=== PATIENT | male | born 1975 ===

== ENCOUNTER 2024-06-18 14:34 | Outpatient (AMB) | payer MEDICAID, SELFPAY ==
--- NOTE | 2024-06-18 14:36 | MHC.OFFVIS ---
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 Pt states this started years ago with no known injury. Pt denies any surgeries or injections on either hand. Pt states the pain comes and goes. Pt states his right hand and wrist hurt more than his left. Pt states his cyst on his left thumb has gotten smaller and isn't as painful but states he does have pain when he puts pressure on it. 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 The patient states that all of these issues began ?years ago?, and have remained constant since that time. The patient does report that his thumb mass does increase and decrease in size, and then it was fairly small at this time. Patient does report that it causes him significant discomfort when he bumps it thing on the mass of his thumb or he presses on it. Patient reports that his numbness and tingling is intermittent, but daily, and worse at night. Patient states that he feels like he gets significant hand cramps while sleeping, and that this wakes him from sleep. Patient also reports that his wrist pain is primarily in the volar aspect of the bilateral wrists, and radiates into the forearm bilaterally. Review of Systems Const All systems reviewed & are unremarkable except as noted in HPI and below Physical Exam Extrem Other: Neuro: Normal sensation of the tips of all digits of bilateral hands in the office today No thenar or intrinsic wasting. Good APB muscle firing and good finger cross. Vascular: Capillary refill brisk. Pain: Patient reports tenderness to palpation of at about the level of the mass of the dorsal aspect of his left thumb No tenderness to palpation about bilateral radial styloid, ulnar styloid, DRUJ is, or elsewhere on bilateral hands and wrists Patient does report slight discomfort with resisted flexion of bilateral wrists No pain with resisted extension of bilateral wrists ROM: Patient can make a fist and extend all their digits. Flexion and extension of bilateral wrists full and intact Skin: No lacerations or abrasions noted. There is noted to be an approximately 2.5 cm x 1 cm mass noted over the dorsal IP joint of the left thumb, that feels fluid filled to palpation General: No ecchymosis. No erythema or evidence of infection. Assessment & Plan Assessment & Plan (1) Tendonitis of both wrists: Code(s): M77.8 - Other enthesopathies, not elsewhere classified Category: Medical (2) Numbness and tingling in both hands: Code(s): R20.0 - Anesthesia of skin; R20.2 - Paresthesia of skin Category: Medical (3) Mass of skin of left thumb: Code(s): R22.32 - Localized swelling, mass and lump, left upper limb Category: Medical Plan 1. Numbness and tingling of bilateral hands Symptoms intermittent, but daily, worse at night At this time, patient does an EMG or nerve conduction study file Patient was referred for EMG and nerve conduction study to assess the health of the nerves of bilateral upper extremities Patient is amenable to this plan Patient will follow-up after EMG and nerve conduction study with Dr. Cortez for results review and discussion of further treatment options if indicated 2. Mass of left thumb Mass increases and decreases in size with time, feels fluid filled the palpation Patient will be evaluated by Dr. Cortez after EMG and nerve conduction study, and at that time he can also have a discussion with her about potential treatment options available for this mass, including but not limited to aspiration and/or excision Patient understands this and is amenable to this plan 3. Flexor tendinitis of bilateral wrists Patient was referred to occupational therapy for range of motion and strengthening of bilateral wrists in the setting of wrist tendinitis Patient is advised on the importance of activity modification in the setting of tendinitis Patient is also advised on conservative pain management measures, such as rest, ice, elevation, topical pain medication, and [id number] pain medication as needed Patient understands this and is amenable to this plan Patient will follow-up as needed with concerns Orders: Orders NE electromyogram (EMG) 06/18/24 R20.0 - Anesthesia of skin, R20.2 - Paresthesia of skin NE nerve conduction velocity 06/18/24 R20.0 - Anesthesia of skin, R20.2 - Paresthesia of skin OT Evaluation and Treatment 06/18/24 M77.8 - Other enthesopathies, not elsewhere classified Coding Level of Care Code New Pt Level 3 (51698) Diagnoses Tendonitis of both wrists M77.8 Numbness and tingling in both hands R20.0; R20.2 Mass of skin of left thumb R22.32
== END 2024-06-18 15:09 | disposition home or self-care (01) ==
PROVIDERS: PCP Physician Assistant Medical
DX: M77.8 Other enthesopathies, not elsewhere classified (principal); R20.0 Anesthesia of skin; R20.2 Paresthesia of skin; R22.32 Localized swelling, mass and lump, left upper limb
CPT/HCPCS: 99203

== ENCOUNTER → 2024-06-18 14:34 | Outpatient (BNVA) | payer MEDICAID, SELFPAY | PROVIDERS: PCP Physician Assistant Medical | DX: M79.642 Pain in left hand (principal); M79.641 Pain in right hand; L72.9 Follicular cyst of the skin and subcutaneous tissue, unspecified; R20.0 Anesthesia of skin; R20.2 Paresthesia of skin; M77.8 Other enthesopathies, not elsewhere classified | CPT/HCPCS: 99212 ==

== ENCOUNTER 2024-06-26 09:56 | Outpatient (AMB) | payer MEDICAID, SELFPAY ==
--- NOTE | 2024-06-26 10:03 | A.OFFVIS_ITS ---
Intake Visit Reasons: New prob - Bilat shoulder pain Intake Note: Manjinder a 49 year old right hand dominant male who presents today for an evaluation of bilateral shoulder pain. Patient reports his pain has been present for a while, about 1-2 years. His pain in his right shoulder is worse. He is attending PT which has helped with his left shoulder. Limited ROM. His pain is worse with sleeping as well as numbness and tingling in his hand. Project Financial Analyst Required: Yes Project Financial Analyst Services: Project Financial Analyst Present Project Financial Analyst Name: Mariela ID#[id number] Allergies Penicillins Allergy (Verified 06/26/24 10:17) Unknown Medication List - Last Reconciled 06/26/24 by Krupa Taveras PA-C atorvastatin 10 mg PO BEDTIME cetirizine 10 mg PO DAILY chlorthalidone 25 mg PO DAILY escitalopram oxalate 20 mg PO DAILY fluticasone propionate 50 mcg/actuation 2 sprays intranasal BEDTIME hydroxyzine HCl 50 mg PO TID PRN levothyroxine 150 mcg PO DAILY omeprazole 20 mg PO QAM HPI HPI New prob - Bilat shoulder pain: Details: 49-year-old right hand dominant male who presents to the office today with an integrated marketing manager for an evaluation of bilateral shoulder pain for over a year. He states he has weakness, limited ROM and pain in his bilateral shoulder that is worse on the right shoulder. 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 He also experiences numbness and tingling in his hand at night. He has been attending physical therapy and working on home exercises that does not provide him much relief. [facility] Surgical History (Updated 06/26/24 @ 10:12 by ESTRELLA Santos) History of surgery on lower extremity Hx of thyroidectomy Social History (Updated 06/26/24 @ 10:13 by ESTRELLA Santos) Patient Tobacco Use Status: Never used Tobacco Current occupational status: unemployed Current occupation: right hand dominant Review of Systems Const All systems reviewed & are unremarkable except as noted in HPI and below Physical Exam Extrem Other: Left shoulder: Normal to inspection. Tenderness over the bicipital groove and along the deltoid region of the shoulder. Forward flexion to 175, external rotation to 90, internal rotation to S1. 5/5 RTC strength. Negative Esteves and cross body abduction. NVI. Right shoulder: Normal to inspection. Tenderness over the bicipital groove and along the deltoid region of the shoulder. Forward flexion to 175, external rotation to 90, internal rotation to S1. 5/5 RTC strength. Positive Esteves. NVI. Office Procedures Joint Injection/Aspiration Joint Injection/Aspiration Primary Site: right shoulder Prep: site was prepped using aseptic technique, ethochloride spray was applied and injection warnings given Injected: 80 mg of, DepoMedrol, with 8 mL of, 1% plain lidocaine and in the subcromial space Approach Used: posterolateral Procedure: The patient tolerated the procedure well and there was some relief with the local anesthesia Coding 07755 - Glenohumeral/Tronchanteric Bursa/Intraarticular Procedure code (CPT) selection complete Results Reviewed Results Reviewed: Xrays were obtained in the office today and personally reviewed by me of lisseth shoulder show type two acromion Assessment & Plan Assessment & Plan (1) Tendonitis of both shoulders: Code(s): M77.8 - Other enthesopathies, not elsewhere classified Category: Medical Plan We discussed options today, which include steroid injection. The patient did consent to move forward with the right shoulder injection, which was tolerated well. I recommended rest, ice, and elevation and OTC anti-inflammatories as needed for discomfort. If symptoms persist over the next 6-8 weeks, they will contact the office, otherwise as needed. He was also referred to a course of physical therapy for his bilateral shoulders. Orders: Orders XR shoulder LT min 2V Today M25.512 - Pain in left shoulder PT Evaluation and Treatment Today M77.8 - Other enthesopathies, not elsewhere classified XR shoulder RT min 2V Today M25.511 - Pain in right shoulder Patient Instructions: Scribed for Krupa Taveras PA-C, by Mahamed Caal medical office asst, on 06/26/2024 at 10:00 AM EST.? I, Krupa Taveras PA-C, have personally reviewed and agree with the information entered by the scribe. Coding Level of Care Code Est Pt Level 3 (33163) Complex EM visit Add On G2211 Diagnoses Tendonitis of both shoulders M77.8 CPT Codes Coding - Joint 7: 13249 - Glenohumeral/Tronchanteric Bursa/Intraarticular ([id number])
== END 2024-06-26 10:47 | disposition home or self-care (01) ==
PROVIDERS: PCP Physician Assistant Medical; Visit Provider Physician Assistant
DX: M25.511 Pain in right shoulder (principal); M25.512 Pain in left shoulder; M77.8 Other enthesopathies, not elsewhere classified
CPT/HCPCS: 20610; 99213

== ENCOUNTER 2024-06-26 10:18 | Outpatient (REF) | payer MEDICAID, SELFPAY ==
--- NOTE | ~2024-06-26 | XR_ITS ---
EXAMINATION: XR SHOULDER RIGHT 3 VIEWS CLINICAL INFORMATION: Pain in right shoulder M25.511. COMPARISON: None available TECHNIQUE: AP neutral, supraspinatus, and axial seated views of the right shoulder. FINDINGS: The bones and soft tissues are normal. No fracture. Glenohumeral and acromioclavicular alignment is anatomic with normal joint space. No abnormal soft tissue calcifications. XR/XR shoulder RT min 2V IMPRESSION: Normal right shoulder. Electronically signed by: Brian Hanna MD 08/15/2024 11:00 AM [facility]
--- NOTE | ~2024-06-26 | XR_ITS ---
EXAMINATION: XR SHOULDER LEFT 3 VIEWS CLINICAL INFORMATION: Pain in left shoulder M25.512. COMPARISON: None available TECHNIQUE: Neutral AP, supraspinatus outlet and axial seated views of the left shoulder. FINDINGS: The bones and soft tissues are normal. No fracture. Glenohumeral and acromioclavicular alignment is anatomic with normal joint space. No abnormal soft tissue calcifications. XR/XR shoulder LT min 2V IMPRESSION: Normal left shoulder. Electronically signed by: Brian Hanna MD 08/15/2024 10:49 AM [facility]
== END 2024-06-26 10:19 | disposition home or self-care (01) ==
LOC: HO.HOSX 10:18
PROVIDERS: Visit Provider Physician Assistant
DX: M25.512 Pain in left shoulder (principal); M25.511 Pain in right shoulder; M77.8 Other enthesopathies, not elsewhere classified
CPT/HCPCS: 20610; 73030; 99212; J1010; J2003

== ENCOUNTER 2024-07-16 10:36 | Outpatient (REF) | payer MEDICAID, SELFPAY ==
--- NOTE | 2024-07-16 10:40 | EMG_ITS ---
Chief complaint: Bilateral hand numbness Reason for referral: Evaluate for Carpal Tunnel Syndrome Referred by: Guille MCKOY Procedure done: Bilateral upper extremities NCS/EMG Precautions and/or limitations: None The limb temperature was monitored continuously and remained between 32-36 degrees C during the performance of the NCS. Nerve Conduction Studies Anti Sensory Summary Table ?Stim Site NR Onset (ms) Norm Onset (ms) Peak (ms) Norm Peak (ms) O-P Amp (?V) Norm O-P Amp Site1 Site2 Delta-0 (ms) Dist (cm) Andreas (m/s) Norm Andreas (m/s) Left Median Anti Sensory (2nd Digit) Wrist ? 3.0 4.3 <3.6 8.4 >10 Wrist 2nd Digit 3.0 14.0 47 Right Median Anti Sensory (2nd Digit) Wrist ? 3.4 4.9 <3.6 1.9 >10 Wrist 2nd Digit 3.4 14.0 41 Right Radial Anti Sensory (Thumb) Forearm ? 1.4 2.1 <3.1 18.9 Forearm Thumb 1.4 0.0 Left Ulnar Anti Sensory (5th Digit) Wrist ? 0.3 2.8 <3.7 22.0 >15.0 Wrist 5th Digit 0.3 14.0 467 Right Ulnar Anti Sensory (5th Digit) Wrist ? 1.0 2.9 <3.7 18.9 >15.0 Wrist 5th Digit 1.0 14.0 140 Motor Summary Table ?Stim Site NR Onset (ms) Norm Onset (ms) O-P Amp (mV) Norm O-P Amp iAmp (mV) Amp (1st) (%) Site1 Site2 Delta-0 (ms) Dist (cm) Andreas (m/s) Norm Andreas (m/s) Left Median Motor (Abd Poll Brev) Wrist ? 4.9 <3.9 12.1 >4.5 14.1 100.0 Elbow Wrist 4.2 24.0 57 >45 Elbow ? 9.1 11.9 14.2 98.3 Right Median Motor (Abd Poll Brev) Wrist ? 4.8 <3.9 9.7 >4.5 11.5 100.0 Elbow Wrist 4.2 24.5 58 >45 Elbow ? 9.0 9.3 11.5 95.9 Left Ulnar Motor (Abd Dig Minimi) Wrist ? 2.6 <3.0 7.2 >5 8.9 100.0 B Elbow Wrist 3.7 24.0 65 >45 B Elbow ? 6.3 7.0 8.9 97.2 A Elbow B Elbow 1.5 10.0 67 >45 A Elbow ? 7.8 7.0 8.9 97.2 Right Ulnar Motor (Abd Dig Minimi) Wrist ? 2.7 <3.0 9.9 >5 12.3 100.0 B Elbow Wrist 3.8 23.0 61 >45 B Elbow ? 6.5 9.3 11.7 93.9 A Elbow B Elbow 1.1 10.0 91 >45 A Elbow ? 7.6 9.4 12.0 94.9 EMG ?Side Muscle Nerve Root Ins Act Fibs Psw Amp Dur Poly Recrt Int Pat Comment Right 1stDorInt Ulnar C8-T1 Nml Nml Nml Nml Nml 0 Nml Complete Right FlexCarRad Median C6-7 Nml Nml Nml Nml Nml 0 Nml Complete Right Biceps Musculocut C5-6 Nml Nml Nml Nml Nml 0 Nml Complete Right Triceps Radial C6-7-8 Nml Nml Nml Nml Nml 0 Nml Complete Right Deltoid Axillary C5-6 Nml Nml Nml Nml Nml 0 Nml Complete Left 1stDorInt Ulnar C8-T1 Nml Nml Nml Nml Nml 0 Nml Complete Left FlexCarRad Median C6-7 Nml Nml Nml Nml Nml 0 Nml Complete Left Biceps Musculocut C5-6 Nml Nml Nml Nml Nml 0 Nml Complete Left Triceps Radial C6-7-8 Nml Nml Nml Nml Nml 0 Nml Complete Left Deltoid Axillary C5-6 Nml Nml Nml Nml Nml 0 Nml Complete FINDINGS: Bilateral median motor nerves showed prolonged distal latency, normal amplitude and normal conduction velocity. Bilateral median sensory nerve showed prolonged peak latency and small amplitude. All other nerves tested were within normal. Concentric needle EMG was performed in selected muscles of the bilateral upper extremities. Study did not reveal signs of electric abnormalities as shown in the table above. IMPRESSION: 1. This is an abnormal study. 2. There is electrodiagnostic evidence for bilateral moderate-severe median neuropathy at the wrist, consistent with carpal tunnel syndrome. 3. There is no electrodiagnostic evidence for ulnar neuropathy, brachial plexopathy, or cervical radiculopathy. Thank you for your kind referral. Coco Corona MD, MARIELA Board Certified, [place] Board [employer] and Rehabilitation (ABPMR) Board Certified, [place] Board of Electrodiagnostic Medicine (ABEM) CODIN [phone] 2 MTDD
== END 2024-07-16 10:37 | disposition home or self-care (01) ==
LOC: HO.NEURO 10:36
PROVIDERS: PCP Physician Assistant Medical
DX: R20.0 Anesthesia of skin (principal); R20.2 Paresthesia of skin
CPT/HCPCS: 20610; 95886; 95911; 99212; J1010; J2003

== ENCOUNTER 2024-07-16 10:52 | Outpatient (REF) | payer MEDICAID, SELFPAY | END 2024-07-16 10:53 | disposition home or self-care (01) | LOC: HO.HOSX 10:52 | PROVIDERS: Visit Provider Physician Assistant | DX: M25.562 Pain in left knee (principal); M25.561 Pain in right knee | CPT/HCPCS: 73560; 73562 ==

== ENCOUNTER 2024-07-16 12:33 | Outpatient (AMB) | payer MEDICAID, SELFPAY ==
--- NOTE | 2024-07-16 12:56 | MHC.OFFVIS ---
Vital Signs 07/16/24 13:07 Height 6 ft 2 in Weight 220 lb BMI 28.2 Intake Visit Reasons: New prob- left knee pain Intake Note: Manjinder is a 49 year old male who presents to the office today for an evaluation of left knee pain. Patient reports his pain has been present for quite some time. He has had injections in the past as well as attended PT. He also mentions having a left knee meniscus repair on 03/23/23 with [facility] for a WC injury. He states due to his insurance he was referred to [facility] orthopedics. He has intermittent pain however more constant than not and is located around his knee. He is unable to lift heavy objects, run or kneel on his knee. He has difficulty with stair use. Finds very little relief with ibuprofen and no relief Tylenol. Allergies Penicillins Allergy (Verified 07/16/24 13:13) Unknown HPI HPI New prob- left knee pain: Details: The patient is a 49-year-old male who presents to the office today with a new problem of left knee pain. He was previously seen in the office for shoulder pain, which has resolved now. He states that he underwent arthroscopic knee surgery back in March 2023, for repair of the meniscus, and did well after that. He did not need any brace after the surgery. He reports later he met with an accident in September 2023, and injured his left knee. He went to see at [facility] after workers? comp approved for the surgery, but later his insurance got declined. He did an MRI of left knee at [facility] in October 2023, which showed some arthritis around the knee, ACL and PCL are intact. There is a loose bony part inside of the knee. He still continues to have pain behind the knee and also gets pain if he sits for a long time. He is interested in getting cortisone injection for the knee on today?s visit. [facility] Surgical History History of surgery on lower extremity Hx of thyroidectomy Social History Patient Tobacco Use Status: Never used Tobacco Current occupational status: unemployed Current occupation: right hand dominant Review of Systems Const All systems reviewed & are unremarkable except as noted in HPI and below Physical Exam Vital Signs: BMI result Body Mass Index 28.2 Extrem Other: Left knee: Skin intact, no erythema or joint effusion. Tenderness along the lateral retropatellar tenderness. Full ROM with crepitus. Negative Santana?s. No ligamentous laxity. NVI. Office Procedures AMB Joint Injection/Aspiration Joint Injection/Aspiration Primary Site: left knee Prep: site was prepped using aseptic technique, ethochloride spray was applied and injection warnings given Injected: 80 mg of, DepoMedrol, with 8 mL of, 1% plain lidocaine and in the joint Approach Used: anterolateral Procedure: The patient tolerated the procedure well and there was some relief with the local anesthesia Coding - Glenohumeral/Tronchanteric Bursa/Intraarticular Procedure code (CPT) selection complete Assessment & Plan Assessment & Plan (1) Patellofemoral arthritis of right knee: Code(s): M17.11 - Unilateral primary osteoarthritis, right knee Category: Medical Plan We discussed options today, which include steroid injection. The patient did consent to move forward with left knee steroid injection, which was tolerated well.? I recommended rest, ice and elevation and OTC antiinflammatories prn for discomfort. He was also referred to PT. If symptoms persist over the next 6-8 weeks, they will contact our office, otherwise, prn Scribed for Krupa Taveras PA-C, by Mauro Vega medical billing coordinator, on 07/16/2024 at 13:00 PM EL. I, Krupa Tavears PA-C, have personally reviewed and agree with the information entered by the scribe. Orders: Orders XR knee LT 3V Today M25.562 - Pain in left knee XR knee RT 1V Today M25.561 - Pain in right knee PT Evaluation and Treatment Today M17.11 - Unilateral primary osteoarthritis, right knee Coding Level of Care Code Est Pt Level 3 (65435) Complex EM visit Add On G2211 Diagnoses Patellofemoral arthritis of right knee M17.11 CPT Codes Coding - Joint 7: 86953 - Glenohumeral/Tronchanteric Bursa/Intraarticular ([id number])
[2024-07-16 13:07] VITALS: BMI 28.2
== END 2024-07-16 13:57 | disposition home or self-care (01) ==
PROVIDERS: PCP Physician Assistant Medical; Visit Provider Physician Assistant
DX: M17.11 Unilateral primary osteoarthritis, right knee (principal); G56.03 Carpal tunnel syndrome, bilateral upper limbs
CPT/HCPCS: 20610; 95886; 95911; 99213

== ENCOUNTER 2024-07-17 15:34 | Outpatient (REF) | payer MEDICAID, SELFPAY | END 2024-07-17 15:35 | disposition home or self-care (01) | LOC: HO.HOSX 15:34 | PROVIDERS: Visit Provider Physician Assistant | DX: Z13.89 Encounter for screening for other disorder (principal) ==

== ENCOUNTER 2024-07-18 09:30 | Outpatient (AMB) | payer MEDICAID, SELFPAY ==
--- NOTE | 2024-07-18 09:47 | MHC.OFFVIS ---
Vital Signs 07/18/24 09:53 Height 6 ft 2 in Weight 220 lb BMI 28.2 Intake Visit Reasons: New prob- Lt hip pain Intake Note: Manjinder a 49 year old male who presents today for an evaluation of left hip pain. Patient reports his hip pain has been present since 2019 after a fall to the ground on his left side. His pain is located at the lateral aspect of hip. He describes his pain as throbbing as well as a pinching sensation. He will hear cracking with ROM. He has tried and failed cortisone injection last year. He does at home exercises which helps. Repair Technician Name: [id number] Allergies Penicillins Allergy (Verified 07/16/24 13:13) Unknown Medication List - Last Reconciled 07/18/24 by Krupa Taveras PA-C atorvastatin 10 mg PO BEDTIME cetirizine 10 mg PO DAILY chlorthalidone 25 mg PO DAILY escitalopram oxalate 20 mg PO DAILY fluticasone propionate 50 mcg/actuation 2 sprays intranasal BEDTIME hydroxyzine HCl 50 mg PO TID PRN levothyroxine 150 mcg PO DAILY omeprazole 20 mg PO QAM HPI HPI New prob- Lt hip pain: Details: 49-year-old male who presents to the office today with an national accounts recruiter for an evaluation of left hip pain. He reports his pain started since 2019 after slipping and falling on his left hip. He currently states he has throbbing pain at the lateral aspect of his hip that is aggravated with moving a certain way, bending, stairs, sitting down and getting in and out of his car. He also experiences difficulty with ambulation and hears a cracking sensation in his hip with certain motions. He denies any numbness or tingling. He has tried cortisone injection last year without relief. He also had physical therapy in the past which worsened his pain. He works on home exercises that provides him relief. [facility] Surgical History History of surgery on lower extremity Hx of thyroidectomy Social History Patient Tobacco Use Status: Never used Tobacco Current occupational status: unemployed Current occupation: right hand dominant Review of Systems Const All systems reviewed & are unremarkable except as noted in HPI and below Physical Exam Vital Signs: BMI result Body Mass Index 28.2 Extrem Other: Left hip: Normal to inspection, ambulates with a slight limp. Has mild discomfort with internal and extension rotation of hip. No significant stiffness. Mild discomfort with hip flexion against resistance. NVI. Results Reviewed Results Reviewed: Xrays were obtained in the office today and personally reviewed by me of the right hip show mild oa with loose body formation Assessment & Plan Assessment & Plan (1) Osteoarthritis of left hip: Code(s): M16.12 - Unilateral primary osteoarthritis, left hip Category: Medical Plan An MRI of the left hip was ordered to further evaluate the hip and surrounding structures given the limited mobility and increased pain he has with activities. Once the scan is complete, I will contact him to discuss the next step in his treatment. Orders: Orders XR hip LT min 2V Today M25.552 - Pain in left hip MR hip LT wo con Today M16.12 - Unilateral primary osteoarthritis, left hip Patient Instructions: Scribed for Krupa Taveras PA-C, by Mahamed Caal medical review specialist, on 07/18/2024 at 9:45 AM EST.? I, Krupa Taveras PA-C, have personally reviewed and agree with the information entered by the scribe. Coding Level of Care Code Est Pt Level 3 (54975) Complex EM visit Add On G2211 Diagnoses Osteoarthritis of left hip M16.12
[2024-07-18 09:53] VITALS: BMI 28.2
== END 2024-07-18 10:20 | disposition home or self-care (01) ==
PROVIDERS: PCP Physician Assistant Medical; Visit Provider Physician Assistant
DX: M16.12 Unilateral primary osteoarthritis, left hip (principal)
CPT/HCPCS: 99213

== ENCOUNTER 2024-07-18 09:30 | Outpatient (REF) | payer MEDICAID, SELFPAY ==
--- NOTE | ~2024-07-18 | XR_ITS ---
EXAMINATION: XR HIP, LEFT CLINICAL INFORMATION: M25.552 - Pain in left hip COMPARISON: None available. TECHNIQUE: Two views of the left hip. FINDINGS: No fracture. Alignment is anatomic. Hip joint space is maintained. There is heterotopic ossification off of the greater trochanter of the left femoral neck consistent with healing from a prior trauma. There is old healed fracture partially visualized within the mid left femur XR/XR hip LT min 2V IMPRESSION: No acute process. Heterotopic ossification off of the greater trochanter of the left femoral neck consistent with healing from a prior trauma. Electronically signed by: Brian Hanna MD 08/15/2024 10:59 AM [facility]
== END 2024-07-18 09:31 | disposition home or self-care (01) ==
LOC: HO.HOSX 09:30
PROVIDERS: PCP Physician Assistant Medical; Visit Provider Physician Assistant
DX: M25.552 Pain in left hip (principal); M16.12 Unilateral primary osteoarthritis, left hip
CPT/HCPCS: 73502; 99212

== ENCOUNTER 2024-08-04 13:25 | Outpatient (AMB) | payer MEDICAID, SELFPAY ==
--- NOTE | 2024-08-04 14:02 | A.OFFVIS_ITS ---
Vital Signs 08/04/24 14:03 Height 6 ft 2 in Weight 220 lb BMI 28.2 Handedness Right Intake Visit Reasons: OV-EMG B/L hand Review Intake Note: Manjinder is a 49 year old right hand dominant male who presents today for an EMG review of his bilateral hands. EMG done on 07/16/2024. He would like to discuss treatment options. Collection Analyst Required: Yes Collection Analyst Language: Senior Occupational Therapist Name: [id number] Allergies Penicillins Allergy (Verified 08/04/24 14:03) Unknown HPI HPI OV-EMG B/L hand Review: Details: Patient is a 49-year-old male presents for EMG review of bilateral hands. Patient states that his symptoms have remained intermittent, but daily, and worse at night. The patient does express some apprehension about surgical intervention for his carpal tunnel syndrome. No other Acute concerns at this time. [facility] Surgical History History of surgery on lower extremity Hx of thyroidectomy Social History Patient Tobacco Use Status: Never used Tobacco Current occupational status: unemployed Current occupation: right hand dominant Physical Exam Vital Signs: BMI result Body Mass Index 28.2 Extrem Other: Neuro: Normal sensation of the tips of all digits of bilateral hands in the office today No thenar or intrinsic wasting. Good APB muscle firing and good finger cross. Vascular: Capillary refill brisk. Pain: Patient reports tenderness to palpation of at about the level of the mass of the dorsal aspect of his left thumb No tenderness to palpation about bilateral radial styloid, ulnar styloid, DRUJ is, or elsewhere on bilateral hands and wrists Patient does report slight discomfort with resisted flexion of bilateral wrists No pain with resisted extension of bilateral wrists ROM: Patient can make a fist and extend all their digits. Flexion and extension of bilateral wrists full and intact Skin: No lacerations or abrasions noted. There is noted to be an approximately 2.5 cm x 1 cm mass noted over the dorsal IP joint of the left thumb, that feels fluid filled to palpation General: No ecchymosis. No erythema or evidence of infection. Assessment & Plan Assessment & Plan (1) Carpal tunnel syndrome, bilateral: Code(s): G56.03 - Carpal tunnel syndrome, bilateral upper limbs Category: Medical Plan Carpal tunnel syndrome, right Symptoms intermittent, daily, worse at night I educated the patient about the condition. I discussed both operative and nonoperative treatment options. The patient would like to proceed with surgery. The risks and benefits of operative treatment were discussed with the patient and the patient wishes to proceed with surgery. These risks include, but are not limited to, risk of damage to blood vessels, nerves, tendons, infection, recurrence, incomplete relief of preoperative symptoms, persistent pain, possible need for further surgery, and the risks associated with regional blocks and/or anesthesia. Plan is to take the patient to the operating room at some point in the next few weeks for the following procedures: 1. Right carpal tunnel release under local anesthesia All of the preoperative paperwork including the consent was discussed today. All of the patient's questions were answered in the clinic today. The patient understands that they will be in contact with our surgical appliances salesperson to discuss scheduling their procedure. Patient denies diabetes, blood thinners, asthma, heart issues, lung issues, kidney issues, or current smoking. 2. Carpal tunnel syndrome, left Symptoms intermittent, daily, worse at night At this time, patient would like to proceed with operative intervention on the right side prior to any intervention of the left, as he finds this side more bothersome Patient is educated that at his postoperative visits from his right-sided surgery, we can get the left signed up if he is recovering Patient was amenable to this Patient will follow-up for surgery on given surgical date, sooner acute Coding Level of Care Code Est Pt Level 4 (32869) Diagnoses Carpal tunnel syndrome, bilateral G56.03
[2024-08-04 14:03] VITALS: BMI 28.2
== END 2024-08-04 14:47 | disposition home or self-care (01) ==
PROVIDERS: PCP Internal Medicine Hematology & Oncology
DX: G56.03 Carpal tunnel syndrome, bilateral upper limbs (principal)
CPT/HCPCS: 99214

== ENCOUNTER → 2024-08-04 13:25 | Outpatient (BNVA) | payer MEDICAID, SELFPAY | PROVIDERS: PCP Internal Medicine Hematology & Oncology | DX: G56.03 Carpal tunnel syndrome, bilateral upper limbs (principal) | CPT/HCPCS: 99212 ==

== ENCOUNTER 2024-08-05 08:49 | Outpatient (RCR) | payer MEDICAID, SELFPAY ==
--- NOTE | 2024-07-07 12:19 | MHC.OT.EP ---
[address] [phone] Occupational Therapy Plan of Care Patient Name: Manjinder Moreno Date of Evaluation: 07/07/24 Diagnosis: B wrist pain Pain Location: volar side of R hand Pain Score: 5 Pain Scale Used: Numeric (0 - 10) Aggravating Factors: use rotation of wrist / pressure into hand; pain increases from 4/10 when during Alleviating Factors: restin his hand is the only thing that helps ; tylenol Ibuprofen, and Aleeve only give MILD relied Assessment: Pt is a 49 yr. old R hand dominant reports when he is using volar side of hand the tendons are pulling. He reports only feeling pain/ tightness on his volar R hand. He reports it has been bothering him for a few mos. He is having PT performed to his R shoulder at [facility] and reports intermittent paresthesia in his R hand since beginning Physical Therapy. He denies any night time bracing, MRI, or cortisones for wrist/hands. He has an EMG scheduled here at [facility] for 07/16/24. He has been referred to skilled OT therapy for decrease of pain, and increase of strength and functional use of his R hand Phalens (+) R (-)L Reverse phalens (+)R Finklestein : mild (+) Tinels : (+) R L (+) MILD Frequency and Duration: The patient will be seen 2xs a week for 4 weeks Short Term Goals: Pt will be complaint w/ his HEP Pt will be complaint w/ night time splinting Pt will report 3/10 pain w/ activity Tear Down Matcher Goals: Pt will report using his R hand to drive w/out complaints of pain Pt will will gain 10lbs of R hand care center manager to 55 lbs Pt will report a 2/10 pain w/ activity Treatment Plan: Therapeutic Exercise Therapeutic Activity Home Exercise Program Splinting Neuro Re-ed Patient Education Desensitization/Sensory Re-ed Edema Control ADL Training Ultrasound NMES Iontophoresis Paraffin Fluidotherapy MHP Cold Packs Joint Mobilization Soft Tissue Mobilization Kinesiotaping Other (see comments) Trial Iontophoresis ; pt. can only attend 1 x a week for availability reasons Electronically Signed By: Lexus Thomas OTR/L Please Sign and return to therapist. Thank you once again for your referral.
== END 2024-08-05 09:52 | disposition home or self-care (01) ==
LOC: HO.OT 08:49
PROVIDERS: PCP Physician Assistant Medical
DX: M77.8 Other enthesopathies, not elsewhere classified (principal)
CPT/HCPCS: 97035; 97110; 97140; 97166

== ENCOUNTER 2024-08-20 18:51 | Outpatient (REF) | payer MEDICAID, SELFPAY ==
--- NOTE | ~2024-08-20 | MR_ITS ---
EXAMINATION: MR HIP WITHOUT CONTRAST, LEFT CLINICAL INFORMATION: Osteoarthritis left hip COMPARISON: X-rays of the pelvis and left hip 07/18/2024 TECHNIQUE: MRI of the left hip was obtained using routine sequences on a high-field magnet. FINDINGS: Osseous structures: Left hip joint: Minimal cartilage heterogeneity along the superior aspect of the femoral articular surface. Overall minimal arthrosis. No effusion. There is ossification/heterotopic ossification abutting the greater tuberosity. There is adjacent metallic artifact as well as changes within the proximal femur compatible with prior surgery which appears to be related to prior femoral marco antonio placement subsequently removed. Remaining bone and joints in the pelvis are normal. Ligamentum teres: Normal. Labrum\capsule: There is a lobulated cyst abutting the outer aspect of the superior labrum extending through the labral base at the labral chondral junction. This has the appearance of a para labral cyst likely related to small nondisplaced tear of the base of the superior labrum. The cyst measures 10 x 5 x 12 mm at. Remaining portions of the labrum are normal. Muscles/tendons: Minimal heterogeneity of the distal gluteus medius tendon compatible with tendinosis and/or partial tearing. No measurable defect or tendon retraction. There is some metallic artifact in the gluteal muscles adjacent to the greater trochanter compatible with prior surgery. Neurovascular structures: Normal. Subcutaneous soft tissues normal. Intrapelvic soft tissues: Somewhat prominent seminal vesicles typically without clinical significance. MR/MR hip LT wo con IMPRESSION: IMPRESSION: 1. Minimal arthrosis of the left hip joint. 2. Probable nondisplaced tear of the superior labrum with a para labral cyst. 3. Postsurgical changes in the left femur and surrounding soft tissues. 4. Minimal abnormality of the gluteus medius tendon compatible with tendinosis and/or minimal partial tearing without any measurable defect or tendon retraction. Electronically signed by: Vinicio Bar MD 08/21/2024 12:02 PM [facility]
== END 2024-08-20 18:52 | disposition home or self-care (01) ==
LOC: HO.MRI 18:51
PROVIDERS: Visit Provider Physician Assistant
DX: M16.12 Unilateral primary osteoarthritis, left hip (principal)
CPT/HCPCS: 73721

== ENCOUNTER 2024-09-09 12:17 | Outpatient (AMB) | payer MEDICAID, SELFPAY ==
--- NOTE | 2024-09-09 12:37 | MHC.OFFVIS ---
Vital Signs 09/09/24 12:38 Height 6 ft 2 in Weight 220 lb BMI 28.2 Intake Visit Reasons: O/V- Ganglion of L Thumb Intake Note: Manjinder is a 49 year old right hand dominant male presents today for his follow up visit for his left thumb mass. Last seen with Ruchi Han who wants patient to be re-evaluated to discuss aspiration vs surgical intervention. Patient is scheduled to have right hand CTR 10/06/24. Allergies Penicillins Allergy (Verified 09/09/24 12:54) Unknown HPI HPI O/V- Ganglion of L Thumb: Details: Manjinder is a 49 year old right hand dominant Mohawk speaking man who presents for a left thumb mass. He has a mass on the dorsal aspect of his left thumb. He says this has been present for over a year now, and has been changing in size. He has bilateral carpal tunnel syndrome, symptoms intermittent, but daily, worse at night. He is scheduled for a right carpal tunnel release on 10/06/24. [facility] Surgical History History of surgery on lower extremity Hx of thyroidectomy Social History Patient Tobacco Use Status: Never used Tobacco Current occupational status: unemployed Current occupation: right hand dominant Review of Systems Const All systems reviewed & are unremarkable except as noted in HPI and below Physical Exam Vital Signs: BMI result Body Mass Index 28.2 Const General: cooperative, healthy appearing and no acute distress Orientation/consciousness: patient oriented x3 HEENT Head: Yes normocephalic and Yes atraumatic Eyes EOM: EOMs intact bilaterally Resp Effort & Inspection: normal respiratory effort and able to speak in complete sentences Cardio Jugular venous distension: no JVD Skin General skin exam: turgor normal Rashes: no rashes Neuro General: patient oriented x3 Extrem Other: Evaluation of Left Upper Extremity: The patient is alert, oriented, and in no acute distress Neuro: Median, Ulnar, Radial nerves motor and sensory intact and sensation is normal to the tips of all digits Vascular: Cap refill brisk ROM: He can make a fist and extend all his digits Skin: No lacerations or abrasions. General: No Ecchymosis. No Erythema or evidence of infection. There is a mass on the dorsal aspect of the left thumb just proximal to the IP joint. This measures ~2.5cm*1cm in size. It is fluid filled, and consistent with a ganglion Nerve COnduction Study: IMPRESSION: 1. This is an abnormal study. 2. There is electrodiagnostic evidence for bilateral moderate-severe median neuropathy at the wrist, consistent with carpal tunnel syndrome. 3. There is no electrodiagnostic evidence for ulnar neuropathy, brachial plexopathy, or cervical radiculopathy. Coco Corona MD, MARIELA 07/16/24 Psych Appearance: grossly normal Affect: normal affect Attitude: cooperative Office Procedures AMB Fracture Care Details: No fracture, aspiration of ganglion Fracture Billing Code: Fracture Billing Code Assessment & Plan Assessment & Plan (1) Carpal tunnel syndrome, bilateral: Code(s): G56.03 - Carpal tunnel syndrome, bilateral upper limbs Category: Medical (2) Ganglion cyst of finger of left hand: Code(s): M67.442 - Ganglion, left hand Category: Medical Plan Assessment & Plan: 1. Left thumb ganglion cyst Dorsal aspect just proximal to the IP joint Measuring ~2.5cm*1cm in size I educated him about this condition I discussed operative and non-operative treatment options The patient would like to proceed with aspiration Aspiration #1: The risks and benefits of aspiration, including but not limited to risk of damage to blood vessels, nerves, tendons, infection, failure to improve symptoms, increased pain, and possible need for further aspirations or surgical intervention. After obtaining written consent, I sterilely prepped the area over the ganglion proximal to the Left thumb dorsal IP joint. I then injected subcutaneously with a small amount 1% lidocaine. I then passed an 18 gauge needle into the ganglion and aspirated some clear viscous fluid consistent with a ganglion. Some remaining viscous fluid was then pushed out of the ganglion. The patient tolerated this well and with no complications. 2. Right carpal tunnel syndrome, moderate-severe Symptoms intermittent, but daily, worse at night He is scheduled for a carpal tunnel release on 10/06/24 Please see previous note from 08/04/2024 for preoperative information. 3. Left carpal tunnel syndrome, moderate-severe Symptoms intermittent, but daily, worse at night We can discuss treatment options when he has recovered from surgery Scribed for Carolyn Cortez MD by Juan Ware medical numerical control operator, on 09/09/24 at 12:55 PM, EST. Coding Level of Care Code Est Pt Level 3 (75582) Diagnoses Carpal tunnel syndrome, bilateral G56.03 Ganglion cyst of finger of left hand M67.442 CPT Codes Fracture Care - Fracture Billing Code: Fracture Billing Code ([id number])
[2024-09-09 12:38] VITALS: BMI 28.2
== END 2024-09-09 13:36 | disposition home or self-care (01) ==
PROVIDERS: PCP Internal Medicine Hematology & Oncology; Visit Provider Orthopaedic Surgery
DX: G56.03 Carpal tunnel syndrome, bilateral upper limbs (principal); M67.442 Ganglion, left hand
CPT/HCPCS: 20612; 99213

== ENCOUNTER → 2024-09-09 12:17 | Outpatient (BNVA) | payer MEDICAID, SELFPAY | PROVIDERS: PCP Internal Medicine Hematology & Oncology; Visit Provider Orthopaedic Surgery | DX: G56.03 Carpal tunnel syndrome, bilateral upper limbs (principal); M67.442 Ganglion, left hand | CPT/HCPCS: 20612; 99212; J2003 ==

== ENCOUNTER → 2024-10-06 09:48 | Outpatient (BNV) | payer MEDICAID, SELFPAY | PROVIDERS: Visit Provider Orthopaedic Surgery | DX: G56.01 Carpal tunnel syndrome, right upper limb (principal) | CPT/HCPCS: 64721 ==

== ENCOUNTER 2024-10-15 13:42 | Outpatient (AMB) | payer MEDICAID, SELFPAY ==
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
--- OUTSIDE RECORDS SUMMARY | 2024-10-15 15:07 | XMS_ITS | Encounter Summary ---
Author Organization [facility] Address [address] [place] [address] Care Team Providers Care Gis Developer Name Role Phone Rose Mary Barnes PA-C Primary Care Provider [phone] Reason for Visit * Reason Comments Follow Up DM ,HTN follow up . No concern Encounter Details Date Type Department Care Team ([facility] Contact Info) Description 09/16/2024 11:20 AM EST Office Visit [address] [phone] Rose Mary Barnes PA-C [address] [place] [id number] Prediabetes (Primary Dx); Mixed hyperlipidemia; Immunization due Social History Tobacco Use Types Packs/Day Years Used Date Smoking Tobacco: Never Smokeless Tobacco: Never Tobacco Cessation:Counseling Given: No Alcohol Use Standard Drinks/Week Comments No 0 (1 standard drink = 0.6 oz pur e alcohol) Social Connections Answer Date Recorded Connectedness 1 09/16/2024 Financial Resource Strain Answer Date R ecorded Financial Resource Strain 1 2024 Stress Answer Date Recorded Stress 1 09/16/2024 Physical Activity Answer Date Recorded Physical Activity 0 04/28/2019 Food Insecurity Answer Date Recorded Food 1 09/16/2024 Transportation Needs Answer Date Record ed Transportation 1 09/16/2024 Housing Stability Answer Date Recorded Housing 1 09/16/2024 Safety and Environment Answer Date Robert rded Safety 1 01/09/2024 Utilities Answer Date Recorded Utilities 1 09/16/2024 Employment Answer Date Recorded Stress 0 11/21/2021 Sex and Gender Information Value Date Recorded Sex Assigned at Male 12/07/2017 10:09 AM PDT Legal Sex Male 6:41 AM PDT Gender Identity Male 12/07/2017 10:09 AM PDT Sexual Orientation Straight 12/07/2017 10 :09 AM PDT COVID-19 Exposure Response Date Recorded In the last 10 days, have evens u been in contact with someone who was confirmed or suspected to have Coronavirus/COVID-19? No / Unsure 09/16/2024 11:14 AM EST documented as of this encounter Last Filed Vital Signs Vital Sign Reading Time Taken Comments Blood Pressure 120/82 09/16/2024 11:49 AM EST Pulse 79 09/16/2024 11:49 AM EST Temperature 36.4 ??C (97.5 ??F) 09/16/2024 1 1:49 AM EST Respiratory Rate 18 09/16/2024 11:4 9 AM EST Oxygen Saturation 97% 09/16/2024 11: 49 AM EST Inhaled Oxygen Concentration - - Weight 103.7 kg (228 lb 9.6 oz) 025 11:49 AM EST Height 182.9 cm (6') 09/16/2024 11:49 AM EST Body Mass Index 31 09/16/2024 11:49 AM EST documented in this encounter Progress Notes * Altheabella Wilson - 09/16/2024 11:45 AM EST Subjective: CC: Follow Up (DM ,HTN follow up . No concern ) Finance Assistant: Natiivdad HPI: Manjinder Moreno is a 49 year old male patient who presents today for evaluation of pre-dm, HLD, HTN. Pt informed we will check labs today. Due for shingles vaccine will get. Pt trying to schedule with ENT that [facility] mentioned but they believe they need a referral still. Will look at the shelby calles note. Pt needs referral to ENT. Last 3 BP Readings: Date: BP: 09/16/2024 120/82 06/05/2024 122/90 05/30/2024 113/72 Lab Results Component Value Date TRIGLYC 92 05/02/2024 CHOL 158 05/02/2024 HDL 39 (L) 05/02/2024 LDL 100 (H) 05/02/2024 CHOLHDL 4.1 05/02/2024 NONHDL 119 05/02/2024 Lab Results Component Value Date HGBA1C 5.8 (H) 05/02/2024 HGBA1C 5.7 (H) 01/10/2024 HGBA1C 5.6 12/29/2022 HM: Covid: Allergies Allergen Reactions Penicillins Patient Active Problem List Diagnosis Hypothyroidism Gastroesophageal reflux disease without esophagitis Environmental allergies History of total thyroidectomy Prediabetes Hyperlipidemia Panic attacks Anxiety Hx of sprain of ankle Essential hypertension Anxiety and depression Plantar fasciitis, bilateral Trochanteric bursitis of left hip Arthritis of left hip Current Outpatient Medications: ALLERGY RELIEF, CETIRIZINE, 10 mg tablet, Take 1 tablet by mouth once daily, Disp: 90 Tablet, Rfl: 0 chlorthalidone (HYGROTEN) 25 mg tablet, Take 1 Tablet by mouth once daily, Disp: 90 Tablet, Rfl: 1 omeprazole (PRILOSEC) [address] capsule, TAKE 1 CAPSULE BY MOUTH ONCE DAILY IN THE MORNING BEFORE BREAKFAST, Disp: 90 Capsule, Rfl: 1 tadalafiL (CIALIS) 20 mg tablet, Take 1 Tablet by mouth once daily as needed for erectile dysfunction, Disp: 10 Tablet, Rfl: 2 levothyroxine 150 mcg tablet, Take 1 Tablet by mouth every morning before breakfast, Disp: 90 Tablet, Rfl: 1 atorvastatin (LIPITOR) 10 mg tablet, Take 1 Tablet by mouth nightly at bedtime, Disp: 90 Tablet, Rfl: 1 escitalopram (LEXAPRO) 20 mg tablet, Take 1 Tablet by mouth once daily, Disp: 90 Tablet, Rfl: 1 mineral oil-hydrophil petrolat (AQUAPHOR) ointment, Apply topically 2 (two) times daily, Disp: 452 g, Rfl: 2 hydrOXYzine HCL (ATARAX) 50 mg tablet, Take 1 Tablet by mouth 3 (three) times daily as needed for anxiety, Disp: 90 Tablet, Rfl: 1 Review of Systems Remainder ROS: See HPI, systems reviewed and are otherwise negative or noncontributory. Objective: Vitals: 09/16/24 1149 BP: 120/82 Pulse: 79 Resp: 18 Temp: 97.5 ??F (36.4 ??C) TempSrc: Oral SpO2: 97% Weight: 228 lb 9.6 oz (103.7 kg) Height: 6' (1.829 m) Body mass index is 31 kg/m??. Physical Exam Constitutional: Appearance: Normal appearance. Cardiovascular: Rate and Rhythm: Normal rate and regular rhythm. Pulmonary: Effort: Pulmonary effort is normal. Breath sounds: Normal breath sounds. Neurological: Mental Status: He is alert and oriented to person, place, and time. Mental status is at baseline. 09/16/2024 11:49 AM Little interest or pleasure in doing things Not at all Feeling down, depressed or hopeless [include irritable if under 18] Not at all Trouble falling or staying asleep, or sleeping too much Not at all Feeling tired or having little energy Not at all Poor appetite or overeating Not at all Feeling bad about yourself - or that you are a failure or have let yourself or your family down Notat all Trouble concentrating on things like school work, reading or watching TV? Not at all Moving or speaking so slowly that other people could have noticed? Or the opposite - being so fidgety or restless that you have been moving around a lot more than usual Not at all Thoughts you would be better off or of hurting yourself in some way Not at all If you checked off any problems, how difficult have these problems made it for you to do your work,take care of things at home, or get along with other people? Not difficult at all PHQ-9 Total Score (Auto Calculated) 0 Depression Severity: None-minimal Assessment and Plan: Manjinder Moreno is a 49 year old male patient who was seen today for evaluation of pre-DM, HLD, and HTN. Labs ordered to follow up. Pt will schedule follow up. Last [facility] note does not mention ENT at all. Pt was advised to contact them and get clarification. Shingles vaccine administered.Advised to call with any questions or concerns. R73.03 Prediabetes (primary encounter diagnosis) Plan : BLOOD COUNT COMPLETE AUTO&AUTO DIFRNTL WBC COMPREHENSIVE METABOLIC PANEL HEMOGLOBIN GLYCOSYLATED A1C LIPID PANEL E78.2 Mixed hyperlipidemia Plan : BLOOD COUNT COMPLETE AUTO&AUTO DIFRNTL WBC COMPREHENSIVE METABOLIC PANEL LIPID PANEL Z23 Immunization due Plan : HZV ZOSTER VACC RECOMBINANT ADJUVANTED IM USE Return in about 4 months (around 01/14/2025) for f/u pre-DM, hld . * Rose Mary Barnes PA-C - 09/16/2024 11:44 AM EST Reviewed note and plan with student TIFFANY Ames, agree. documented in this encounter Miscellaneous Notes * Patient Instructions - Althea Wilson - 09/16/2024 11:56 AM EST If you are not able to keep your appointment please call 24-48 hours before your appointment to cancel or reschedule. documented in this encounter Plan of Treatment Upcoming Encounters Date Type Department Care Team (Late st Contact Info) Description 10/24/2024 9:00 AM EST Office Visit [facility] [address] [place] [phone] Luiza Garza [address] [place] [address] Scheduled Orders Name Type Priority Associated Diagnoses Orde r Schedule BLOOD COUNT COMPLETE AUTO&AUTO DIFRNTL WBC Lab Routine Prediabetes Mixed hyperlipidemia Ordered: 09/16/2024 COMPREHENSIVE METABOLIC PANEL Lab Routine Prediabetes Mixed hyperlipidemia Ordered: 09/16/2024 HEMOGLOBIN GLYCOSYLATED A1C Lab Routine Prediabetes Ordered: 09/16/2024 LIPID PANEL Lab Routine Prediabetes Mixed hyperlipidemia Ordered: 09/16/2024 documented as of this encounter Visit Diagnoses Diagnosis Prediabetes- Primary Other abnormal glucose Mixed hyperlipidemia Immunization due Need for prophylactic vaccination and inoculation against unspecified single disease documented in this encounter Additional Health Concerns Assessment Noted Time PHQ-9 Depression Total Score: 0 09/16/19 25 11:49 AM PST documented as of this encounter Care Teams Gis Developer Relationship Specialty Start Date End Date Rose Mary Barnes PA-C [facility] [place] [address] PCP - General FAMILY MEDICINE, EAN 08/10/21 documented as of this encounter
--- OUTSIDE RECORDS SUMMARY | 2024-10-15 15:07 | XMS_ITS | Clinical Summary ---
Author Organization [address] [place] [address] Address [address] [place] [address] Phone Care Team Providers Care Solar Photovoltaic Designer Name Role Phone Rose Mary Barnes Primary Care Provider [phone] Encounters Date Type Department Care Team Description 07/29/2024 2:44 PM EST - 07/29/2024 11:59 PM EST Hospital Encounter [facility] [address] [place] [phone] Anesthesia of skin; Paresthesia of skin Discharge Disposition: Home or Self Care from Last 3 Months Immunizations Name Administration Dates Next Due Moderna SARS-CoV-2 COVID-19, mRNA, LNP-S, preservative free 09/17/2021,01/20/2021,12/25/2020 Surgical History Surgery Date Site/Laterality Comments OTHER SURGICAL HISTORY 02/22/2021 N/A PROCEDURE: MS RPR UMBILICAL HRNA 5 YRS/> REDUCIBLE; COMMENT: open umbilical hernia repair with mesh - Dr. Star Bean [facility] Social History Tobacco Use Types Packs/Day Years Used Date Smoking Tobacco: Never Smokeless Tobacco: Never Alcohol Use Standard Drinks/Week Comments Never 0 (1 standard drink = 0.6 oz pur e alcohol) Sex and Gender Information Value Date Recorded Sex Assigned at Not on file Legal Sex Male 10:26 AM EST Gender Identity Not on file Sexual Orientation Not on file Obstetrics History Plan of Treatment Health Maintenance Due Date Last Done Comments Colorectal Cancer Screening: Colonoscopy 08/01/2022 HIV Screening 08/01/2022 Social Influencers of Health Screening 08/01/2022 COVID-19 Vaccine () 05/04/2024 01/09/2024, 11/10/2022, 09/17/2021, Additional history exists Zoster Vaccines (2 of 2) 06/05/2024 04/10/2024 Hypertension/CHF/CAD Annual BMP Blood Test 05/02/2025 05/02/2024 Depression Screening 06/05/2025 06/05/2024 DTaP,Tdap,and Td Vaccines (2 - Td or Tdap) 10/17/2028 10/17/2018 Cholesterol Screening (Lipid Panel) 05/02/2029 05/02/2024, 05/02/2024, 01/10/2024, Additional history exists Hepatitis C Screening Completed 12/15/2020 Hepatitis A Vaccines Aged Out 06/15/2023, 12/08/2022, 11/10/2022 No longer eligible based on patient's age to complete this topic Hepatitis B Vaccines Completed 06/15/2023, 12/08/2022, 11/10/2022 Influenza Vaccine Completed 06/05/2024, , 09/17/2021, Additional history exists HIB Vaccines Aged Out No longer eligi ble based on patient's age to complete this topic HPV Vaccines Aged Out No longer eligi ble based on patient's age to complete this topic IPV Vaccines Aged Out No longer eligi ble based on patient's age to complete this topic MMR Vaccines Aged Out No longer eligi ble based on patient's age to complete this topic Meningococcal ACWY Vaccine Aged Out N o longer eligible based on patient's age to complete this topic Pneumococcal Vaccine: Pediatrics (0 to 5 Years) and At-Risk Patients (6 to 64 Years) Aged Out No longer eligible based on patient's age to complete this topic RSV Immunization Patients Under 20 months Aged Out No longer eligible based on patient's age to complete this topic Varicella Vaccines Aged Out No longer eligible based on patient's age to complete this topic Procedures Procedure Name Priority Date/Time Associated Diagnosis Comments EMG 2 LIMBS Routine 07/29/2024 3:02 PM EST Anesthesia of skin Paresthesia of skin from Last 3 Months Results * EMG two limbs (07/29/2024 3:02 PM EST) Narrative Ghulam Berg MD - 07/29/2024 3:27 PM EST Please see the attached report . Rose Mary MCKOY NEUROLOGY ORDERABLES Final Res ult from Last 3 Months Insurance MEDICAID - [place] Care Teams Solar Photovoltaic Designer Relationship Specialty Start Date End Date Rose Mary Barnes PA [facility] [place] [address] PCP - General 07/29/24
--- OUTSIDE RECORDS SUMMARY | 2024-10-15 15:07 | XMS_ITS | Encounter Summary ---
Author Organization [facility] Address [address] [place] [address] Care Team Providers Care Retort Or Condenser Press Operator Name Role Phone Rose Mary Barnes PA-C Primary Care Provider [phone] Encounter Details Date Type Department Care Team (Latest Contact Info) Description 09/16/2024 Travel Social History Tobacco Use Types Packs/Day Years Used Date Smoking Tobacco: Never Smokeless Tobacco: Never Alcohol Use Standard Drinks/Week Comments No 0 [...] Recorded In the last 10 days, have yo u been in contact with someone who was confirmed or suspected to have Coronavirus/COVID-19? No / Unsure 09/16/2024 11:14 AM EST documented as of this encounter Plan of Treatment Upcoming Encounters Date Type Department Care Team ([facility] Contact Info) Description 10/24/2024 9:00 AM EST Office Visit [facility] [address] [place] [address] Luiza Garza [address] [place] [address] documented as of this encounter Visit Diagnoses Not on filedocumented in this encounter Additional Health Concerns Assessment Noted Time PHQ-9 Depression Total Score: 0 09/16/19 25 11:49 AM PST documented as of this encounter Care Teams Retort Or Condenser Press Operator Relationship Specialty Start Date End Date Rose Mary Barnes PA-C [address] [place] [address] PCP - General FAMILY MEDICINEEAN 08/10/21 documented as of this encounter
--- OUTSIDE RECORDS SUMMARY | 2024-10-15 15:07 | XMS_ITS | Clinical Summary ---
Author Organization [facility] Address [address] [place] [address] Care Team Providers Care Vp Strategic Planning Name Role Phone Rose Mary Barnes PA-C Primary Care Provider Source Comments PLEASE NOTE, if this patient is a minor, it may be UNLAWFUL to discuss sensitive information that is contained in these records (such as FAMILY PLANNING, MENTAL HEALTH or SUBSTANCE ABUSE) with the minor patient's parent or other person without the patient's specific authorization.[facility] Allergies Active Allergy Reactions Criticality Noted Date Comments Penicillins 12/07/2017 Medications hydrOXYzine HCL (ATARAX) 50 mg tabletIndication s:Anxiety Take 1 Tablet by mouth 3 (three) times daily as needed for anxiety 90 Tablet 1 4 Active mineral oil-hydrophil petrolat (AQUAPHOR) ointmentIndicati ons:Dry skin dermatitis Apply topically 2 (two) times daily 452 g 2 4 Active escitalopram (LEXAPRO) 20 mg tabletIndication s:Anxiety with depression Take 1 Tablet by mouth once daily 90 Tablet 1 4 Active atorvastatin (LIPITOR) 10 mg tabletIndication s:Prediabetes,Mi xed hyperlipidemia,E ssential hypertension Take 1 Tablet by mouth nightly at bedtime 90 Tablet 1 4 Active levothyroxine 150 mcg tabletIndication s:Hypothyroidism , unspecified type Take 1 Tablet by mouth every morning before breakfast 90 Tablet 1 4 Active tadalafiL (CIALIS) 20 mg tabletIndication s:Other male erectile dysfunction Take 1 Tablet by mouth once daily as needed for erectile dysfunction 10 Tablet 2 4 Active omeprazole (PRILOSEC) [address] capsuleIndicatio ns:Gastroesophag eal reflux disease without esophagitis TAKE 1 CAPSULE BY MOUTH ONCE DAILY IN THE MORNING BEFORE BREAKFAST 90 Capsule 1 4 Active chlorthalidone (HYGROTEN) 25 mg tabletIndication s:Essential hypertension Take 1 Tablet by mouth once daily 90 Tablet 1 4 Active ALLERGY RELIEF, CETIRIZINE, 10 mg tabletIndication s:Environmental allergies Take 1 tablet by mouth once daily 90 Tablet 4 Active Active Problems Problem Noted Date Diagnosed Date Trochanteric bursitis of left hip 06/13/2023 Arthritis of left hip 06/13/2023 Plantar fasciitis, bilateral 04/06/2022 Anxiety and depression 11/23/2021 Essential hypertension 12/23/2020 Hx of sprain of ankle 10/17/2019 Panic attacks 10/17/2018 Anxiety 10/17/2018 Prediabetes 01/07/2018 Hyperlipidemia 01/07/2018 Hypothyroidism 12/07/2017 Gastroesophageal reflux disease without esophagi tis 12/07/2017 Environmental allergies 12/07/2017 History of total thyroidectomy 12/07/2017 Overview (12/27/2017): 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 Whole body radioiodine scan (post high dose ablative therapy) Impression: Scintigraphic evidence of two areas of intense focal uptake in the anterior cervical region compatible with functional thyroid tissue remnants int he anterior neck region(an expected finding after high dose therapy). Due to its intensity, if clinically indicated correlate this finding with a neck ultrasound. No evidence of metastatic disease. Resolved Problems Problem Noted Date Diagnosed Date Resolved Date Homelessness 10/24/2018 01/18/2021 Papillary microcarcinoma of thyroid (HCC-CMS) 12/08/19 18 01/18/2021 Encounters Date Type Department Care Team Description 09/16/2024 11:20 AM EST Office Visit [facility] [place] [address] [place] [phone] Rose Mary Barnes PA-C Prediabetes (Primary Dx); Mixed hyperlipidemia; Immunization due 09/16/2024 Travel from Last 3 Months Immunizations Name Administration Dates Next Due Flu, Preservative Free 09/17/2021,06/04/2020, HEP A-HEP B 06/15/2023,12/08/2022,11/10/2022 INFLUENZA, SEASONAL, INJECTABLE 08/29/2023,09/17 Influenza (FLUBLOK),recombinant,injectable,preservati ve Free 06/05/2024 MODERNA COVID-19 VACCINE BIV ALENT, BLUE CAP, 6M+ 11/10/2022 Moderna COVID-19 (Spikevax), Mrna, Lnp-s, Pf, 50 Mcg/0.5 Ml, 12yr+ 01/09/2024 Moderna COVID-19 Vaccine, re d cap blue label, 12+ Primary Series 09/17/2021,01/20/2021,12/25/2020 TDAP 10/17/2018 ZOSTER VACCINE, RECOMBINANT (SHINGRIX) ,04/10/2024 Social History Tobacco Use Types Packs/Day Years [...] No / Unsure 09/16/2024 11:14 AM EST Last Filed Vital Signs Vital Sign Reading [...] Mass Index 31 09/16/2024 11:49 AM EST Plan of Treatment Upcoming Encounters Date Type Department Care Team (Late st Contact Info) Description 10/24/2024 9:00 AM EST Office Visit [facility] [address] [place] [phone] Luiza Garza [address] [place] [address] Health Maintenance Due Date Last Done Comments CT Colonography 2019 FIT/gFOBT 2019 Fecal DNA 2019 Flexible Sigmoidoscopy 2019 Depression Monitoring 12/15/2024 09/16/2024 , 06/05/2024, 04/10/2024, Additional history exists [id number] ( season) 2024 01/09/2024, 11/10/2022, 09/17/2021, Additional history exists Postponed from 05/04/2024 (Patient postponement) HIV Screening 01/09/2025 01/10/2024, 12/03, 11/01/2022, Additional history exists Syphilis Screening 01/09/2025 01/10/2024, 0 12/29/2022, 11/01/2022 Annual Preventive Care Visit 04/10/2025 04/10/2024, 10/25/2022, 01/18/2021, Additional history exists Tobacco Screening 04/10/2025 04/10/2024 Dental BW 04/12/2025 04/10/2024, 02/0 04/2024, 01/09/2023, Additional history exists Dental Examination 04/12/2025 04/10/2024, 0 10/11/2023, 01/09/2023, Additional history exists Dental Perio Charting 04/12/2025 04/10/2024 , 01/09/2023, 02/14/2022 Dental Prophy 04/12/2025 04/10/2024, 02/0 04/2024, 01/09/2023, Additional history exists Diabetes Screening 05/02/2025 05/02/2024, 0 05/02/2024, 01/10/2024, Additional history exists Lipid Screening 05/02/2025 05/02/2024, 050 05/2024, 12/29/2022, Additional history exists Imm-DTaP/Tdap/Td (2 - Td or Tdap) 10/17/2028 10/17/2018 Dental FMX/Pano 07/13/2029 07/11/2024, 01/09/2023 Colonoscopy 04/19/2032 04/19/2022 Colorectal Cancer Screening 04/19/2032 Hepatitis C Screening Completed 12/15/2020 Imm-Hepatitis A Completed 06/15/2023, 04/0 03/2023, 11/10/2022 Imm-Hepatitis B Completed 06/15/2023, 04/0 03/2023, 11/10/2022 Imm-Influenza Completed 06/05/2024, 08/04, 09/17/2021, Additional history exists Alcohol and Drug Screen Completed 09/16/19, 06/05/2024, 04/10/2024, Additional history exists Imm-Zoster, Recombinant Completed 09/16/2024, 04/10 Procedures Procedure Name Priority Date/Time Associated Diagnosis Comments THYROID PANEL WITH TSH Routine 08/11/2024 9:14 AM EST HEALTH HISTORY SCANNED DOCUMENT 07/29/2024 3:00 AM EST PROCEDURE SCANNED DOCUMENT 07/29/2024 3:00 AM EST REFERRAL SCANNED DOCUMENT 07/18/2024 3:00 AM EST IMAGING SCANNED DOCUMENT 07/18/2024 3:00 AM EST REFERRAL SCANNED DOCUMENT 07/16/2024 3:00 AM EST PANORAMIC RADIOGRAPHIC IMAGE Routine 07/11/2024 2:00 PM EST Impacted third molar tooth COMPREHENSIVE METABOLIC PANEL Routine 05/02/2024 8:39 AM EDT Essential hypertension Prediabetes LIPID PANEL Routine 05/02/2024 8:39 AM EDT Mixed hyperlipidemia COMP PERIODONTAL EVALUATION - NEW/EST PATIENT Routine 04/10/2024 3:40 PM EDT Encounter for dental examination BITEWINGS - FOUR RADIOGRAPHIC IMAGES Routine 04/10/2024 3:40 PM EDT Encounter for dental examination PROPHYLAXIS - ADULT Routine 04/10/2024 3 :40 PM EDT Encounter for dental examination PERIODIC ORAL EVALUATION ESTABLISHED PATIENT Routine 04/10/2024 3:40 PM EDT Encounter for dental examination HIV 1/2 AG & AB W/RFLX (4TH GEN) Routine 01/10/2024 9:15 AM EDT Routine screening for STI (sexually transmitted infection) RPR (DIAGNOSIS) WITH REFLEX TO TITER AND CONFIRMATORY TESTING Routine 01/10/2024 9:15 AM EDT Routine screening for STI (sexually transmitted infection) REFERRAL FOR COLONOSCOPY Routine 04/19/2022 3:00 AM EDT Colon cancer screening HEPATITIS C AB W/RFLX HCV RNA, QT, RT PCR Routine 12/15/2020 9:14 AM EDT Screening for viral disease from Last 3 Months or Most Recently Relevant to Health Maintenance Results * THYROID PANEL WITH TSH (08/11/2024 9:14 AM EST) TSH 3.60 0.40 - 4.50 mIU/L [employer] [facility] T-3 UPTAKE 26 22 - 35 % [facility] [employer] [facility] T-4 (THYROXINE), TOTAL 9.3 4.9 - 10.5 mcg/dL [employer] [facility] FREE T4 INDEX (T7) 2.4 1.4 - 3.8 [facility] [employer] [facility] 08/11/2024 9:14 AM EST 08/11/2024 9:14 AM EST Rosimar Barnes PA-C LAB - BLOOD DRAW Final Resul t [facility] [employer] [address] [address], [employer] [address] [phone] * HEALTH HISTORY SCANNED DOCUMENT (07/29/2024 3:00 AM EST) 07/29/2024 3:00 AM EST [facility] Provider Default SCAN OTHER ORDERS Final Re sult * PROCEDURE SCANNED DOCUMENT (07/29/2024 3:00 AM EST) 07/29/2024 3:00 AM EST Rosimar Barnes PA-C SCAN PROCEDURES Final Result * REFERRAL SCANNED DOCUMENT (07/18/2024 3:00 AM EST) Only the most recent of2 resultswithin the time period is included. 07/18/2024 3:00 AM EST Rosimar Barnes PA-C SCAN REFERRAL Final Result * IMAGING SCANNED DOCUMENT (07/18/2024 3:00 AM EST) 07/18/2024 3:00 AM EST us Rosimar Barnes PA-C SCAN IMAGING Final Result * (ABNORMAL) LIPID PANEL (05/02/2024 8:39 AM EDT) CHOLESTEROL, TOTAL 158 <200 mg/dL [employer] [facility] HDL CHOLESTEROL 39(L) > OR = 40 mg/dL [facility] TRIGLYCERIDES 92 <150 mg/dL [facility] LDL-CHOLESTEROL 100(H) 99 mg/dL (calc) [facility] Comment: Reference range: <100 Desirable range <100 mg/dL for primary prevention; ?? <70 mg/dL for patients with CHD or diabetic patients with > or = 2 CHD risk factors. LDL-C is now calculated using the Edwina calculation, which is a validated novel method providing better accuracy than the Friedewald equation in the estimation of LDL-C. Hector SS et al. RAAD. 2013;310(19): 6653-9255 (http://education.Unata/faq/GID544) CHOL/HDLC RATIO 4.1 <5.0 (calc) [facility] NON-HDL CHOLESTEROL 119 <130 mg/dL (calc) [facility] Comment: For patients with diabetes plus 1 major ASCVD risk factor, treating to a non-HDL-C goal of <100 mg/dL (LDL-C of <70 mg/dL) is considered a therapeutic option. Blood Blood / Unknown 05/02/2024 8 :39 AM EDT 05/02/2024 8:40 AM EDT Narrative [employer] - 05/03/2024 7:21 AM EDT FASTING:YES us Rose Mary Barnes PA-C LAB - BLOOD DRAW Final Resul t [employer] [address] [place] [address], [facility] [address] [place] [phone] * (ABNORMAL) COMPREHENSIVE METABOLIC PANEL (05/02/2024 8:39 AM EDT) GLUCOSE 85 65 - 99 mg/dL [facility] Comment: ?Fasting reference interval UREA NITROGEN (BUN) 23 7 - 25 mg/dL [facility] CREATININE (blood) 0.74 0.70 - 1.30 mg/dL [facility] EGFR 110 > OR = 60 mL/min/1. 73m2 [facility] BUN/CREATININE RATIO SEE NOTE: [facility] Comment: ?? Not Reported: BUN and Creatinine are within ?? reference range. ? SODIUM 137 135 - 146 mmol/L [employer] [facility] POTASSIUM 3.7 3.5 - 5.3 mmol/L [employer] [place] [employer] CHLORIDE 98 98 - 110 mmol/L [employer] [facility] CARBON DIOXIDE 32 20 - 32 mmol/L [employer] [facility] CALCIUM 9.4 8.6 - 10.3 mg/dL [employer] [facility] PROTEIN, TOTAL 7.5 6.1 - 8.1 g/dL [employer] [facility] ALBUMIN 4.1 3.6 - 5.1 g/dL [employer] [place] [employer] GLOBULIN 3.4 1.9 - 3.7 g/dL (calc) [employer] [facility] ALBUMIN/GLOBULI N RATIO 1.2 1.0 - 2.5 (calc) [employer] [facility] BILIRUBIN, TOTAL 1.2 0.2 - 1.2 mg/dL [employer] [facility] ALKALINE PHOSPHATASE 62 35 - 144 U/L [employer] [facility] AST 33 10 - 35 U/L [employer] [facility] ALT 47(H) 9 - 46 U/L [employer] [facility] Blood Blood / Unknown 05/02/2024 8 :39 AM EDT 05/02/2024 8:40 AM EDT Narrative [facility] - 05/03/2024 7:21 AM EDT FASTING:YES Rose Mary Barnes PA-C LAB - BLOOD DRAW Edited Resu lt - Final [employer] [address] [address], [employer] [address] [phone] * RPR (DIAGNOSIS) WITH REFLEX TO TITER AND CONFIRMATORY TESTING (01/10/2024 9:15 AM EDT) RPR (DX) W/REFL TITER AND CONFIRMATORY TESTING NON-REACT LYNDON NON-REACT LYNDON [employer] [facility] Comment: No laboratory evidence of syphilis. If recent exposure is suspected, submit a new sample in 2-4 weeks. Serum Blood / Unknown 01/10/2024 9 :15 AM EDT 01/10/2024 9:16 AM EDT Narrative [facility] - 01/11/2024 9:55 AM EDT SPLIT 01/09/2024 FROM [id number] FASTING:YES us Rose Mary Barnes PA-C LAB - BLOOD DRAW Final Resul t Performing Organization Address [facility]/ZIP Co de Phone Number [employer] [address] [address], [employer] [address] [phone] * HIV 1/2 AG & AB W/RFLX (4TH GEN) (01/10/2024 9:15 AM EDT) HIV AG/AB, 4TH GEN NON-REAC TIVE NON-REAC TIVE [employer] [facility] Comment: HIV-1 antigen and HIV-1/HIV-2 antibodies were not detected. There is no laboratory evidence of HIV infection. PLEASE NOTE: This information has been disclosed to you from records whose confidentiality may be protected by state law. ??If your state requires such protection, then the state law prohibits you from making any further disclosure of the information without the specific written consent of the person to whom it pertains, or as otherwise permitted by law. A general authorization for the release of medical or other information is NOT sufficient for this purpose. ?? For additional information please refer to http://education.[employer]i-Logic/faq/SCM563 (This link is being provided for informational/ educational purposes only.) The performance of this assay has not been clinically validated in patients less than 2 years old. Blood Blood / Unknown 01/10/2024 9 :15 AM EDT 01/10/2024 9:16 AM EDT Narrative [facility] - 01/11/2024 9:55 AM EDT SPLIT 01/09/2024 FROM [id number] FASTING:YES us Rose Mary Barnes PA-C LAB - BLOOD DRAW Final Resul t Performing Organization Address [facility] Co de Phone Number [employer] [address] [address], [employer] [address] [phone] * REFERRAL FOR COLONOSCOPY (04/19/2022 3:00 AM EDT) 04/19/2022 3:00 AM EDT Rose Mary Barnes PA-C REFERRAL Edited Resul t - Final * HEPATITIS C AB W/RFLX HCV RNA, QT, RT PCR (12/15/2020 9:14 AM EDT) HEPATITIS C ANTIBODY NON-REACT LYNDON NON-REACT LYNDON [facility] SIGNAL TO CUT-OFF 0.28 <1.00 [facility] Comment: HCV antibody was non-reactive. There is no laboratory evidence of HCV infection. In most cases, no further action is required. However, if recent HCV exposure is suspected, a test for HCV RNA (test code 97233) is suggested. For additional information please refer to http://education.[employer]i-Logic/faq/YAB67b1 (This link is being provided for informational/ educational purposes only.) Blood Blood / Unknown 12/15/2020 9 :14 AM EDT 12/15/2020 9:15 AM EDT Rosy [facility]ي [facility] LAB - BLOOD DRAW Final Result [employer] [address] [address], [employer] [address] [address] from Last 3 Months or Most Recently Relevant to Health Maintenance Insurance [employer] [place] Care Teams Vp Strategic Planning Relationship Specialty Start Date End Date Rose Mary Barnes PA-C [address] [place] [address] PCP - General [facility]ILY MEDICINEEAN 08/10/21
== END 2024-10-15 14:35 | disposition home or self-care (01) ==
PROVIDERS: PCP Internal Medicine Hematology & Oncology; Visit Provider Physician Assistant
DX: M70.62 Trochanteric bursitis, left hip (principal); M23.92 Unspecified internal derangement of left knee
CPT/HCPCS: 20610; 99213

== ENCOUNTER → 2024-10-15 13:42 | Outpatient (BNVA) | payer MEDICAID, SELFPAY | PROVIDERS: PCP Internal Medicine Hematology & Oncology; Visit Provider Physician Assistant | DX: M70.62 Trochanteric bursitis, left hip (principal); M23.92 Unspecified internal derangement of left knee | CPT/HCPCS: 20610; 99212; J1010; J2003 ==

== ENCOUNTER 2024-10-21 13:17 | Outpatient (AMB) | payer MEDICAID, SELFPAY ==
--- NOTE | 2024-10-21 13:42 | MHC.OFFVIS ---
Intake Visit Reasons: PO RT CTR 10/06/24 AR Intake Note: Manjinder is a 49 year old right hand dominant male presents today for a post operative visit s/p right carpal tunnel release w/ Dr Cortez DOS: 10/06/2024. Patient reports he is doing well, states having 2 episodes of numbness and tingling. Allergies Penicillins Allergy (Verified 10/21/24 13:43) Unknown HPI HPI PO RT CTR 10/06/24 AR: Details: Manjinder is a 49 year old right hand dominant male presents today for a post operative visit s/p right carpal tunnel release w/ Dr Cortez DOS: 10/06/2024. Patient reports he is doing well, states having 2 episodes of numbness and tingling. [facility] Medical History (Updated 10/15/24 @ 14:34 by Krupa Taveras PA-C) Anxiety Depression GERD (gastroesophageal reflux disease) Hypercholesteremia Hypothyroid Surgical History History of surgery on lower extremity Hx of thyroidectomy Social History Are you a primary career technical education instructor to a significant other at home: No Do you presently have visiting nurse or other home services: No Patient Tobacco Use Status: Never used Tobacco Current occupational status: unemployed Current occupation: right hand dominant Review of Systems Const All systems reviewed & are unremarkable except as noted in HPI and below Physical Exam Extrem Other: Patient is alert, oriented, and in no acute distress. Neuro: Normal sensation of the tips of all digits of the right hand at this time Vascular: Cap refill brisk Pain: No pain with palpation around the incision site No pain with range of motion ROM: Patient is able to flex and extend all digits of the right hand fully and without difficulty Skin: Well approximated and well healing incision site noted on the volar right wrist General: No ecchymosis, erythema, or evidence of infection. Psych: Appears grossly normal Affect normal Attitude cooperative Assessment & Plan Assessment & Plan (1) Carpal tunnel syndrome, bilateral: Code(s): G56.03 - Carpal tunnel syndrome, bilateral upper limbs Category: Medical Plan 1. Carpal tunnel syndrome, right Status post carpal tunnel release DOS 10/06/2024 Patient appears to be recovering well postoperatively Patient is educated about the typical recovery course At this time, patient was informed that does not require any acute follow-up for his right carpal tunnel release, as he appears to be recovering very well Patient was amenable to this plan 2. Carpal tunnel syndrome, left Intermittent, not daily, worse at night Patient states he would like to hold off on any operative intervention at this time Patient is educated on the risks of prolonging treatment for carpal tunnel, particularly if he waits past the dense numbness threshold Patient understands these risks Patient will follow-up as needed with any acute concerns Coding Level of Care Code Global (67979) Diagnoses Carpal tunnel syndrome, bilateral G56.03
--- OUTSIDE RECORDS SUMMARY | 2024-10-21 14:13 | XMS_ITS | Clinical Summary ---
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 Whole body radioiodine scan (post [...] Description 09/16/2024 11:20 AM EST [facility] [place] [address] [place] [address] Rose Mary Barnes PA-C Prediabetes (Primary Dx); [...] Orientation Straight 12/07/2017 10 :09 AM PDT Last Filed Vital Signs Vital Sign Reading [...] Description 10/24/2024 9:00 AM EST Office Visit [facility] [address] [place] [phone] [address] [place] [address] Health Maintenance Due Date Last Done Comments CT Colonography 2019 FIT/gFOBT 2019 Fecal DNA 2019 Flexible Sigmoidoscopy 2019 Depression Monitoring 12/15/2024 09/16/2024 , 06/05/2024, 04/10/2024, Additional history exists Cek-[id number] ( season) 2024 01/09/2024, 11/10/2022, 09/17/2021, Additional history exists Postponed from 05/04/2024 (Patient postponement) HIV Screening 01/09/2025 01/10/2024, 12/03, 11/01/2022, Additional history exists Syphilis Screening 01/09/2025 01/10/2024, 0 12/29/2022, 11/01/2022 Annual Preventive Care Visit 04/10/2025 04/10/2024, 10/25/2022, 01/18/2021, Additional history exists Tobacco Screening 04/10/2025 04/10/2024 Dental BW 04/12/2025 04/10/2024, 02/04/2024, 01/09/2023, Additional history exists Dental Examination 04/12/2025 04/10/2024, 0 10/11/2023, 01/09/2023, Additional history exists Dental Perio Charting 04/12/2025 04/10/2024 , 01/09/2023, 02/14/2022 Dental Prophy 04/12/2025 04/10/2024, 0204/2024, 01/09/2023, Additional history exists Diabetes Screening 10/15/2025 10/15/2024, 0 10/15/2024, 05/02/2024, Additional history exists Lipid Screening 10/15/2025 10/15/2024, 04/05, 01/10/2024, Additional history exists Imm-DTaP/Tdap/Td (2 - Td [...] Procedure Name Priority Date/Time Associated Diagnosis Comments LIPID PANEL Routine 10/15/2024 8:38 AM EST Prediabetes Mixed hyperlipidemia HEMOGLOBIN GLYCOSYLATED A1C Routine 10/15/2024 8:38 AM EST Prediabetes COMPREHENSIVE METABOLIC PANEL Routine 10/15/2024 8:38 AM EST Prediabetes Mixed hyperlipidemia BLOOD COUNT COMPLETE AUTO&AUTO DIFRNTL WBC Routine 10/15/2024 8:38 AM EST Prediabetes Mixed hyperlipidemia THYROID PANEL WITH TSH Routine 08/11/2024 9:14 AM EST HEALTH HISTORY SCANNED DOCUMENT 07/29/2024 3:00 AM EST PROCEDURE SCANNED DOCUMENT 07/29/2024 3:00 AM EST PANORAMIC RADIOGRAPHIC IMAGE Routine 07/11/2024 2:00 PM EST Impacted third molar tooth COMP PERIODONTAL EVALUATION - NEW/EST PATIENT Routine [...] Recently Relevant to Health Maintenance Results * BLOOD COUNT COMPLETE AUTO&AUTO DIFRNTL WBC (10/15/2024 8:38 AM EST) WHITE BLOOD CELL COUNT 8.9 3.8 - 10.8 Thousand/ uL [facility] RED BLOOD CELL COUNT 5.06 4.20 - 5.80 Million/u L [facility] HEMOGLOBIN 15.3 13.2 - 17.1 g/dL [facility] HEMATOCRIT 45.8 38.5 - 50.0 % [facility] MCV 90.5 80.0 - 100.0 fL [facility] MCH 30.2 27.0 - 33.0 pg [facility] MCHC 33.4 32.0 - 36.0 g/dL [facility] Comment: For adults, a slight decrease in the calculated MCHC value (in the range of 30 to 32 g/dL) is most likely not clinically significant; however, it should be interpreted with caution in correlation with other red cell parameters and the patient's clinical condition. RDW 13.8 11.0 - 15.0 % [facility] PLATELET COUNT 287 140 - 400 Thousand/ uL [facility] MPV 10.2 7.5 - 12.5 fL [facility] ABSOLUTE NEUTROPHILS 6,470 1,500 - 7,800 cells/uL [facility] ABSOLUTE LYMPHOCYTES 1,566 850 - 3,900 cells/uL [facility] ABSOLUTE MONOCYTES 757 200 - 950 cells/uL [facility] ABSOLUTE EOSINOPHILS 80 15 - 500 cells/uL [facility] ABSOLUTE BASOPHILS 27 0 - 200 cells/uL [facility] NEUTROPHILS PCT 72.7 % [facility] [employer] LYMPHOCYTES 17.6 % [facility] [employer] MONOCYTES 8.5 % [facility] EOSINOPHILS 0.9 % [facility] [employer] BASOPHILS 0.3 % [facility] Blood Blood / Unknown 10/15/2024 8 :38 AM EST 10/15/2024 8:39 AM EST Rose Mary Barnes PA-C LAB - BLOOD DRAW Edited Resu lt - Final [facility] [address] [address], [facility] [address] [place] [address] * (ABNORMAL) HEMOGLOBIN GLYCOSYLATED A1C (10/15/2024 8:38 AM EST) HEMOGLOBIN A1C 6.0(H) <5.7 % of total Hgb [facility] Comment: For someone without known diabetes, a hemoglobin A1c value between 5.7% and 6.4% is consistent with prediabetes and should be confirmed with a follow-up test. For someone with known diabetes, a value <7% indicates that their diabetes is well controlled. A1c targets should be individualized based on duration of diabetes, age, comorbid conditions, and other considerations. This assay result is consistent with an increased risk of diabetes. Currently, no consensus exists regarding use of hemoglobin A1c for diagnosis of diabetes for children. Blood Blood / Unknown 10/15/2024 8 :38 AM EST 10/15/2024 8:39 AM EST Rose Mary Barnes PA-C LAB - BLOOD DRAW Final Resul t [facility] [address] [address], [facility] [address] [address] * (ABNORMAL) LIPID PANEL (10/15/2024 8:38 AM EST) [facility] CHOLESTEROL, TOTAL 159 <200 mg/dL [facility] HDL CHOLESTEROL 37(L) > OR = 40 mg/dL boarding pass [facility] TRIGLYCERIDES 119 <150 mg/dL [facility] LDL-CHOLESTEROL 100(H) 99 mg/dL (calc) [facility] Comment: Reference range: <100 Desirable range <100 mg/dL for primary prevention; ?? <70 mg/dL for patients with CHD or diabetic patients with > or = 2 CHD risk factors. LDL-C is now calculated using the Hector-Lena calculation, which is a validated novel method providing better accuracy than the Friedewald equation in the estimation of LDL-C. Hector SS et al. RAAD. 2013;310(19): 4802-7647 (http://education.[employer]Pro/faq/NSV612) CHOL/HDLC RATIO 4.3 <5.0 (calc) [facility] NON-HDL CHOLESTEROL 122 <130 mg/dL (calc) [facility] Comment: For patients with diabetes plus 1 major ASCVD risk factor, treating to a non-HDL-C goal of <100 mg/dL (LDL-C of <70 mg/dL) is considered a therapeutic option. Blood Blood / Unknown 10/15/2024 8 :38 AM EST 10/15/2024 8:39 AM EST Rose Mary Barnes PA-C LAB - BLOOD DRAW Final Resul t [facility] [address] [address], [facility] [address] [place] [address] * (ABNORMAL) COMPREHENSIVE METABOLIC PANEL (10/15/2024 8:38 AM EST) GLUCOSE 104(H) 65 - 99 mg/dL boarding pass [facility] Comment: ?Fasting reference interval For someone without known diabetes, a glucose value between 100 and 125 mg/dL is consistent with prediabetes and should be confirmed with a follow-up test. UREA NITROGEN (BUN) 15 7 - 25 mg/dL [facility] CREATININE (blood) 0.82 0.70 - 1.30 mg/dL [facility] EGFR 107 > OR = 60 mL/min/1. 73m2 [facility] BUN/CREATININE RATIO SEE NOTE: boarding pass [facility] Comment: ?? Not Reported: BUN and Creatinine are within ?? reference range. ? SODIUM 137 135 - 146 mmol/L [facility] POTASSIUM 3.6 3.5 - 5.3 mmol/L [facility] CHLORIDE 97(L) 98 - 110 mmol/L [facility] CARBON DIOXIDE 34(H) 20 - 32 mmol/L [facility] CALCIUM 9.5 8.6 - 10.3 mg/dL [facility] PROTEIN, TOTAL 7.5 6.1 - 8.1 g/dL [facility] ALBUMIN 4.2 3.6 - 5.1 g/dL [facility] GLOBULIN 3.3 1.9 - 3.7 g/dL (calc) [facility] ALBUMIN/GLOBULI N RATIO 1.3 1.0 - 2.5 (calc) [facility] BILIRUBIN, TOTAL 1.1 0.2 - 1.2 mg/dL [facility] ALKALINE PHOSPHATASE 78 35 - 144 U/L [facility] AST 19 10 - 35 U/L [facility] ALT 26 9 - 46 U/L [facility] Blood Blood / Unknown 10/15/2024 8 :38 AM EST 10/15/2024 8:39 AM EST Rose Mary Barnes PA-C LAB - BLOOD DRAW Edited Resu lt - Final Performing Organization Address [facility]/ZIP Co de Phone Number [facility] [address] [address], [facility] [address] [address] * THYROID PANEL WITH TSH (08/11/2024 9:14 AM EST) TSH 3.60 0.40 - 4.50 mIU/L [facility] [place] [email or web address] T-3 UPTAKE 26 22 - 35 % [employer] [facility] T-4 (THYROXINE), TOTAL 9.3 4.9 - 10.5 mcg/dL [facility] FREE T4 INDEX (T7) 2.4 1.4 - 3.8 [employer] [facility] 08/11/2024 9:14 AM EST 08/11/2024 9:14 AM EST Rose Mary Barnes PA-C LAB - BLOOD DRAW Final Resul t Performing Organization Address [facility] Co de Phone Number [facility] [address] [address], [facility] [address] [address] * HEALTH HISTORY SCANNED DOCUMENT (07/29/2024 3:00 AM EST) 07/29/2024 3:00 AM EST [facility] Provider Default SCAN OTHER ORDERS Final Re sult * PROCEDURE SCANNED DOCUMENT (07/29/2024 3:00 AM EST) 07/29/2024 3:00 AM EST us Rose Mary Barnes PA-C SCAN PROCEDURES Final Result * RPR (DIAGNOSIS) WITH REFLEX TO TITER AND CONFIRMATORY TESTING (01/10/2024 9:15 AM EDT) RPR (DX) W/REFL TITER AND CONFIRMATORY TESTING NON-REACT LYNDON NON-REACT LYNDON [facility] Comment: No laboratory evidence of syphilis. If recent exposure is suspected, submit a new sample in 2-4 weeks. Serum Blood / Unknown 01/10/2024 9 :15 AM EDT 01/10/2024 9:16 AM EDT Narrative [facility] - 01/11/2024 9:55 AM EDT SPLIT 01/09/2024 FROM [id number] FASTING:YES us Rose Mary Barnes PA-C LAB - BLOOD DRAW Final Resul t [facility] [address] [place] [address], boarding pass [address] [address] * HIV 1/2 AG & AB W/RFLX (4TH GEN) (01/10/2024 9:15 AM EDT) HIV AG/AB, 4TH GEN NON-REAC TIVE NON-REAC TIVE [facility] Comment: HIV-1 antigen and HIV-1/HIV-2 antibodies were [...] ?? For additional information please refer to http://education.[employer].hiogi/faq/RUY598 (This link is being provided for informational/ educational purposes only.) The performance of this assay has not been clinically validated in patients less than 2 years old. Blood Blood / Unknown 01/10/2024 9 :15 AM EDT 01/10/2024 9:16 AM EDT Narrative [facility] - 01/11/2024 9:55 AM EDT SPLIT 01/09/2024 FROM [id number] FASTING:YES us Rose Mary Barnes PA-C LAB - BLOOD DRAW Final Resul t Performing Organization Address [facility] Co de Phone Number [facility] [address] [address], [facility] [address] [place] [address] * REFERRAL FOR COLONOSCOPY (04/19/2022 3:00 AM EDT) 04/19/2022 3:00 AM EDT us Rose Mary Barnes PA-C REFERRAL Edited Resul t - Final * HEPATITIS C AB W/RFLX HCV RNA, QT, RT PCR (12/15/2020 9:14 AM EDT) HEPATITIS C ANTIBODY NON-REACT LYNDON NON-REACT LYNDON [facility] SIGNAL TO CUT-OFF 0.28 <1.00 [facility] Comment: HCV antibody was non-reactive. There is no laboratory evidence of HCV infection. In most cases, no further action is required. However, if recent HCV exposure is suspected, a test for HCV RNA (test code 73016) is suggested. For additional information please refer to http://education.[employer]/faq/KGF73q3 (This link is being provided for informational/ educational purposes only.) Blood Blood / Unknown 12/15/2020 9 :14 AM EDT 12/15/2020 9:15 AM EDT Rosy LINARES LAB - BLOOD DRAW Final Result Performing Organization Address City/[facility]/ZIP Co de Phone Number [facility] [address] [address], [employer] [facility] [address] [address] from Last 3 Months or Most Recently Relevant to Health Maintenance Insurance [id number] [place] MEDICA[place] Care Teams Dough Scaler And Mixer Relationship Specialty Start Date End Date Rose Mary Barnes PA-C [address] [place] [address] PCP - General FAMILY MEDICINEEAN 08/10/21
--- OUTSIDE RECORDS SUMMARY | 2024-10-21 14:13 | XMS_ITS | Clinical Summary ---
Author Organization [address] [place] [address] [address] [place] [address] Phone Care Team Providers Care Floor Nurse Name Role Phone Rose Mary Barnes Primary Care Provider [phone] Encounters Date Type Department Care Team Description 07/29/2024 2:44 PM EST - 07/29/2024 11:59 PM EST Hospital Encounter [facility] [address] [place] [phone] Anesthesia of skin; Paresthesia of skin Discharge Disposition: Home or Self Care from Last 3 Months Immunizations Name Administration Dates Next Due Moderna SARS-CoV-2 COVID-19, mRNA, LNP-S, preservative free 09/17/2021,01/20/2021,12/25/2020 Surgical History Surgery Date Site/Laterality Comments OTHER SURGICAL HISTORY 02/22/2021 N/A PROCEDURE: [facility] UMBILICAL HRNA 5 YRS/> REDUCIBLE; COMMENT: open umbilical hernia repair with mesh - Dr. Star Bean [facility] Social History Tobacco Use Types Packs/Day Years [...] 08/01/2022 Social Influencers of Health Screening 08/01/2022 Pneumococcal Vaccine: 50+ Years (1 of 1 - PCV) 01/27/2024 COVID-19 Vaccine (2023- season) 2024 01/09/2024, 11/10/2022, 09/17/2021, Additional history exists Zoster [...] patient's age to complete this topic Meningococcal B Vacine Aged Out No lo nger eligible based on patient's age to complete [...] Months Insurance MEDICAID - [place] Care Teams Floor Nurse Relationship Specialty Start Date End Date Rose Mary Barnes PA [address] [place] [address] PCP - General 07/29/24
== END 2024-10-21 13:47 | disposition home or self-care (01) ==
PROVIDERS: PCP Internal Medicine Hematology & Oncology
DX: G56.03 Carpal tunnel syndrome, bilateral upper limbs (principal)
CPT/HCPCS: 99024

== ENCOUNTER → 2024-10-21 13:17 | Outpatient (BNVA) | payer MEDICAID, SELFPAY | PROVIDERS: PCP Internal Medicine Hematology & Oncology | DX: G56.02 Carpal tunnel syndrome, left upper limb (principal); Z09 Encounter for follow-up examination after completed treatment for conditions other than malignant neoplasm; Z86.69 Personal history of other diseases of the nervous system and sense organs; Z98.890 Other specified postprocedural states | CPT/HCPCS: 99212 ==

== ENCOUNTER 2024-10-24 13:42 | Outpatient (RCR) | payer MEDICAID, SELFPAY ==
--- NOTE | 2024-11-13 11:14 | MHC.PT.DC ---
[facility] [place] [facility] [place] [facility] [place] [facility] [address] Manuel Jacobs [address] [phone] F: [phone] F: [phone] F: [phone] F: [phone] Physical Therapy Discharge Report Diagnosis: LEFT KNEE PAIN (KP) Date of Surgery: Date of Evaluation: 09/08/24 Date of Discharge: 10/24/24 Treatments to Date: 8 Cancellations to Date: 0 No Shows to Date: 0 Discharge Status: Achieved Goals Independent with HEP Discharge Summary: 10/24 pt liss above ex today w/o increased px. Minimal change in symptoms with 4 weeks of PT. D/C today to HEP and educ to cont with current program. Encouraged to contact MD to check on his MRI order status and follow up with con't concerns, Electronically signed by: Irma Mujica PT DPT Please sign and return to therapist. Thank you for your referral.
== END 2024-11-13 11:14 | disposition home or self-care (01) ==
LOC: HO.PT 13:42
PROVIDERS: PCP Physician Assistant Medical; Visit Provider Physician Assistant
DX: M17.11 Unilateral primary osteoarthritis, right knee (principal)
CPT/HCPCS: 97110; 97162; 97530

== ENCOUNTER 2024-10-29 19:27 | Outpatient (REF) | payer MEDICAID, SELFPAY ==
--- NOTE | ~2024-10-29 | MR_ITS ---
CLINICAL HISTORY: M17.12 - Unilateral primary osteoarthritis, left knee MR left knee without gadolinium Comparison: None Findings: No fractures. No pathologic bone lesions. There is thinning of the articular cartilage in the medial compartment. Associated with minor osteoarthritic changes. There is thinning of the articular cartilage along the medial facet of the patella. There is a chronic appearing defect along the central trochlea. There is a small joint effusion. All ligaments are intact. Patellar retinacula and iliotibial band are intact. The patellar tendon is intact as is the quadriceps tendon. There is a complex degenerative tear of the posterior horn of the medial meniscus. The anterior horn is intact. The lateral meniscus is normal. There is prominence of the tibial tuberosity with fragmentation suggestive of [place] Schlatter's disease. Unusual signal abnormality within the distal femoral diaphysis continuing into the adjacent lateral soft tissues of uncertain nature but likely related to some sort of intervention. please correlate clinically. IMPRESSION: 1. Complex degenerative tear of the posterior horn of the medial meniscus. 2. Thinning of the articular cartilage in the medial compartment with minor osteoarthritic changes. 3. 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 4. Small joint effusion. 5. Chronic changes related patellofemoral articular cartilage as above. This document has been electronically signed by: Chris Phillip MD on 10/30/2024 13:15:43
--- OUTSIDE RECORDS SUMMARY | 2024-10-29 20:08 | XMS_ITS | Clinical Summary ---
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 Whole body radioiodine scan (post [...] Encounters Date Type Department Care Team Description 10/24/2024 9:00 AM EST Office Visit [facility] [address] [place] [address] Luiza Garza Encounter for dental examination (Primary Dx) 09/16/2024 11:20 AM EST Office [facility] [address] [place] [address] Rose Mary Barnes PA-C Prediabetes (Primary Dx); [...] Sign Reading Time Taken Comments Blood Pressure 117/76 10/24/2024 9:04 AM EST Pulse 68 10/24/2024 9:04 AM EST Temperature 36.4 ??C (97.5 ??F) [...] Care Team (Late st Contact Info) Description 04/24/2025 1:00 PM EDT Office Visit [address] [address] Luiza Garza [address] [place] [address] Health Maintenance Due Date Last Done Comments CT Colonography 2019 FIT/gFOBT 2019 Fecal DNA 2019 Flexible Sigmoidoscopy 2019 Depression Monitoring 12/15/2024 09/16/2024 , 06/05/2024, 04/10/2024, Additional history exists [id number] ( season) 2024 01/09/2024, 11/10/2022, 09/17/2021, Additional history exists Postponed from 05/04/2024 (Patient postponement) HIV Screening 01/09/2025 01/10/2024, 12/03, 11/01/2022, Additional history exists Syphilis Screening 01/09/2025 01/10/2024, 0 12/29/2022, 11/01/2022 Annual Preventive Care Visit 04/10/2025 04/10/2024, 10/25/2022, 01/18/2021, Additional history exists Tobacco Screening 04/10/2025 04/10/2024 Dental Perio Charting 04/12/2025 04/10/2024 , 01/09/2023, 02/14/2022 Diabetes Screening 10/15/2025 10/15/2024, 0 10/15/2024, 05/02/2024, Additional history exists Lipid Screening 10/15/2025 10/15/2024, 08/3 , 01/10/2024, Additional history exists Dental BW 10/26/2025 10/24/2024, 08/0 04/2024, 10/11/2023, Additional history exists Dental Examination 10/26/2025 10/24/2024, 0 04/10/2024, 10/11/2023, Additional history exists Dental Prophy 10/26/2025 10/24/2024, 08/0 04/2024, 10/11/2023, Additional history exists Imm-DTaP/Tdap/Td (2 - Td [...] Procedure Name Priority Date/Time Associated Diagnosis Comments DENTAL CASE MANAGEMENT - MOTIVATIONAL INTV Routine 10/24/2024 9:00 AM EST Encounter for dental examination PROPHYLAXIS - ADULT Routine 10/24/2024 9 :00 AM EST Encounter for dental examination BITEWINGS - FOUR RADIOGRAPHIC IMAGES Routine 10/24/2024 9:00 AM EST Encounter for dental examination PERIODIC ORAL EVALUATION ESTABLISHED PATIENT Routine 10/24/2024 9:00 AM EST Encounter for dental examination CARIES RISK ASSESSMENT & DOC FINDING MOD RISK Routine 10/24/2024 9:00 AM EST Encounter for dental examination NUTRITIONAL COUNSELING CONTROL OF DENTAL DISEASE Routine 10/24/2024 9:00 AM EST Encounter for dental examination ORAL HYGIENE INSTRUCTIONS Routine 10/24/2024 9:00 AM EST Encounter for dental examination ORAL CANCER SCREENING Routine 10/24/2024 9:00 AM EST Encounter for dental examination CASE PRESENTATION SUBS DTL & EXTENSIVE TX PLN Routine 10/24/2024 9:00 AM EST Encounter for dental examination LIPID PANEL Routine 10/15/2024 8:38 AM EST [...] COUNT 8.9 3.8 - 10.8 Thousand/ uL [facility] RED BLOOD CELL COUNT 5.06 4.20 - 5.80 Million/u L [facility] HEMOGLOBIN 15.3 13.2 - 17.1 g/dL [facility] HEMATOCRIT 45.8 38.5 - 50.0 % [facility] MCV 90.5 80.0 - 100.0 fL [facility] MCH 30.2 27.0 - 33.0 pg [facility] MCHC 33.4 32.0 - 36.0 g/dL [facility] Comment: For adults, a slight decrease in the calculated MCHC value (in the range of 30 to 32 g/dL) is most likely not clinically significant; however, it should be interpreted with caution in correlation with other red cell parameters and the patient's clinical condition. RDW 13.8 11.0 - 15.0 % [facility] PLATELET COUNT 287 140 - 400 Thousand/ uL [facility] MPV 10.2 7.5 - 12.5 fL [facility] ABSOLUTE NEUTROPHILS 6,470 1,500 - 7,800 cells/uL [facility] ABSOLUTE LYMPHOCYTES 1,566 850 - 3,900 cells/uL [facility] ABSOLUTE MONOCYTES 757 200 - 950 cells/uL [facility] ABSOLUTE EOSINOPHILS 80 15 - 500 cells/uL [facility] ABSOLUTE BASOPHILS 27 0 - 200 cells/uL [facility] NEUTROPHILS PCT 72.7 % [facility] [employer] LYMPHOCYTES 17.6 % [facility] MONOCYTES 8.5 % [facility] EOSINOPHILS 0.9 % [facility] [employer] BASOPHILS 0.3 % [employer] Blood Blood / Unknown 10/15/2024 8 :38 AM EST 10/15/2024 8:39 AM EST us Rose Mary Barnes PA-C LAB - BLOOD DRAW Edited Resu lt - Final Performing Organization Address [facility]/ZIP Co [place] [address], [facility] [address] [address] * (ABNORMAL) HEMOGLOBIN GLYCOSYLATED A1C (10/15/2024 8:38 AM EST) HEMOGLOBIN A1C 6.0(H) <5.7 % of total Hgb [facility] Comment: For someone without known diabetes, a [...] :38 AM EST 10/15/2024 8:39 AM EST us Rose Mary Barnes PA-C LAB - BLOOD DRAW Final Resul t Performing Organization Address [facility] Co de Phone Number [facility] [address] [address], [facility] [address] [address] * (ABNORMAL) LIPID PANEL (10/15/2024 8:38 AM EST) CHOLESTEROL, TOTAL 159 <200 mg/dL [facility] HDL CHOLESTEROL 37(L) > OR = 40 mg/dL [facility] TRIGLYCERIDES 119 <150 mg/dL [facility] LDL-CHOLESTEROL 100(H) 99 mg/dL (calc) [facility] Comment: Reference range: <100 Desirable range <100 mg/dL for primary prevention; ?? <70 mg/dL for patients with CHD or diabetic patients with > or = 2 CHD risk factors. LDL-C is now calculated using the Hector-Paredes calculation, which is a validated novel method providing better accuracy than the Friedewald equation in the estimation of LDL-C. Hector LOMBARDO et al. RAAD. 2013;310(19): 1046-8330 (http://education.Kili/faq/TGW567) CHOL/HDLC RATIO 4.3 <5.0 (calc) [facility] NON-HDL CHOLESTEROL 122 <130 mg/dL (calc) [facility] Comment: For patients with diabetes plus 1 major ASCVD risk factor, treating to a non-HDL-C goal of <100 mg/dL (LDL-C of <70 mg/dL) is considered a therapeutic option. Blood Blood / Unknown 10/15/2024 8 :38 AM EST 10/15/2024 8:39 AM EST Rose Mary Barnes PA-C LAB - BLOOD DRAW Final Resul t [facility] [facility] [address] [place] [address], [facility] [address] [place] [phone] * (ABNORMAL) COMPREHENSIVE METABOLIC PANEL (10/15/2024 8:38 AM EST) [facility] GLUCOSE 104(H) 65 - 99 mg/dL [facility] Comment: ?Fasting reference interval For someone without known diabetes, a glucose value between 100 and 125 mg/dL is consistent with prediabetes and should be confirmed with a follow-up test. UREA NITROGEN (BUN) 15 7 - 25 mg/dL [facility] CREATININE (blood) 0.82 0.70 - 1.30 mg/dL [facility] EGFR 107 > OR = 60 mL/min/1. 73m2 [facility] BUN/CREATININE RATIO SEE NOTE: [facility] Comment: ?? Not Reported: BUN and Creatinine are within ?? reference range. ? SODIUM 137 135 - 146 mmol/L [facility] POTASSIUM 3.6 3.5 - 5.3 mmol/L [facility] CHLORIDE 97(L) 98 - 110 mmol/L [facility] CARBON DIOXIDE 34(H) 20 - 32 mmol/L [facility] CALCIUM 9.5 8.6 - 10.3 mg/dL [facility] PROTEIN, TOTAL 7.5 6.1 - 8.1 g/dL [facility] ALBUMIN 4.2 3.6 - 5.1 g/dL [facility] GLOBULIN 3.3 1.9 - 3.7 g/dL (calc) [facility] ALBUMIN/GLOBULI N RATIO 1.3 1.0 - 2.5 (calc) [facility] BILIRUBIN, TOTAL 1.1 0.2 - 1.2 mg/dL [facility] ALKALINE PHOSPHATASE 78 35 - 144 U/L [facility] AST 19 10 - 35 U/L [facility] ALT 26 9 - 46 U/L [facility] Blood Blood / Unknown 10/15/2024 8 :38 AM EST 10/15/2024 8:39 AM EST us Rose Mary Barnes PA-C LAB - BLOOD DRAW Edited Resu lt - Final Performing Organization Address City/[facility] Co de Phone Number [facility] [address] [address], [facility] [address] [address] * THYROID PANEL WITH TSH (08/11/2024 9:14 AM EST) TSH 3.60 0.40 - 4.50 mIU/L [facility] T-3 UPTAKE 26 22 - 35 % [facility] T-4 (THYROXINE), TOTAL 9.3 4.9 - 10.5 mcg/dL [facility] FREE T4 INDEX (T7) 2.4 1.4 - 3.8 [facility] 08/11/2024 9:14 AM EST 08/11/2024 9:14 AM EST us Rose Mary Barnes PA-C LAB - BLOOD DRAW Final Resul t Performing Organization Address [facility]/ZIP Co de Phone Number [facility] [address] [address], [facility] [address] [phone] * HEALTH HISTORY SCANNED DOCUMENT (07/29/2024 3:00 AM EST) 07/29/2024 3:00 AM EST [facility] Provider Default SCAN OTHER ORDERS Final Re sult * PROCEDURE SCANNED DOCUMENT (07/29/2024 3:00 AM EST) 07/29/2024 3:00 AM EST [facility] Rose Mary Barnes PA-C SCAN PROCEDURES Final Result * RPR (DIAGNOSIS) WITH REFLEX TO TITER AND CONFIRMATORY TESTING (01/10/2024 9:15 AM EDT) RPR (DX) W/REFL TITER AND CONFIRMATORY TESTING NON-REACT LYNDON NON-REACT LYNDON [facility] Comment: No laboratory evidence of syphilis. If recent exposure is suspected, submit a new sample in 2-4 weeks. Serum Blood / Unknown 01/10/2024 9 :15 AM EDT 01/10/2024 9:16 AM EDT Narrative [facility] [facility] [facility] - 01/11/2024 9:55 AM EDT SPLIT 01/09/2024 FROM [id number] FASTING:YES Rose Mary Barnes PA-C LAB - BLOOD DRAW Final Resul t [facility] [address] [address], [facility] [address] [place] [address] * HIV 1/2 AG & AB W/RFLX (4TH GEN) (01/10/2024 9:15 AM EDT) HIV AG/AB, 4TH GEN NON-REAC TIVE NON-REAC TIVE [facility] Comment: HIV-1 antigen and HIV-1/HIV-2 antibodies were [...] ?? For additional information please refer to http://AetherPal.Agillic/faq/FPT148 (This link is being provided for informational/ educational purposes only.) The performance of this assay has not been clinically validated in patients less than 2 years old. Blood Blood / Unknown 01/10/2024 9 :15 AM EDT 01/10/2024 9:16 AM EDT Narrative [facility] - 01/11/2024 9:55 AM EDT SPLIT 01/09/2024 FROM [id number] FASTING:YES [facility] Rose Mary Barnes PA-C LAB - BLOOD DRAW Final Resul t [facility] [address] [place] [address], [facility] [address] [place] [phone] * REFERRAL FOR COLONOSCOPY (04/19/2022 3:00 AM EDT) 04/19/2022 3:00 AM EDT [facility] StephaniWibiyaanjelica Barnes PA-C REFERRAL Edited Resul t - Final * HEPATITIS C AB W/RFLX HCV RNA, QT, RT PCR (12/15/2020 9:14 AM EDT) HEPATITIS C ANTIBODY NON-REACT LYNDON NON-REACT LYNDON [facility] SIGNAL TO CUT-OFF 0.28 <1.00 [facility] Comment: HCV antibody was non-reactive. There is no laboratory evidence of HCV infection. In most cases, no further action is required. However, if recent HCV exposure is suspected, a test for HCV RNA (test code 65592) is suggested. For additional information please refer to http://education.Agillic/faq/ORY56t7 (This link is being provided for informational/ educational purposes only.) Blood Blood / Unknown 12/15/2020 9 :14 AM EDT 12/15/2020 9:15 AM EDT Rosy العلي ELECTROPLATING TECHNICIAN LAB - BLOOD DRAW Final Result [facility] [address] [address], [facility] [address] [address] from Last 3 Months or Most Recently Relevant to Health Maintenance Insurance [facility] MEDICAID DENTAL Care Teams Refinery Operator Vapor Recovery Unit Relationship Specialty Start Date End Date Rose Mary Barnes PA-C [address] [place] [address] PCP - General FAMILY MEDICINE, EAN 08/10/21
--- OUTSIDE RECORDS SUMMARY | 2024-10-29 20:09 | XMS_ITS | Encounter Summary ---
Author Organization [facility] Address [address] [place] [address] Care Team Providers Care Sprue Knocker Name Role Phone Rose Mary Barnes PA-C Primary Care Provider + [phone] Reason for Visit * Reason Comments Dental Hygiene/ Preventive Encounter Details Date Type Department Care Team ([facility] st Contact Info) Description 10/24/2024 9:00 AM EST Office Visit [facility] [address] [place] [phone] Luiza Garza [address] [place] [address] Encounter for dental examination (Primary Dx) Social History Tobacco Use Types Packs/Day Years [...] Orientation Straight 12/07/2017 10 :09 AM PDT documented as of this encounter Last Filed Vital Signs Vital Sign Reading Time Taken Comments Blood Pressure 117/76 10/24/2024 9:04 AM EST Pulse 68 10/24/2024 9:04 AM EST Temperature - - Respiratory Rate - - Oxygen Saturation - - Inhaled Oxygen Concentration - - Weight - - Height - - Body Mass Index - - documented in this encounter Progress Notes * Luiza Garza - 10/24/2024 9:32 AM EST RAKESH+BW+Prophy Subjective Manjinder Moreno, 49 year old male, presents alone for prophy. Derrick Boat Captain: No Chief Complaint Patient presents with Dental Hygiene/ Preventive Objective RMHx: Yes, no change per pt Vitals: Vitals: 10/24/24 0904 BP: 117/76 Pulse: 68 BP Site: Right Wrist BP Position: Sitting BP Cuff Size: Regular Adult Assessment EOE/IOE/Oral Cancer Screen: WNL Oral Hygiene: Good Home Care: Toothbrush 2 x per day, Floss 1 x per day Fluoride exposure: toothpaste Plaque: Generalized Slight Calculus: Localized Slight UR molar Gingival Description: Smooth/Stippled Inflammation: None Recession: Generalized Slight Bone Loss: Generalized Slight Staining: None Full Perio Charting completed: No Dx: Z01.20 Encounter for dental examination (primary encounter diagnosis) DH Dx Details: 4bw taken Dr Patino exam : clinical and x-ray : wnl, no new finding Plan 1) recall Informed Consent/PARQ (Procedure, Alternatives, Risks, Questions): Patient confirms informed consent using PARQ. Dental procedures in this visit D9450 - CASE PRESENTATION SUBS DTL & EXTENSIVE TX PLN (Completed) Service provider: Luiza Garza Billing provider: Angy Patino DDS [id number] - ORAL CANCER SCREENING (Completed) Service provider: Luiza Garza Billing provider: Angy Patino DDS D1330 - ORAL HYGIENE INSTRUCTIONS (Completed) Service provider: Luiza Garza Billing provider: Angy Patino DDS D1310 - NUTRITIONAL COUNSELING CONTROL OF DENTAL DISEASE (Completed) Service provider: Luiza Garza Billing provider: Angy Patino DDS D0602 - CARIES RISK ASSESSMENT & DOC FINDING MOD RISK (Completed) Service provider: Luiza Garza Billing provider: Angy Patino DDS D0120 - PERIODIC ORAL EVALUATION ESTABLISHED PATIENT (Completed) Service provider: Luiza Garza Billing provider: Angy Patino DDS D0274 - BITEWINGS - FOUR RADIOGRAPHIC IMAGES (Completed) Service provider: Luiza Garza Billing provider: Angy Patino DDS D1110 - PROPHYLAXIS - ADULT (Completed) Service provider: Luiza Garza Billing provider: Angy Patino DDS D9993 - DENTAL CASE MANAGEMENT - MOTIVATIONAL INTV (Completed) Service provider: Luiza Garza Billing provider: GERARDO [place] completed with ultrasonic derrick operator, hand scaling, coronal polishing, and floss OHI & Nutrition counseling provided, discussed: Proper brushing technique, Proper flossing technique, reviewed brushing technique. OHI given . Pt handled tx very well. Left satisfied. Post-Op Information Given: verbal Behavior: Excellent NV: Recall Luiza Garza [facility]/ Dr Patino documented in this encounter Miscellaneous Notes * Patient Instructions - Luiza Garza - 10/24/2024 9:23 AM EST If you are not able to keep your appointment please call 24-48 hours before your appointment to cancel or reschedule. documented in this encounter Plan of Treatment Upcoming Encounters Date Type Department Care Team (Late st Contact Info) Description 04/24/2025 1:00 PM EDT Office Visit [address] [address] Luiza Garza [address] [place] [phone] documented as of this encounter Procedures Procedure Name Priority Date/Time Associated Diagnosis Comments ORAL CANCER SCREENING Routine 10/24/2024 9:00 AM EST Encounter for dental examination DENTAL CASE MANAGEMENT - MOTIVATIONAL INTV Routine [...] 9:00 AM EST Encounter for dental examination documented in this encounter Visit Diagnoses Diagnosis Encounter for dental examination- Primary Dental examination documented in this encounter Additional Health Concerns Assessment Noted Time PHQ-9 Depression Total Score: 0 09/16/19 25 11:49 AM PST documented as of this encounter Care Teams Sprue Knocker Relationship Specialty Start Date End Date Rose Mary Barnes PA-C [address] [place] [address] PCP - General FAMILY MEDICINEEAN 08/10/21 documented as of this encounter
--- OUTSIDE RECORDS SUMMARY | 2024-10-29 20:09 | XMS_ITS | Clinical Summary ---
Author Organization [address] [place] [address] Address [address] [place] [address] Phone Care Team Providers Care Group President Name Role Phone Rose Mary Barnes Primary Care Provider [phone] Encounters Date Type Department Care Team Description 07/29/2024 2:44 PM EST - 07/29/2024 11:59 PM EST Hospital Encounter [facility] [address] [place] [phone] Anesthesia of skin; Paresthesia of skin Discharge Disposition: Home or Self Care from Last 3 Months Immunizations Name Administration Dates Next Due Moderna SARS-CoV-2 COVID-19, mRNA, LNP-S, preservative free 09/17/2021,01/20/2021,12/25/2020 Surgical History Surgery Date Site/Laterality Comments OTHER SURGICAL HISTORY 02/22/2021 N/A PROCEDURE: IA RPR UMBILICAL HRNA 5 YRS/> REDUCIBLE; COMMENT: open umbilical hernia repair with mesh - [facility]. [facility] Social History Tobacco Use Types Packs/Day Years [...] Months Insurance MEDICAID - [place] Care Teams Group President Relationship Specialty Start Date End Date Rose Mary Barnes PA [address] [place] [address] PCP - General 07/29/24
== END 2024-10-29 19:28 | disposition home or self-care (01) ==
LOC: HO.MRI 19:27
PROVIDERS: PCP Internal Medicine Hematology & Oncology; Visit Provider Physician Assistant
DX: M17.12 Unilateral primary osteoarthritis, left knee (principal)
CPT/HCPCS: 73721

== ENCOUNTER → 2024-10-29 19:39 | Outpatient (BNV) | payer MEDICAID, SELFPAY | PROVIDERS: PCP Internal Medicine Hematology & Oncology; Visit Provider Radiology Diagnostic Radiology | DX: M17.12 Unilateral primary osteoarthritis, left knee (principal) | CPT/HCPCS: 73721 ==

== ENCOUNTER 2024-11-14 08:14 | Outpatient (AMB) | payer MEDICAID, SELFPAY ==
[2024-11-14 08:20] VITALS: BMI 27.7
--- NOTE | 2024-11-14 08:20 | MHC.OFFVIS ---
Vital Signs 11/14/24 08:20 Height 6 ft 2 in Weight 216 lb BMI 27.7 Intake Visit Reasons: OV cyst lt thumb Intake Note: Manjinder is a 49 year old right hand dominant male who presents today for a follow up visit of his left thumb cyst. Laboratory Administrative Director Required: Yes Laboratory Administrative Director Language: Telegraphic Typewriter Operator Chief Services: Laboratory Administrative Director Present Laboratory Administrative Director Name: Braxton([id number]) Allergies Penicillins Allergy (Verified 11/14/24 08:20) Unknown HPI HPI OV cyst lt thumb: Details: Manjinder is a 49 year old right hand dominant male who presents today for a follow up visit of his left thumb cyst. The patient reports that he has had this cyst drained in the past, and it recurred. Patient expresses that he is interested in excision of the cyst at this time. No other acute complaints or concerns at this time. [facility] Medical History Anxiety Depression GERD (gastroesophageal reflux disease) Hypercholesteremia Hypothyroid Surgical History History of surgery on lower extremity Hx of thyroidectomy Social History Are you a primary day care teacher to a significant other at home: No Do you presently have visiting nurse or other home services: No Patient Tobacco Use Status: Never used Tobacco Current occupational status: unemployed Current occupation: right hand dominant Review of Systems Const All systems reviewed & are unremarkable except as noted in HPI and below Physical Exam Vital Signs: BMI result Body Mass Index 27.7 Extrem Other: Patient is alert, oriented, and in no acute distress. Neuro: Normal sensation of the tips of all digits of the left hand at this time Vascular: Cap refill brisk Pain: No pain with palpation around the incision site No pain with range of motion ROM: Patient is able to flex and extend all digits of the left hand fully and without difficulty Skin: There is noted to be an approximately 1 cm in diameter, mobile, fluid filled mass noted on the dorsal aspect of the IP joint of the left thumb General: No ecchymosis, erythema, or evidence of infection. Psych: Appears grossly normal Affect normal Attitude cooperative Assessment & Plan Assessment & Plan (1) Ganglion cyst of finger of left hand: Code(s): M67.442 - Ganglion, left hand Category: Medical Plan 1. Ganglion cyst of IP joint of left thumb I educated the patient about the condition. I discussed both operative and nonoperative treatment options. The patient would like to proceed with surgery. The risks and benefits of operative treatment were discussed with the patient and the patient wishes to proceed with surgery. These risks include, but are not limited to, risk of damage to blood vessels, nerves, tendons, infection, recurrence, incomplete relief of preoperative symptoms, persistent pain, possible need for further surgery, and the risks associated with regional blocks and/or anesthesia. Plan is to take the patient to the operating room at some point in the next few weeks for the following procedures: Left thumb ganglion cyst excision under local All of the preoperative paperwork including the consent was discussed today. All of the patient's questions were answered in the clinic today. The patient understands that they will be in contact with our surgical instrument mechanic to discuss scheduling their procedure. Patient denies diabetes, blood thinners, asthma, heart issues, lung issues, kidney issues, or current smoking. Coding Level of Care Code Est Pt Level 4 (65032) Diagnoses Ganglion cyst of finger of left hand M67.442
--- OUTSIDE RECORDS SUMMARY | 2024-11-14 08:25 | XMS_ITS | Clinical Summary ---
Author Organization [facility] Address [address] [place] [address] Care Team Providers Care Night Nurse Name Role Phone Rose Mary Barnes PA-C Primary Care Provider [phone] Source Comments PLEASE NOTE, if this patient is a minor, it may be UNLAWFUL to discuss sensitive information that is contained in these records (such as FAMILY PLANNING, MENTAL HEALTH or SUBSTANCE ABUSE) with the minor patient's parent or other person without the patient's specific authorization.[facility] Allergies Active Allergy Reactions Criticality Noted Date Comments Penicillins 12/07/2017 Medications hydrOXYzine HCL (ATARAX) 50 mg tabletIndicatio ns:Anxiety Take 1 Tablet by mouth 3 (three) times daily as needed for anxiety 90 Tablet 1 01/09/20 24 Active mineral oil-hydrophil petrolat (AQUAPHOR) ointmentIndicat ions:Dry skin dermatitis Apply topically 2 (two) times daily 452 g 2 04/10/20 24 Active escitalopram (LEXAPRO) 20 mg tabletIndicatio ns:Anxiety with depression Take 1 Tablet by mouth once daily 90 Tablet 1 04/29/20 24 Active levothyroxine 150 mcg tabletIndicatio ns:Hypothyroidi sm, unspecified type Take 1 Tablet by mouth every morning before breakfast 90 Tablet 1 06/01/20 24 Active tadalafiL (CIALIS) 20 mg tabletIndicatio ns:Other male erectile dysfunction Take 1 Tablet by mouth once daily as needed for erectile dysfunction 10 Tablet 2 06/05/20 24 Active omeprazole (PRILOSEC) [address] capsuleIndicati ons:Gastroesoph ageal reflux disease without esophagitis TAKE 1 CAPSULE BY MOUTH ONCE DAILY IN THE MORNING BEFORE BREAKFAST 90 Capsule 1 06/17/20 24 Active chlorthalidone (HYGROTEN) 25 mg tabletIndicatio ns:Essential hypertension Take 1 Tablet by mouth once daily 90 Tablet 1 08/06/20 24 Active ALLERGY RELIEF, CETIRIZINE, 10 mg tabletIndicatio ns:Environmenta l allergies Take 1 tablet by mouth once daily 90 Tablet 08/12/20 24 Active atorvastatin (LIPITOR) 10 mg tabletIndicatio ns:Prediabetes, Mixed hyperlipidemia, Essential hypertension TOME 1 TABLETA POR VIA ORAL TODOS [place]YN[place] AL ACOSTARSE 90 Tablet 1 11/12/19 25 Active atorvastatin (LIPITOR) 10 mg tabletIndicatio ns:Prediabetes, Mixed hyperlipidemia, Essential hypertension Take 1 Tablet by mouth nightly at bedtime 90 Tablet 1 05/19/20 24 025 Discontinued Active Problems Problem Noted Date Diagnosed Date [...] 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 Whole body radioiodine scan (post [...] Description 10/24/2024 9:00 AM EST Office Visit [facility] [address] [place] [address] Luiza Garza Encounter for dental examination (Primary Dx) 09/16/2024 11:20 AM EST Office Visit [facility] [address] Rose Mary Barnes PA-C Prediabetes [...] Care Team (Late st Contact Info) Description 11/17/2024 11:20 AM EDT Telemedicine Visit [facility] [address] [place] [address] Rose Mary Barnes PA-C [address] [facility] [place] [address] 04/24/2025 1:00 PM EDT Office Visit [facility] [address] [place] [phone] Luiza Garza [address] [place] [address] Health Maintenance Due Date Last Done Comments CT Colonography 2019 FIT/gFOBT 2019 Fecal DNA 2019 Flexible Sigmoidoscopy 2019 Depression Monitoring 12/15/2024 09/16/2024 , 06/05/2024, 04/10/2024, Additional history exists [id number] ( season) 2024 01/09/2024, 11/10/2022, 09/17/2021, Additional history exists Postponed from 05/04/2024 (Patient postponement) HIV Screening 01/09/2025 01/10/2024, 04/2 04/2023, 11/01/2022, Additional history exists Syphilis Screening 01/09/2025 [...] Procedure Name Priority Date/Time Associated Diagnosis Comments REFERRAL SCANNED DOCUMENT 11/04/2024 3:00 AM EST REFERRAL SCANNED DOCUMENT 11/04/2024 3:00 AM EST DENTAL CASE MANAGEMENT - MOTIVATIONAL INTV Routine [...] 10/15/2024 8:38 AM EST Prediabetes Mixed hyperlipidemia PANORAMIC RADIOGRAPHIC IMAGE Routine 07/11/2024 2:00 PM [...] Recently Relevant to Health Maintenance Results * REFERRAL SCANNED DOCUMENT (11/04/2024 3:00 AM EST) Only the most recent of2 resultswithin the time period is included. 11/04/2024 3:00 AM EST Rose Mary Barnes PA-C SCAN REFERRAL Final Result * BLOOD COUNT COMPLETE AUTO&AUTO DIFRNTL WBC (10/15/2024 8:38 AM EST) WHITE BLOOD CELL COUNT 8.9 3.8 - 10.8 Thousand/ uL [facility] RED BLOOD CELL COUNT 5.06 4.20 - 5.80 Million/u L [facility] HEMOGLOBIN 15.3 13.2 - 17.1 g/dL [facility] HEMATOCRIT 45.8 38.5 - 50.0 % [facility] MCV 90.5 80.0 - 100.0 fL [facility] MCH 30.2 27.0 - 33.0 pg [facility] MCHC 33.4 32.0 - 36.0 g/dL [facility] Comment: For adults, a slight decrease in the calculated MCHC value (in the range of 30 to 32 g/dL) is most likely not clinically significant; however, it should be interpreted with caution in correlation with other red cell parameters and the patient's clinical condition. RDW 13.8 11.0 - 15.0 % [facility] PLATELET COUNT 287 140 - 400 Thousand/ uL [facility] MPV 10.2 7.5 - 12.5 fL [facility] ABSOLUTE NEUTROPHILS 6,470 1,500 - 7,800 cells/uL [facility] ABSOLUTE LYMPHOCYTES 1,566 850 - 3,900 cells/uL [facility] ABSOLUTE MONOCYTES 757 200 - 950 cells/uL [facility] ABSOLUTE EOSINOPHILS 80 15 - 500 cells/uL [facility] [employer] [place] [facility] ABSOLUTE BASOPHILS 27 0 - 200 cells/uL [facility] NEUTROPHILS PCT 72.7 % [facility] LYMPHOCYTES 17.6 % [facility] DI AGNUrban MappingS [employer] MONOCYTES 8.5 % [facility] DIAG [employer] [facility] EOSINOPHILS 0.9 % [facility] DI AGNUrban [employer]S [employer] [facility] BASOPHILS 0.3 % [facility] DI[facility] [employer] [facility] Blood Blood / Unknown 10/15/2024 8 :38 AM EST 10/15/2024 8:39 AM EST us Rose Mary Barnes PA-C LAB - BLOOD DRAW Edited Resu lt - Final [facility] [address] [address], [facility] [address] [address] * (ABNORMAL) HEMOGLOBIN GLYCOSYLATED A1C (10/15/2024 8:38 AM EST) HEMOGLOBIN A1C 6.0(H) <5.7 % of total Hgb [facility] Comment: For someone without known diabetes, a [...] DRAW Final Resul t Performing Organization Address City/[facility]/ZIP Co de Phone Number [facility] [address] [address], [facility] [address] [address] * (ABNORMAL) LIPID PANEL (10/15/2024 8:38 AM EST) CHOLESTEROL, TOTAL 159 <200 mg/dL [facility] HDL CHOLESTEROL 37(L) > OR = 40 mg/dL [facility] TRIGLYCERIDES 119 <150 mg/dL [facility] LDL-CHOLESTEROL 100(H) 99 mg/dL (calc) [facility] Comment: Reference range: <100 Desirable range <100 mg/dL for primary prevention; ?? <70 mg/dL for patients with CHD or diabetic patients with > or = 2 CHD risk factors. LDL-C is now calculated using the Edwina calculation, which is a validated novel method providing better accuracy than the Friedewald equation in the estimation of LDL-C. Hector LOMBARDO et al. RAAD. 2013;310(19): 6309-9424 (http://education.Flit/faq/JGY635) CHOL/HDLC RATIO 4.3 <5.0 (calc) [facility] NON-HDL CHOLESTEROL 122 <130 mg/dL (calc) [facility] Comment: For patients with diabetes plus 1 major ASCVD risk factor, treating to a non-HDL-C goal of <100 mg/dL (LDL-C of <70 mg/dL) is considered a therapeutic option. Blood Blood / Unknown 10/15/2024 8 :38 AM EST 10/15/2024 8:39 AM EST us Rose Mary Barnes PA-C LAB - BLOOD DRAW Final Resul t Performing Organization Address City/[facility]/ZIP Co de Phone Number [facility] [address] [address], [facility] [address] [address] * (ABNORMAL) COMPREHENSIVE METABOLIC PANEL (10/15/2024 8:38 AM EST) GLUCOSE 104(H) 65 - 99 mg/dL [facility] Comment: ?Fasting reference interval For someone without known diabetes, a glucose value between 100 and 125 mg/dL is consistent with prediabetes and should be confirmed with a follow-up test. UREA NITROGEN (BUN) 15 7 - 25 mg/dL [facility] CREATININE (blood) 0.82 0.70 - 1.30 mg/dL [facility] EGFR 107 > OR = 60 mL/min/1. 73m2 [facility] BUN/CREATININE RATIO SEE NOTE: [facility] Comment: ?? Not Reported: BUN and Creatinine are within ?? reference range. ? SODIUM 137 135 - 146 mmol/L [facility] POTASSIUM 3.6 3.5 - 5.3 mmol/L [facility] CHLORIDE 97(L) 98 - 110 mmol/L [facility] CARBON DIOXIDE 34(H) 20 - 32 mmol/L [facility] [place] [facility] CALCIUM 9.5 8.6 - 10.3 mg/dL [facility] PROTEIN, TOTAL 7.5 6.1 - 8.1 g/dL [facility] ALBUMIN 4.2 3.6 - 5.1 g/dL [facility] [place] [facility] GLOBULIN 3.3 1.9 - 3.7 g/dL (calc) [facility] ALBUMIN/GLOBULI N RATIO 1.3 1.0 - 2.5 (calc) [facility] [place] [facility] BILIRUBIN, TOTAL 1.1 0.2 - 1.2 mg/dL [facility] ALKALINE PHOSPHATASE 78 35 - 144 U/L [facility] AST 19 10 - 35 U/L [facility] ALT 26 9 - 46 U/L [facility] Blood Blood / Unknown 10/15/2024 8 :38 AM EST 10/15/2024 8:39 AM EST us Rose Mary Barnes PA-C LAB - BLOOD DRAW Edited Resu lt - Final [employer] [address] [address], [facility] [address] [address] * RPR (DIAGNOSIS) WITH REFLEX TO TITER AND CONFIRMATORY TESTING (01/10/2024 9:15 AM EDT) RPR (DX) W/REFL TITER AND CONFIRMATORY TESTING NON-REACT LYNDON NON-REACT LYNDON [facility] Comment: No laboratory evidence of syphilis. If recent exposure is suspected, submit a new sample in 2-4 weeks. Serum Blood / Unknown 01/10/2024 9 :15 AM EDT 01/10/2024 9:16 AM EDT Narrative [facility] [employer] - 01/11/2024 9:55 AM EDT SPLIT 01/09/2024 FROM [id number] FASTING:YES us Rose Mary Barnes PA-C LAB - BLOOD DRAW Final Resul t [facility]3 [address] [place] [id number], [facility] [address] [place] [phone] * HIV 1/2 AG & AB W/RFLX (4TH GEN) (01/10/2024 9:15 AM EDT) HIV AG/AB, 4TH GEN NON-REAC TIVE NON-REAC TIVE [facility] Comment: HIV-1 antigen and HIV-1/HIV-2 antibodies were [...] ?? For additional information please refer to http://education.Flywheel/faq/SSW736 (This link is being provided for informational/ educational purposes only.) The performance of this assay has not been clinically validated in patients less than 2 years old. Blood Blood / Unknown 01/10/2024 9 :15 AM EDT 01/10/2024 9:16 AM EDT Narrative [facility] - 01/11/2024 9:55 AM EDT SPLIT 01/09/2024 FROM [id number] FASTING:YES us Rose Mary Barnes PA-C LAB - BLOOD DRAW Final Resul t Performing Organization Address City/[facility]/ZIP Co de Phone Number [facility]SO[facility] [address] [address], [facility] [address] [place] [address] * REFERRAL FOR COLONOSCOPY (04/19/2022 3:00 AM EDT) 04/19/2022 3:00 AM EDT us Rose Mary Barnes PA-C REFERRAL Edited Resul t - Final * HEPATITIS C AB W/RFLX HCV RNA, QT, RT PCR (12/15/2020 9:14 AM EDT) HEPATITIS C ANTIBODY NON-REACT LYNDON NON-REACT LYNDON [facility] SIGNAL TO CUT-OFF 0.28 <1.00 [facility] Comment: HCV antibody was non-reactive. There is no laboratory evidence of HCV infection. In most cases, no further action is required. However, if recent HCV exposure is suspected, a test for HCV RNA (test code 31991) is suggested. For additional information please refer to http://education.Flywheel/faq/VAI90i7 (This link is being provided for informational/ educational purposes only.) Blood Blood / Unknown 12/15/2020 9 :14 AM EDT 12/15/2020 9:15 AM EDT us Rosy LINARES LAB - BLOOD DRAW Final Result Performing Organization Address City/[facility]/ZIP Co de Phone Number [facility]SO[facility] [address] [address], [facility] [address] [address] from Last 3 Months or Most Recently Relevant to Health Maintenance Insurance [employer] [place] MED[place] DENTAL Care Teams Night Nurse Relationship Specialty Start Date End Date Rose Mary Barnes PA-C [address] [place] [address] PCP - General FAMILY MEDICINEEAN 08/10/21
--- OUTSIDE RECORDS SUMMARY | 2024-11-14 08:25 | XMS_ITS | Encounter Summary ---
Author Organization [facility] Address [address] [place] [address] Care Team Providers Care Pilot Control Operator Helper Name Role Phone Rose Mary Barnes PA-C Primary Care Provider + [phone] Reason for Visit * Reason Comments Dental Hygiene/ Preventive Encounter Details Date Type Department Care Team ([facility] st Contact Info) Description 10/24/2024 9:00 AM EST Office Visit [facility] [address] [place] [phone] Luiza Garza [address] [place] [address] Encounter for dental examination (Primary Dx) Social [...] year old male, presents alone for prophy. Agile Business Analyst: No Chief Complaint Patient presents with Dental [...] Billing provider: GERARDO Washington completed with ultrasonic lease out worker, hand scaling, coronal polishing, and floss OHI & Nutrition counseling provided, discussed: Proper brushing technique, Proper flossing technique, reviewed brushing technique. OHI given . Pt handled tx very well. Left satisfied. Post-Op Information Given: verbal Behavior: Excellent [place]: Recall uLiza Garza [facility]/ Dr Patino documented in this encounter Miscellaneous [...] Description 11/17/2024 11:20 AM EDT Telemedicine Visit [facility] [address] [place] [phone] Rose Mary Barnes PA-C [address] [facility]. [place], [place] [address] 04/24/2025 1:00 PM EDT Office Visit [facility] [address] [place] [address] Luiza Garza [address] [place] [address] documented as of this encounter Procedures Procedure [...] documented as of this encounter Care Teams Pilot Control Operator Helper Relationship Specialty Start Date End Date Rose Mary Barnes PA-C [address] [place] [address] PCP - General FAMILY MEDICINE, [place] 08/10/21 documented as of this encounter
--- OUTSIDE RECORDS SUMMARY | 2024-11-14 08:25 | XMS_ITS | Clinical Summary ---
Author Organization [address] [place] [address] [place] [phone] Phone Care Team Providers Care Metal Turner Name Role Phone Rose Mary Barnes Primary Care Provider [phone] Immunizations Name Administration Dates Next Due Moderna SARS-CoV-2 COVID-19, mRNA, LNP-S, preservative free 09/17/2021,01/20/2021,12/25/2020 Surgical History Surgery Date Site/Laterality Comments OTHER SURGICAL HISTORY 02/22/2021 N/A PROCEDURE: [place] RPR UMBILICAL HRNA 5 YRS/> REDUCIBLE; COMMENT: open umbilical hernia repair with mesh - Teagan Jamil Social History Tobacco Use Types Packs/Day Years [...] on patient's age to complete this topic Insurance MEDICAID - [place] Care Teams Metal Turner Relationship Specialty Start Date End Date Rose Mary Barnes PA [address] [place] [address] PCP - General 07/29/24
== END 2024-11-14 08:47 | disposition home or self-care (01) ==
LOC: HO.HOS 08:15
PROVIDERS: PCP Internal Medicine Hematology & Oncology
DX: M67.442 Ganglion, left hand (principal)
CPT/HCPCS: 99214

== ENCOUNTER → 2024-11-14 08:14 | Outpatient (BNVA) | payer MEDICAID, SELFPAY | PROVIDERS: PCP Internal Medicine Hematology & Oncology | DX: M67.442 Ganglion, left hand (principal) | CPT/HCPCS: 99212 ==

== ENCOUNTER 2024-12-08 14:51 | Outpatient (AMB) | payer MEDICAID, SELFPAY ==
--- NOTE | 2024-12-08 14:55 | MHC.OFFVIS ---
Intake Visit Reasons: OV-MRI review LT Knee Intake Note: Manjinder is a 49 year old male who presents today for an MRI review of his left knee. At patient last visit an MRI of left knee was ordered due to ongoing pain with twisting pivoting motions. Allergies Penicillins Allergy (Verified 11/14/24 08:20) Unknown HPI HPI OV-MRI review LT Knee: Details: Manjinder is a 49 year old male who presents today for an MRI review of his left knee. At patient last visit an MRI of left knee was ordered due to ongoing pain with twisting and pivoting motions. He states he has pain when he initiates movement and he has pain with stairs. Most of the sharp pain is medial but there is anterior pain present with stair climbing. He had an MRI and is here today for review. He states he may have had a meniscus surgery on his left knee but it is very unclear. That would have been in the remote past. Today he just describes pain in the medial aspect of his left knee. [facility] Medical History Anxiety Depression GERD (gastroesophageal reflux disease) Hypercholesteremia Hypothyroid Surgical History History of surgery on lower extremity Hx of thyroidectomy Social History Are you a primary primary care pediatrician to a significant other at home: No Do you presently have visiting nurse or other home services: No Patient Tobacco Use Status: Never used Tobacco Current occupational status: unemployed Current occupation: right hand dominant Physical Exam Extrem Other: Left knee with prominent tibial tubercle 2/2 [place] S. There a ttp over the medial joint line and there is a + medial Steinmen's. There is no effusion and there is full ROM with discomfort with terminal flexion. Results Reviewed Results Reviewed: I personally reviewed the MR images. IMPRESSION: 1. Complex degenerative tear of the posterior horn of the medial meniscus. 2. Thinning of the articular cartilage in the medial compartment with minor osteoarthritic changes. 3. 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 4. Small joint effusion. 5. Chronic changes related patellofemoral articular cartilage as above. Assessment & Plan Assessment & Plan (1) Tear of medial meniscus of left knee: Code(s): S83.242A - Other tear of medial meniscus, current injury, left knee, initial encounter Category: Medical Plan: This is an active 49 yo M with a large medial meniscus tear in the setting of mild PF OA. He has sharp medial pain but also some anterior pain with stairs. He is not improving and has failed conservative measures. He talks about a prior meniscus surgery on this knee but his MRI suggests otherwise. There is a large medial meniscus tear. I discussed the surgery with him. I discussed the risk of infection, stiffness, incomplete symptom resolution, pain, need for further surgery. He expressed understanding and we will proceed forward accordingly. Coding Level of Care Code Est Pt Level 4 (68348) Diagnoses Tear of medial meniscus of left knee S83.242A
--- OUTSIDE RECORDS SUMMARY | 2024-12-08 17:45 | XMS_ITS | Clinical Summary ---
Author Organization [address] [place] [address] Address [address] [place] [address] Phone Care Team Providers Care Ross Carrier Driver Name Role Phone Rose Mary Barnes Primary Care Provider [phone] Immunizations Name Administration Dates Next Due Moderna SARS-CoV-2 COVID-19, mRNA, LNP-S, preservative free 09/17/2021,01/20/2021,12/25/2020 Surgical History Surgery Date Site/Laterality Comments OTHER SURGICAL HISTORY 02/22/2021 N/A PROCEDURE: CO RPR UMBILICAL HRNA 5 YRS/> REDUCIBLE; COMMENT: [...] age to complete this topic Meningococcal B Vaccine Aged Out No l onger eligible based on patient's age to complete [...] to complete this topic Insurance MEDICAID - [place] Care Teams Ross Carrier Driver Relationship Specialty Start Date End Date Rose Mary Barnes PA [address] [place] [address] PCP - General 07/29/24
--- OUTSIDE RECORDS SUMMARY | 2024-12-08 17:45 | XMS_ITS | Clinical Summary ---
Author Organization [facility] Address [address] [place] [address] Care Team Providers Care Electromechanic Name Role Phone Rose Mary Barnes PA-C Primary Care Provider [phone] Source Comments PLEASE NOTE, if this patient [...] daily 90 Tablet 1 04/29/20 24 Active tadalafiL (CIALIS) 20 mg tabletIndicatio [...] ACOSTARSE 90 Tablet 1 11/12/19 25 Active levothyroxine 150 mcg tabletIndicatio ns:Hypothyroidi sm, unspecified type TOME 1 TABLETA POR VIA ORAL TODOS LOS LYNNE ANTES DEL DESAYUNO 90 Tablet 1 12/03/19 25 Active atorvastatin (LIPITOR) 10 mg tabletIndicatio ns:Prediabetes, Mixed hyperlipidemia, Essential hypertension Take 1 Tablet by mouth nightly at bedtime 90 Tablet 1 05/19/20 24 025 Discontinued levothyroxine 150 mcg tabletIndicatio ns:Hypothyroidi sm, unspecified type Take 1 Tablet by mouth every morning before breakfast 90 Tablet 1 06/01/20 24 025 Discontinued Active Problems Problem Noted [...] 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 Whole body radioiodine scan (post [...] Encounters Date Type Department Care Team Description 11/24/2024 8:00 AM EDT Telemedicine Visit [facility] [address] [place] [phone] Rose Mary Barnes PA-C Nasal polyp (Primary Dx) 10/24/2024 9:00 AM EST Office Visit [facility] [address] [place] [phone] Luiza Garza Encounter for dental examination (Primary Dx) 09/16/2024 11:20 AM EST Office Visit [facility] [address] [place] [phone] Rose Mary Barnes PA-C Prediabetes (Primary Dx); Mixed hyperlipidemia; Immunization due 09/16/2024 Travel from Last 3 Months Immunizations Immunization Administration Dates Next Due Flu, Preservative Free 09/17/2021,06/04/2020, HEP A-HEP B 06/15/2023,12/08/2022,11/10/2022 INFLUENZA, SEASONAL, INJECTABLE 08/29/2023,09/17 Influenza (FLUBLOK),recombinant,injectable,preservati ve Free 06/05/2024 MODERNA COVID-19 VACCINE BIV ALENT, BLUE CAP, 6M+ 11/10/2022 Moderna COVID-19 (Spikevax), Mrna, Lnp-s, Pf, 50 Mcg/0.5 Ml, 12yr+ 01/09/2024 Moderna COVID-19 Vaccine, re d cap blue label, 12+ Primary Series 09/17/2021,01/20/2021,12/25/2020 TDAP 10/17/2018 ZOSTER VACCINE, RECOMBINANT (SHINGRIX) 5,04/10/2024 Social History Tobacco Use Types Packs/Day Years Used Date Smoking Tobacco: Never Smokeless Tobacco: Never Tobacco Cessation:Counseling Given: Not Answered Alcohol Use Standard Drinks/Week Comments No 0 [...] EST Temperature 36.4 ??C (97.5 ??F) 09/16/2024 11:[address] Respiratory Rate 18 09/16/2024 11:49 AM EST Oxygen Saturation 97% 09/16/2024 11:49 AM EST Inhaled Oxygen Concentration - - Weight 103.4 kg (228 lb) 11/24/2024 8:16 AM EDT Height 182.9 cm (6') 11/24/2024 8:16 AM EDT Body Mass Index 30.92 11/24/2024 8:16 AM EDT Plan of Treatment Upcoming Encounters Date Type Department Care Team (Late st Contact Info) Description 04/24/2025 1:00 PM EDT Office Visit [address] [phone] Luiza Garza [address] [place] [address] Health Maintenance Due Date Last Done Comments Anxiety Screening 1974 CT Colonography 2019 FIT/gFOBT 2019 Fecal DNA 2019 Flexible Sigmoidoscopy 2019 Depression Monitoring 12/15/2024 09/16/2024 , 06/05/2024, 04/10/2024, Additional history exists [id number] ( season) 2024 01/09/2024, 11/10/2022, 09/17/2021, Additional [...] Procedure Name Priority Date/Time Associated Diagnosis Comments HEALTH HISTORY SCANNED DOCUMENT 11/12/2024 3:00 AM EDT REFERRAL SCANNED DOCUMENT 11/04/2024 3:00 AM EST [...] Recently Relevant to Health Maintenance Results * HEALTH HISTORY SCANNED DOCUMENT (11/12/2024 3:00 AM EDT) 11/12/2024 3:00 AM EDT [facility] Provider Default SCAN OTHER ORDERS Final Re sult * REFERRAL SCANNED DOCUMENT (11/04/2024 3:00 AM EST) Only the most recent of2 resultswithin the time period is included. 11/04/2024 3:00 AM EST Rose Mary Barnes PA-C SCAN REFERRAL Final Result * BLOOD COUNT COMPLETE AUTO&AUTO DIFRNTL WBC (10/15/2024 8:38 AM EST) WHITE BLOOD CELL COUNT 8.9 3.8 - 10.8 Thousand/ uL [facility] RED BLOOD CELL COUNT 5.06 4.20 - 5.80 Million/u L [id number] [facility] HEMOGLOBIN 15.3 13.2 - 17.1 g/dL [id number] [facility] HEMATOCRIT 45.8 38.5 - 50.0 % [facility] MCV 90.5 80.0 - 100.0 fL [employer] MCH 30.2 27.0 - 33.0 pg [employer] MCHC 33.4 32.0 - 36.0 g/dL [employer] Comment: For adults, a slight decrease in the calculated MCHC value (in the range of 30 to 32 g/dL) is most likely not clinically significant; however, it should be interpreted with caution in correlation with other red cell parameters and the patient's clinical condition. RDW 13.8 11.0 - 15.0 % [employer] PLATELET COUNT 287 140 - 400 Thousand/ uL [employer] MPV 10.2 7.5 - 12.5 fL [employer] ABSOLUTE NEUTROPHILS 6,470 1,500 - 7,800 cells/uL [employer] ABSOLUTE LYMPHOCYTES 1,566 850 - 3,900 cells/uL [employer] ABSOLUTE MONOCYTES 757 200 - 950 cells/uL [employer] ABSOLUTE EOSINOPHILS 80 15 - 500 cells/uL [employer]. ABSOLUTE BASOPHILS 27 0 - 200 cells/uL [employer] NEUTROPHILS PCT 72.7 % [employer] LYMPHOCYTES 17.6 % [facility] MONOCYTES 8.5 % [facility] EOSINOPHILS 0.9 % [facility] BASOPHILS 0.3 % [facility] Blood Blood / Unknown 10/15/2024 8 :38 AM EST 10/15/2024 8:39 AM EST Rose Mary Barnes PA-C LAB - BLOOD DRAW Edited Resu lt - Final [place] [address] [address], [employer] [address] [place] [address] * (ABNORMAL) HEMOGLOBIN GLYCOSYLATED A1C (10/15/2024 8:38 AM EST) HEMOGLOBIN A1C 6.0(H) <5.7 % of total Hgb [employer] Comment: For someone without known diabetes, a [...] LAB - BLOOD DRAW Final Resul t [id number] [address], [id number] [address] * (ABNORMAL) LIPID PANEL (10/15/2024 8:38 AM EST) [facility] Signature CHOLESTEROL, TOTAL 159 <200 mg/dL [facility] HDL CHOLESTEROL 37(L) > OR = 40 mg/dL [employer] TRIGLYCERIDES 119 <150 mg/dL [employer] LDL-CHOLESTEROL 100(H) 99 mg/dL (calc) [employer] Comment: Reference range: <100 Desirable range <100 mg/dL for primary prevention; ?? <70 mg/dL for patients with CHD or diabetic patients with > or = 2 CHD risk factors. LDL-C is now calculated using the Hector-Lena calculation, which is a validated novel method providing better accuracy than the Friedewald equation in the estimation of LDL-C. Hector LOMBARDO et al. RAAD. 2013;310(19): 5629-5624 (http://education.Socius.Affinnova/faq/QPY711) CHOL/HDLC RATIO 4.3 <5.0 (calc) [employer] NON-HDL CHOLESTEROL 122 <130 mg/dL (calc) [employer] Comment: For patients with diabetes plus 1 major ASCVD risk factor, treating to a non-HDL-C goal of <100 mg/dL (LDL-C of <70 mg/dL) is considered a therapeutic option. Blood Blood / Unknown 10/15/2024 8 :38 AM EST 10/15/2024 8:39 AM EST us Rose Mary Barnes PA-C LAB - BLOOD DRAW Final Resul t [place] [address] [address], [employer] [address] [place] [address] * (ABNORMAL) COMPREHENSIVE METABOLIC PANEL (10/15/2024 8:38 AM EST) GLUCOSE 104(H) 65 - 99 mg/dL [employer] Comment: ?Fasting reference interval For someone without known diabetes, a glucose value between 100 and 125 mg/dL is consistent with prediabetes and should be confirmed with a follow-up test. UREA NITROGEN (BUN) 15 7 - 25 mg/dL [employer] CREATININE (blood) 0.82 0.70 - 1.30 mg/dL [employer] EGFR 107 > OR = 60 mL/min/1. 73m2 [employer] BUN/CREATININE RATIO SEE NOTE: [employer] Comment: ?? Not Reported: BUN and Creatinine are within ?? reference range. ? SODIUM 137 135 - 146 mmol/L [employer] POTASSIUM 3.6 3.5 - 5.3 mmol/L [employer] CHLORIDE 97(L) 98 - 110 mmol/L [employer] CARBON DIOXIDE 34(H) 20 - 32 mmol/L [employer] CALCIUM 9.5 8.6 - 10.3 mg/dL [employer] PROTEIN, TOTAL 7.5 6.1 - 8.1 g/dL [employer] ALBUMIN 4.2 3.6 - 5.1 g/dL [employer] GLOBULIN 3.3 1.9 - 3.7 g/dL (calc) [employer] ALBUMIN/GLOBULI N RATIO 1.3 1.0 - 2.5 (calc) [employer] BILIRUBIN, TOTAL 1.1 0.2 - 1.2 mg/dL [employer] ALKALINE PHOSPHATASE 78 35 - 144 U/L [employer] AST 19 10 - 35 U/L [employer] ALT 26 9 - 46 U/L [employer] Blood Blood / Unknown 10/15/2024 8 :38 AM EST 10/15/2024 8:39 AM EST us Rose Mary Barnes PA-C LAB - BLOOD DRAW Edited Resu lt - Final Performing Organization Address [facility] Co de Phone Number [id number] [address], [id number] [address] * RPR (DIAGNOSIS) WITH REFLEX TO TITER AND CONFIRMATORY TESTING (01/10/2024 9:15 AM EDT) RPR (DX) W/REFL TITER AND CONFIRMATORY TESTING NON-REACT LYNDON NON-REACT LYNDON [facility] Comment: No laboratory evidence of syphilis. If recent exposure is suspected, submit a new sample in 2-4 weeks. Serum Blood / Unknown 01/10/2024 9 :15 AM EDT 01/10/2024 9:16 AM EDT Narrative [place] - 01/11/2024 9:55 AM EDT SPLIT 01/09/2024 FROM [id number] FASTING:YES us Rose Mary Barnes PA-C LAB - BLOOD DRAW Final Resul t Performing Organization Address [facility] Co de Phone Number [id number] [address], [id number] [address] * HIV 1/2 AG & AB W/RFLX (4TH GEN) (01/10/2024 9:15 AM EDT) HIV AG/AB, 4TH GEN NON-REAC TIVE NON-REAC TIVE [facility] Comment: HIV-1 antigen and HIV-1/HIV-2 antibodies [...] ?? For additional information please refer to http://Baojia.com.Microlaunchers/faq/DPF282 (This link is being provided for informational/ educational purposes only.) The performance of this assay has not been clinically validated in patients less than 2 years old. Blood Blood / Unknown 01/10/2024 9 :15 AM EDT 01/10/2024 9:16 AM EDT Narrative [place] - 01/11/2024 9:55 AM EDT SPLIT 01/09/2024 FROM [id number] FASTING:YES us Rose Mary Barnes PA-C LAB - BLOOD DRAW Final Resul t [place] [address] [place] [address], [employer] [address] [place] [phone] * REFERRAL FOR COLONOSCOPY (04/19/2022 3:00 AM EDT) 04/19/2022 3:00 AM EDT us Rose Mary Barnes PA-C REFERRAL Edited Resul t - Final * HEPATITIS C AB W/RFLX HCV RNA, QT, RT PCR (12/15/2020 9:14 AM EDT) HEPATITIS C ANTIBODY NON-REACT LYNDON NON-REACT LYNDON [employer] SIGNAL TO CUT-OFF 0.28 <1.00 [employer] Comment: HCV antibody was non-reactive. There is no laboratory evidence of HCV infection. In most cases, no further action is required. However, if recent HCV exposure is suspected, a test for HCV RNA (test code 95123) is suggested. For additional information please refer to http://Baojia.com.Microlaunchers/faq/PAU22k6 (This link is being provided for informational/ educational purposes only.) Blood Blood / Unknown 12/15/2020 9 :14 AM EDT 12/15/2020 9:15 AM EDT Rosy العلي SAW TAILER LAB - BLOOD DRAW Final Result [facility] [address] [facility] [address] [place] [address], [facility] [address] [address] from Last 3 Months or Most Recently Relevant to Health Maintenance Insurance [facility] [employer] [employer] [place] Care Teams Electromechanic Relationship Specialty Start Date End Date Rose Mary Barnes PA-C [address] [place] [address] PCP - General [facility] 08/10/21
== END 2024-12-08 15:10 | disposition home or self-care (01) ==
LOC: HO.HOS 14:51
PROVIDERS: PCP Internal Medicine Hematology & Oncology; Visit Provider Physician Assistant
DX: S83.242A Other tear of medial meniscus, current injury, left knee, initial encounter (principal)
CPT/HCPCS: 99214

== ENCOUNTER → 2024-12-08 14:51 | Outpatient (BNVA) | payer MEDICAID, SELFPAY | PROVIDERS: PCP Internal Medicine Hematology & Oncology; Visit Provider Physician Assistant | DX: S83.242A Other tear of medial meniscus, current injury, left knee, initial encounter (principal); X58.XXXA Exposure to other specified factors, initial encounter; Y93.9 Activity, unspecified; Y92.9 Unspecified place or not applicable; Y99.9 Unspecified external cause status | CPT/HCPCS: 99212 ==

== ENCOUNTER 2024-12-23 08:28 | Day surgery (SDC) | payer MEDICAID, SELFPAY ==
--- OUTSIDE RECORDS SUMMARY | 2024-11-14 09:41 | XMS_ITS | Encounter Summary ---
Author Organization [facility] Address [address] [place] [address] Care Team Providers Care Insulation Estimator Name Role Phone Rose Mary Barnes PA-C Primary Care Provider + [phone] Reason for Visit * Reason Comments Dental Hygiene/ Preventive Encounter Details Date Type Department Care Team ([facility] st Contact Info) Description 10/24/2024 9:00 AM EST Office Visit [facility] [address] [place] [phone] Luiza Garza [address] [place] [address] Encounter for dental examination (Primary Dx) Social [...] year old male, presents alone for prophy. Ultrasound Technician: No Chief Complaint Patient presents with Dental [...] Service provider: Luiza Garza Billing provider: Angy Paitno DDS [id number] - NUTRITIONAL COUNSELING CONTROL OF [...] Billing provider: GERARDO Washington completed with ultrasonic spine nurse, hand scaling, coronal polishing, and floss OHI & Nutrition counseling provided, discussed: Proper brushing technique, Proper flossing technique, reviewed brushing technique. OHI given . Pt handled tx very well. Left satisfied. Post-Op Information Given: verbal Behavior: Excellent [place]: Recall Luzia Garza [facility]/ Dr Patino documented in this encounter Miscellaneous [...] Description 11/17/2024 11:20 AM EDT Telemedicine Visit [facility] [address] [place] [phone] Rose Mary Barnes PA-C 532 [facility]. [place], [place] [phone] 04/24/2025 1:00 PM EDT Office Visit [facility] [address] [place] [phone] Luiza Garza [address] [place] [address] documented as of this encounter Procedures Procedure [...] documented as of this encounter Care Teams Insulation Estimator Relationship Specialty Start Date End Date Rose Mary Barnes PA-C [address] [place] [address] PCP - General FAMILY MEDICINE, [place] 08/10/21 documented as of this encounter
--- OUTSIDE RECORDS SUMMARY | 2024-11-14 09:41 | XMS_ITS | Clinical Summary ---
Author Organization [address] [place] [address] [place] [phone] Phone Care Team Providers Care Press Box Custodian Name Role Phone Rose Mary Barnes Primary Care Provider [phone] Immunizations Name Administration Dates Next Due Moderna SARS-CoV-2 COVID-19, mRNA, LNP-S, preservative free 09/17/2021,01/20/2021,12/25/2020 Surgical History Surgery Date Site/Laterality Comments OTHER SURGICAL HISTORY 02/22/2021 N/A PROCEDURE: [place] RPR UMBILICAL HRNA 5 YRS/> REDUCIBLE; COMMENT: [...] to complete this topic Insurance [place] - [place] Care Teams Press Box Custodian Relationship Specialty Start Date End Date Rose Mary Barnes PA [address] [place] [address] PCP - General 07/29/24
--- OUTSIDE RECORDS SUMMARY | 2024-11-14 09:41 | XMS_ITS | Clinical Summary ---
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 Whole body radioiodine scan (post [...] Description 10/24/2024 9:00 AM EST Office Visit [facility] [address] [place] [address] Luiza Garza Encounter for dental examination (Primary Dx) 09/16/2024 11:20 AM EST Office Visit [facility] [place] [address] Rose Mary Barnes PA-C Prediabetes [...] Description 11/17/2024 11:20 AM EDT Telemedicine Visit [facility] [address] [place] [address] Rose Mary Barnes PA-C [address] [facility] [place] [address] 04/24/2025 1:00 PM EDT Office Visit [facility] [address] [place] [id number] Luiza Garza [address] [place] [address] Health Maintenance Due Date Last Done Comments CT Colonography 2019 FIT/gFOBT 2019 Fecal DNA 2019 Flexible Sigmoidoscopy 2019 Depression Monitoring 12/15/2024 09/16/2024 , 06/05/2024, 04/10/2024, Additional history exists [id number] ( season) 2024 01/09/2024, 11/10/2022, 09/17/2021, Additional [...] COUNT 8.9 3.8 - 10.8 Thousand/ uL [facility] RED BLOOD CELL COUNT 5.06 4.20 - 5.80 Million/u L [facility] HEMOGLOBIN 15.3 13.2 - 17.1 g/dL [facility] HEMATOCRIT 45.8 38.5 - 50.0 % [facility] MCV 90.5 80.0 - 100.0 fL [facility] MCH 30.2 27.0 - 33.0 pg [facility] MCHC 33.4 32.0 - 36.0 g/dL [facility] Comment: For adults, a slight decrease in the calculated MCHC value (in the range of 30 to 32 g/dL) is most likely not clinically significant; however, it should be interpreted with caution in correlation with other red cell parameters and the patient's clinical condition. RDW 13.8 11.0 - 15.0 % [facility] PLATELET COUNT 287 140 - 400 Thousand/ uL [facility] MPV 10.2 7.5 - 12.5 fL [facility] ABSOLUTE NEUTROPHILS 6,470 1,500 - 7,800 cells/uL [facility] ABSOLUTE LYMPHOCYTES 1,566 850 - 3,900 cells/uL [facility] ABSOLUTE MONOCYTES 757 200 - 950 cells/uL [facility] ABSOLUTE EOSINOPHILS 80 15 - 500 cells/uL [facility] [place] [facility] ABSOLUTE BASOPHILS 27 0 - 200 cells/uL [facility] NEUTROPHILS PCT 72.7 % [facility] LYMPHOCYTES 17.6 % [facility] DI AGNFIGMDS [facility] MONOCYTES 8.5 % [facility] EOSINOPHILS 0.9 % [facility] AGNFIGMDS [facility] BASOPHILS 0.3 % [facility] Blood Blood / Unknown 10/15/2024 8 :38 AM EST 10/15/2024 8:39 AM EST us Rose Mary Barnes PA-C LAB - BLOOD DRAW Edited Resu lt - Final [facility] [address] [address], [facility] [address] [address] * (ABNORMAL) HEMOGLOBIN GLYCOSYLATED A1C (10/15/2024 8:38 AM EST) HEMOGLOBIN A1C 6.0(H) <5.7 % of total Hgb [facility] Comment: For someone without known diabetes, a [...] DRAW Final Resul t Performing Organization Address City/[facility]/ZIP Co de Phone Number [facility] [address] [address], [facility] [address] [address] * (ABNORMAL) LIPID PANEL (10/15/2024 8:38 AM EST) CHOLESTEROL, TOTAL 159 <200 mg/dL [facility] HDL CHOLESTEROL 37(L) > OR = 40 mg/dL [facility] TRIGLYCERIDES 119 <150 mg/dL [facility] LDL-CHOLESTEROL 100(H) 99 mg/dL (calc) [facility] Comment: Reference range: <100 Desirable range <100 mg/dL for primary prevention; ?? <70 mg/dL for patients with CHD or diabetic patients with > or = 2 CHD risk factors. LDL-C is now calculated using the Edwina calculation, which is a validated novel method providing better accuracy than the Friedewald equation in the estimation of LDL-C. Hector LOMBARDO et al. RAAD. 2013;310(19): 8547-8449 (http://education.Innovational [employer]/faq/IEC667) CHOL/HDLC RATIO 4.3 <5.0 (calc) [facility] NON-HDL CHOLESTEROL 122 <130 mg/dL (calc) [facility] Comment: For patients with diabetes plus 1 major ASCVD risk factor, treating to a non-HDL-C goal of <100 mg/dL (LDL-C of <70 mg/dL) is considered a therapeutic option. Blood Blood / Unknown 10/15/2024 8 :38 AM EST 10/15/2024 8:39 AM EST us Rose Mary Barnes PA-C LAB - BLOOD DRAW Final Resul t Performing Organization Address City/[facility]/ZIP Co de Phone Number [facility] [address] [address], [facility] [address] [address] * (ABNORMAL) COMPREHENSIVE METABOLIC PANEL (10/15/2024 8:38 AM EST) GLUCOSE 104(H) 65 - 99 mg/dL [facility] Comment: ?Fasting reference interval For someone without known diabetes, a glucose value between 100 and 125 mg/dL is consistent with prediabetes and should be confirmed with a follow-up test. UREA NITROGEN (BUN) 15 7 - 25 mg/dL [facility] CREATININE (blood) 0.82 0.70 - 1.30 mg/dL [facility] EGFR 107 > OR = 60 mL/min/1. 73m2 [facility] BUN/CREATININE RATIO SEE NOTE: [facility] Comment: ?? Not Reported: BUN and Creatinine are within ?? reference range. ? SODIUM 137 135 - 146 mmol/L [facility] POTASSIUM 3.6 3.5 - 5.3 mmol/L [facility] CHLORIDE 97(L) 98 - 110 mmol/L [facility] CARBON DIOXIDE 34(H) 20 - 32 mmol/L [facility] [place] [facility] CALCIUM 9.5 8.6 - 10.3 mg/dL [facility] PROTEIN, TOTAL 7.5 6.1 - 8.1 g/dL [facility] ALBUMIN 4.2 3.6 - 5.1 g/dL [facility] [place] [facility] GLOBULIN 3.3 1.9 - 3.7 g/dL (calc) [facility] ALBUMIN/GLOBULI N RATIO 1.3 1.0 - 2.5 (calc) [facility] [place] [facility] BILIRUBIN, TOTAL 1.1 0.2 - 1.2 mg/dL [facility] ALKALINE PHOSPHATASE 78 35 - 144 U/L [facility] AST 19 10 - 35 U/L [facility] ALT 26 9 - 46 U/L [facility] Blood Blood / Unknown 10/15/2024 8 :38 AM EST 10/15/2024 8:39 AM EST us Rose Mary Barnes PA-C LAB - BLOOD DRAW Edited Resu lt - Final [facility] [address] [address], [facility] [address] [address] * RPR (DIAGNOSIS) WITH REFLEX TO TITER AND CONFIRMATORY TESTING (01/10/2024 9:15 AM EDT) RPR (DX) W/REFL TITER AND CONFIRMATORY TESTING NON-REACT LYNDON NON-REACT LYNDON [facility] Comment: No laboratory evidence of syphilis. If recent exposure is suspected, submit a new sample in 2-4 weeks. Serum Blood / Unknown 01/10/2024 9 :15 AM EDT 01/10/2024 9:16 AM EDT Narrative [facility] - 01/11/2024 9:55 AM EDT SPLIT 01/09/2024 FROM [id number] FASTING:YES us Rose Mary Barnes PA-C LAB - BLOOD DRAW Final Resul t [facility] [address] [place] [address], [facility] [address] [place] [phone] * HIV 1/2 AG & AB W/RFLX (4TH GEN) (01/10/2024 9:15 AM EDT) HIV AG/AB, 4TH GEN NON-REAC TIVE NON-REAC TIVE [facility] Comment: HIV-1 antigen and HIV-1/HIV-2 antibodies were [...] ?? For additional information please refer to http://education.911 View/faq/YWO039 (This link is being provided for informational/ educational purposes only.) The performance of this assay has not been clinically validated in patients less than 2 years old. Blood Blood / Unknown 01/10/2024 9 :15 AM EDT 01/10/2024 9:16 AM EDT Narrative [facility] - 01/11/2024 9:55 AM EDT SPLIT 01/09/2024 FROM [id number] FASTING:YES us Rose Mary Barnes PA-C LAB - BLOOD DRAW Final Resul t Performing Organization Address City/[facility]/ZIP Co de Phone Number [facility] [address] [address], [facility] [address] [place] [address] * REFERRAL FOR COLONOSCOPY (04/19/2022 3:00 AM EDT) 04/19/2022 3:00 AM EDT us Rose Mary Barnes PA-C REFERRAL Edited Resul t - Final * HEPATITIS C AB W/RFLX HCV RNA, QT, RT PCR (12/15/2020 9:14 AM EDT) HEPATITIS C ANTIBODY NON-REACT LYNDON NON-REACT LYNDON [facility] SIGNAL TO CUT-OFF 0.28 <1.00 [facility] Comment: HCV antibody was non-reactive. There is no laboratory evidence of HCV infection. In most cases, no further action is required. However, if recent HCV exposure is suspected, a test for HCV RNA (test code 02374) is suggested. For additional information please refer to http://education.911 View/faq/UBN70f5 (This link is being provided for informational/ educational purposes only.) Blood Blood / Unknown 12/15/2020 9 :14 AM EDT 12/15/2020 9:15 AM EDT us Rosy LINARES LAB - BLOOD DRAW Final Result Performing Organization Address City/[facility]/ZIP Co de Phone Number [facility] [address] [address], [employer] [facility] [address] [address] from Last 3 Months or Most Recently Relevant to Health Maintenance Insurance [id number] ACO ID MEDICAID DENTAL Care Teams Emergency Detail Driver Relationship Specialty Start Date End Date Rose Mary Barnes PA-C [address] [place] [address] PCP - General [facility]ILY MEDICINEEAN 08/10/21
[2024-12-23 09:42] VITALS: BP 106/64; PULSE 65; RESP 18; TEMP 36.8; O2SAT 96; BMI 27.0
--- NOTE | 2024-12-23 10:10 | MHC.SHP ---
Pre-Procedural Eval Section A - 24 Hr Update-Section A only Date of Service: 12/23/24 The patient is an INPATIENT: No Changes since office visit: No Cold of Flu in the past 2 weeks, No New Medical Problems, No Changes in Medication and No Patient answered all questions The patient has been examined within 24 hours of the surgical procedure. The History & Physical has been completed within 30 days and I have reviewed it.: Yes Section B - Complete if H&P > 30 days Chief Complaint: Localized swelling, mass and lump, right upper torres Allergies: Allergies Allergy/AdvReac Type Severity Reaction Status Date / Time Penicillins Allergy Unknown Verified 12/23/24 09:14 Plan Diagnosis/Plan: Unchanged I have reviewed the history and physical and performed a pertinent physical examination on my patient. No changes have occurred unless specified. Time Spent With Patient Time: Total time managing care of this patient today ____ minutes.
--- NOTE | 2024-12-23 10:11 | P.OP_ITS ---
Operative Note Operative Note Date of Service: 12/23/24 Narrative: Preop diagnosis: 1. Left Carpal tunnel syndrome 2. Left thumb dorsal IP joint ganglion Postop diagnosis: same Procedure: 1. Left Carpal tunnel release 2. Left thumb dorsal ganglion excision Surgeon: Carolyn Cortez MD Research And Evaluation Analyst: Guille MCKOY Anesthesia: local block using 1% lidocaine with epinephrine Findings: Thickened transverse carpal ligament. EBL: Less than 5 mL Specimens: Left thumb dorsal IP ganglion sent for pathology Complications: None Disposition: Brought to recovery room in stable condition Plan: Follow-up for 10-14 days for wound check, check pathology and suture removal Indications: The patient is 49 years old, with left carpal tunnel syndrome and a ganglion cyst on the dorsal aspect of the left thumb IP joint that have been unresponsive to nonoperative management. The risks and benefits of operative treatment including but not limited to risk of damage to blood vessels, nerves, tendons, infection, persistent pain, persistent symptoms, or possible need for additional surgery were discussed with the patient and the patient wishes to proceed with surgery. Procedure: Once consent was obtained a local block was performed using a combination of 1% lidocaine with epinephrine. The patient was then brought back to the operating suite and placed on the operative table in supine position. The left upper extremity was prepped and draped in a standard surgical fashion. I made a 2 cm dorsal longitudinal incision over the dorsal aspect of the patient's left thumb IP joint ganglion. The incision was made through the skin the subcutaneous tissues using a 15. Blade. I then carefully dissected down to the level of the ganglion. The ganglion measured approximately 1.5 cm in diameter and was found to be filled with clear viscous fluid consistent with a ganglion. The ganglion was dissected free from the surrounding tissues down to its origin in the dorsal aspect of the IP joint. The ganglion was then excised from the IP joint and removed from the patient and sent for histopathology. Once assured that we had a good block, a 2.0 cm longitudinal incision was made centered over the left carpal tunnel. The incision was made through the skin to the subcutaneous tissues using a #15 blade. Dissection was made down to the level of the transverse carpal ligament with care being taken to protect the palmar cutaneous nerve. Once the transverse carpal ligament was clearly visualized, a longitudinal incision was made in the transverse carpal ligament 1st using a #15 blade, then using tenotomy scissors under direct visualization. Care was taken to look for and protect the motor branch of the median nerve when seen in this area. Once satisfied with our carpal tunnel release and ganglion excision the wounds were copiously irrigated with normal saline and hemostasis was obtained with a brief period of local pressure. The skin edges were reapproximated with some 5.0 nylon suture material and a sterile dressing was applied. The patient appears to have tolerated the procedure well and with no complications. All digits were well vascularized at the conclusion of the case.
--- NOTE | 2024-12-23 10:29 | MHC.SHP ---
Pre-Procedural Eval Section A - 24 Hr Update-Section A only Date of Service: 12/23/24 The patient is an INPATIENT: No Changes since office visit: No Cold of Flu in the past 2 weeks, No New Medical Problems, No Changes in Medication and No Patient answered all questions The patient has been examined within 24 hours of the surgical procedure. The History & Physical has been completed within 30 days and I have reviewed it.: Yes Section B - Complete if H&P > 30 days Chief Complaint: Localized swelling, mass and lump, left, cts Allergies: Allergies Allergy/AdvReac Type Severity Reaction Status Date / Time Penicillins Allergy Unknown Verified 12/23/24 09:14 Plan Diagnosis/Plan: Unchanged I have reviewed the history and physical and performed a pertinent physical examination on my patient. No changes have occurred unless specified. Time Spent With Patient Time: Total time managing care of this patient today ____ minutes.
[2024-12-23 11:12] VITALS: BP 99/58; PULSE 61; RESP 18; TEMP 37; O2SAT 96
== END 2024-12-23 11:16 | disposition home or self-care (01) ==
PROVIDERS: PCP Internal Medicine Hematology & Oncology; Visit Provider Orthopaedic Surgery
PROC: (CPT 26160; principal; 2024-12-23 11:30)
PROC: (CPT 64721; 2024-12-23 11:30)
DX: M67.442 Ganglion, left hand (principal); G56.02 Carpal tunnel syndrome, left upper limb; E78.00 Pure hypercholesterolemia, unspecified; E03.9 Hypothyroidism, unspecified; K21.9 Gastro-esophageal reflux disease without esophagitis; F32.A Depression, unspecified; F41.9 Anxiety disorder, unspecified; Z88.0 Allergy status to penicillin
CPT/HCPCS: 26160; 64721; 88304; J0171; J2003; J2004

== ENCOUNTER → 2024-12-23 08:28 | Outpatient (BNV) | payer MEDICAID, SELFPAY | PROVIDERS: PCP Internal Medicine Hematology & Oncology; Visit Provider Orthopaedic Surgery | DX: M67.442 Ganglion, left hand (principal); G56.02 Carpal tunnel syndrome, left upper limb | CPT/HCPCS: 26160; 64721 ==

== ENCOUNTER 2025-01-07 11:21 | Outpatient (AMB) | payer MEDICAID, SELFPAY ==
--- NOTE | 2025-01-07 11:40 | A.OFFVIS_ITS ---
Intake Visit Reasons: PO LT CTR/thumb ganglion exc 12/23/24 AR Intake Note: Manjinder is a 49 year old right hand dominant male who presents today post operatively s/p left carpal tunnel release and left thumb dorsal ganglion excision DOS: by Dr Carolyn Cortez. Patient reports as of now he no longer feels numbness and tingling in the left wrist. He is concerned because he says the recovery for his left hand does not feel the same as his right hand. He reports he is having extreme sensitivity in the left hand on the carpal tunnel release incision site and reports he did not have this much pain of the right hand s/p right hand carpal tunnel release 10/06/24. He also reports he is having extreme weakness in right hand and returning numbness on the forearm. Sutures removed and steri strips applied. Patient is interested in occupational therapy. Allergies Penicillins Allergy (Verified 01/07/25 11:51) Unknown HPI HPI PO LT CTR/thumb ganglion exc 12/23/24 AR: Details: Manjinder is a 49 year old right hand dominant male who presents today post operatively s/p left carpal tunnel release and left thumb dorsal ganglion excision DOS: by Dr Carolyn Cortez. Patient reports as of now he no longer feels numbness and tingling in the left wrist. He is concerned because he says the recovery for his left hand does not feel the same as his right hand. He reports he is having extreme sensitivity in the left hand on the carpal tunnel release incision site and reports he did not have this much pain of the right hand s/p right hand carpal tunnel release 10/06/24. He also reports he is having extreme weakness in right hand and returning numbness on the forearm. Sutures removed and steri strips applied. Patient is interested in occupational therapy. [facility] Medical History Anxiety Depression GERD (gastroesophageal reflux disease) Hypercholesteremia Hypothyroid Surgical History History of surgery on lower extremity Hx of thyroidectomy Social History Are you a primary career technical education instructor to a significant other at home: No Do you presently have visiting nurse or other home services: No Patient Tobacco Use Status: Never used Tobacco Current occupational status: unemployed Current occupation: right hand dominant Review of Systems Const All systems reviewed & are unremarkable except as noted in HPI and below Physical Exam Extrem Other: Patient is alert, oriented, and in no acute distress. Neuro: Normal sensation of the tips of all digits of the left hand at this time Vascular: Cap refill brisk Pain: No tenderness to palpation of the incision site on the left thumb There is significant tenderness to even gentle palpation of the patient of the volar left wrist No pain with range of motion ROM: Patient is able to make a closed fist and extend all digits of the left hand fully Skin: Well approximated and well healing incision sites noted in the volar left wrist and dorsal left thumb No lacerations or abrasions. General: No ecchymosis, erythema, or evidence of infection. Psych: Appears grossly normal Affect normal Attitude cooperative Assessment & Plan Assessment & Plan (1) Carpal tunnel syndrome, bilateral: Code(s): G56.03 - Carpal tunnel syndrome, bilateral upper limbs Category: Medical (2) Hypersensitivity: Code(s): T78.40XA - Allergy, unspecified, initial encounter Category: Medical Plan 1. Status post left carpal tunnel release Hypersensitivity of incision site 2. Status post ganglion cyst removal of the left thumb Patient is educated about these conditions Patient is educated about the typical recovery course At this time, patient was provided with an order for occupational therapy closer to his house for desensitization and range of motion and gentle strengthening of the left hand Patient was amenable to this plan Follow-up as needed Orders: Orders OT Evaluation and Treatment Today G56.03 - Carpal tunnel syndrome, bilateral upper limbs, T78.40XA - Allergy, unspecified, initial encounter Coding Level of Care Code Global (60859) Diagnoses Carpal tunnel syndrome, bilateral G56.03 Hypersensitivity T78.40XA
--- OUTSIDE RECORDS SUMMARY | 2025-01-07 12:49 | XMS_ITS | Clinical Summary ---
Author Organization [facility] Address [address] [place] [address] Care Team Providers Care Motor Operator Name Role Phone Rose Mary Barnes PA-C Primary Care Provider [phone] Source Comments PLEASE NOTE, if this patient [...] 01/09/20 24 Active mineral oil-hydrophil petrolat (AQUAPHOR) ointmentIndicati ons:Dry skin dermatitis Apply topically 2 (two) times daily 452 g 2 04/10/20 24 Active escitalopram (LEXAPRO) 20 mg tabletIndication s:Anxiety with depression Take 1 Tablet by mouth once daily 90 Tablet 1 04/29/20 24 Active tadalafiL (CIALIS) 20 mg tabletIndication s:Other male erectile dysfunction Take 1 Tablet by mouth once daily as needed for erectile dysfunction 10 Tablet 2 06/05/20 24 Active chlorthalidone (HYGROTEN) 25 mg tabletIndication s:Essential hypertension Take 1 Tablet by mouth once daily 90 Tablet 1 08/06/20 24 Active atorvastatin (LIPITOR) 10 mg tabletIndication s:Prediabetes,Mi xed hyperlipidemia,E ssential hypertension TOME 1 TABLETA POR VIA ORAL TODOS [place] AL ACOSTARSE 90 Tablet 1 11/12/19 25 Active levothyroxine 150 mcg tabletIndication s:Hypothyroidism , unspecified type TOME 1 TABLETA POR VIA ORAL TODOS [place] ANTES DEL DESAYUNO 90 Tablet 1 12/03/19 25 Active cetirizine (ALLERGY RELIEF, CETIRIZINE,) 10 mg tabletIndication s:Environmental allergies Take 1 Tablet by mouth once daily 90 Tablet 12/11/19 25 Active omeprazole (PRILOSEC) [address] capsuleIndicatio ns:Gastroesophag eal reflux disease without esophagitis Take 1 Capsule by mouth every morning before breakfast 90 Capsule 1 12/30/19 25 Active omeprazole (PRILOSEC) [address] capsuleIndicatio ns:Gastroesophag eal reflux disease without esophagitis TAKE 1 CAPSULE BY MOUTH ONCE DAILY IN THE MORNING BEFORE BREAKFAST 90 Capsule 1 06/17/20 24 025 Discontin ued(Reord er (E-Cancel Not Sent)) ALLERGY RELIEF, CETIRIZINE, 10 mg tabletIndication s:Environmental allergies Take 1 tablet by mouth once daily 90 Tablet 08/12/20 24 025 Discontin ued(Reord er (E-Cancel Not Sent)) Active Problems Problem Noted Date Diagnosed Date [...] 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 Whole body radioiodine scan (post [...] Description 11/24/2024 8:00 AM EDT Telemedicine Visit [facility] [address] [place] [address] Rose Mray Barnes PA-C Nasal polyp (Primary Dx) 10/24/2024 9:00 AM EST Office Visit [facility] [address] [place] [address] Luiza Garza Encounter for dental examination (Primary Dx) from Last 3 Months Immunizations Immunization Administration Dates Next Due Flu, Preservative Free 09/17/2021,06/04/2020, HEP A-HEP B (TWINRIX) 06/15/2023,12/08/2022,11/01 INFLUENZA, SEASONAL, INJECTABLE 08/29/2023,09/17 Influenza (FLUBLOK),recombinant,injectable,preservati ve [...] Description 04/24/2025 1:00 PM EDT Office Visit [address] [phone] Luiza Garza [address] [place] [address] Health Maintenance Due Date Last Done Comments Anxiety Screening 1974 09/16/2024 CT Colonography 2019 FIT/gFOBT 2019 Fecal DNA 2019 Flexible Sigmoidoscopy 2019 [id number] ( season) 2024 01/09/2024, 11/10/2022, 09/17/2021, Additional history exists Depression Monitoring 12/15/2024 09/16/2024 , 06/05/2024, 04/10/2024, Additional history exists HIV Screening 01/09/2025 01/10/2024, 12/03, 11/01/2022, Additional history exists Syphilis Screening 01/09/2025 01/10/2024, 0 12/29/2022, 11/01/2022 Annual Preventive Care Visit 04/10/202504/2024, 10/25/2022, 01/18/2021, Additional history exists Tobacco Screening 04/10/2025 04/10/2024 Dental Perio Charting 04/12/2025 04/10/2024 , 01/09/2023, 02/14/2022 Diabetes Screening 10/15/2025 10/15/2024, 0 10/15/2024, 05/02/2024, Additional history exists Lipid Screening 10/15/2025 10/15/2024, 08, 01/10/2024, Additional history exists Dental BW 10/26/2025 10/24/2024, 08/0 04/2024, 10/11/2023, Additional history exists Dental Examination 10/26/2025 10/24/2024, 0 04/10/2024, 10/11/2023, Additional history exists Dental Prophy 10/26/2025 10/24/2024, 08/0 04/2024, 10/11/2023, Additional history exists Imm-DTaP/Tdap/Td (2 - Td or Tdap) 10/17/2028 019 Dental FMX/Pano 07/13/2029 07/11/2024, 01/09/2023 Colonoscopy 04/19/2032 [...] 3:00 AM EDT) 11/12/2024 3:00 AM EDT [facility] Provider Default SCAN OTHER ORDERS Final Re sult * REFERRAL SCANNED DOCUMENT (11/04/2024 3:00 AM EST) Only the most recent of2 resultswithin the time period is included. 11/04/2024 3:00 AM EST Rose Mary Barnes PA-C SCAN REFERRAL Final Result * BLOOD COUNT COMPLETE AUTO&AUTO DIFRNTL WBC (10/15/2024 8:38 AM EST) Pathologist [facility] WHITE BLOOD CELL COUNT 8.9 3.8 - 10.8 Thousand/ uL [employer] [facility] RED BLOOD CELL COUNT 5.06 4.20 - 5.80 Million/u L [employer] [facility] HEMOGLOBIN 15.3 13.2 - 17.1 g/dL [employer] [facility] HEMATOCRIT 45.8 38.5 - 50.0 % [employer] [facility] MCV 90.5 80.0 - 100.0 fL [employer] [facility] MCH 30.2 27.0 - 33.0 pg [employer] [facility] MCHC 33.4 32.0 - 36.0 g/dL [facility] Comment: For adults, a slight decrease in the calculated MCHC value (in the range of 30 to 32 g/dL) is most likely not clinically significant; however, it should be interpreted with caution in correlation with other red cell parameters and the patient's clinical condition. RDW 13.8 11.0 - 15.0 % [facility] PLATELET COUNT 287 140 - 400 Thousand/ uL [employer] MPV 10.2 7.5 - 12.5 fL [facility] [employer] ABSOLUTE NEUTROPHILS 6,470 1,500 - 7,800 cells/uL [facility] ABSOLUTE LYMPHOCYTES 1,566 850 - 3,900 cells/uL [facility] ABSOLUTE MONOCYTES 757 200 - 950 cells/uL [facility] ABSOLUTE EOSINOPHILS 80 15 - 500 cells/uL [facility] ABSOLUTE BASOPHILS 27 0 - 200 cells/uL [facility] NEUTROPHILS PCT 72.7 % [employer] LYMPHOCYTES 17.6 % [facility] [employer] MONOCYTES 8.5 % [facility] [employer] EOSINOPHILS 0.9 % [facility] [employer] BASOPHILS 0.3 % [employer] [facility] Blood Blood / Unknown 10/15/2024 8 :38 AM EST 10/15/2024 8:39 AM EST us Rose Mary Barnes PA-C LAB - BLOOD DRAW Edited Resu lt - Final [facility] [address] [place] [address], [facility] [address] [place] [phone] * (ABNORMAL) HEMOGLOBIN GLYCOSYLATED A1C (10/15/2024 8:38 AM EST) HEMOGLOBIN A1C 6.0(H) <5.7 % of total Hgb [facility] Comment: For someone without known diabetes, a [...] 10/15/2024 8:39 AM EST us Rose Mary MCKOY-Belén LAB - BLOOD DRAW Final Resul t Performing Organization Address [facility]/ZIP Co de Phone Number [employer] [facility] [address] [address], [employer] [address] [address] * (ABNORMAL) LIPID PANEL (10/15/2024 8:38 AM EST) [facility] CHOLESTEROL, TOTAL 159 <200 mg/dL [employer] [facility] HDL CHOLESTEROL 37(L) > OR = 40 mg/dL [employer] [facility] TRIGLYCERIDES 119 <150 mg/dL [employer] [facility] LDL-CHOLESTEROL 100(H) 99 mg/dL (calc) [employer] [facility] Comment: Reference range: <100 Desirable range <100 mg/dL for primary prevention; ?? <70 mg/dL for patients with CHD or diabetic patients with > or = 2 CHD risk factors. LDL-C is now calculated using the Hector-Paredes calculation, which is a validated novel method providing better accuracy than the Friedewald equation in the estimation of LDL-C. Hector LOMBARDO et al. RAAD. 2013;310(19): 6702-2015 (http://education.Crowdbase.Razer/faq/LUX800) CHOL/HDLC RATIO 4.3 <5.0 (calc) [employer] [facility] NON-HDL CHOLESTEROL 122 <130 mg/dL (calc) [employer] [facility] Comment: For patients with diabetes plus 1 major ASCVD risk factor, treating to a non-HDL-C goal of <100 mg/dL (LDL-C of <70 mg/dL) is considered a therapeutic option. Blood Blood / Unknown 10/15/2024 8 :38 AM EST 10/15/2024 8:39 AM EST us Rose Mary MCKOY-C LAB - BLOOD DRAW Final Resul t Performing Organization Address City/[facility]/ZIP Co de Phone Number [employer] [facility] [address] [address], [employer] [facility] [address] [place] [address] * (ABNORMAL) COMPREHENSIVE METABOLIC PANEL (10/15/2024 8:38 AM EST) GLUCOSE 104(H) 65 - 99 mg/dL [employer] [facility] Comment: ?Fasting reference interval For someone without known diabetes, a glucose value between 100 and 125 mg/dL is consistent with prediabetes and should be confirmed with a follow-up test. UREA NITROGEN (BUN) 15 7 - 25 mg/dL [facility] CREATININE (blood) 0.82 0.70 - 1.30 mg/dL [facility] EGFR 107 > OR = 60 mL/min/1. 73m2 [facility] BUN/CREATININE RATIO SEE NOTE: [employer] [facility] Comment: ?? Not Reported: BUN and Creatinine are within ?? reference range. ? SODIUM 137 135 - 146 mmol/L [employer] [facility] POTASSIUM 3.6 3.5 - 5.3 mmol/L [facility] CHLORIDE 97(L) 98 - 110 mmol/L [facility] CARBON DIOXIDE 34(H) 20 - 32 mmol/L [facility] CALCIUM 9.5 8.6 - 10.3 mg/dL [facility] PROTEIN, TOTAL 7.5 6.1 - 8.1 g/dL [facility] ALBUMIN 4.2 3.6 - 5.1 g/dL [facility] GLOBULIN 3.3 1.9 - 3.7 g/dL (calc) [facility] ALBUMIN/GLOBULI N RATIO 1.3 1.0 - 2.5 (calc) [facility] BILIRUBIN, TOTAL 1.1 0.2 - 1.2 mg/dL [facility] ALKALINE PHOSPHATASE 78 35 - 144 U/L [facility] AST 19 10 - 35 U/L [facility] ALT 26 9 - 46 U/L [facility] Blood Blood / Unknown 10/15/2024 8 :38 AM EST 10/15/2024 8:39 AM EST Rose Mary Diaza [employer] LAB - BLOOD DRAW Edited Resu lt - Final Performing Organization Address [facility]/ZIP Co de Phone Number [employer] [place] [employer] [address] [place] [address], [employer] [address] [address] * RPR (DIAGNOSIS) WITH REFLEX TO TITER AND CONFIRMATORY TESTING (01/10/2024 9:15 AM EDT) RPR (DX) W/REFL TITER AND CONFIRMATORY TESTING NON-REACT LYNDON NON-REACT LYNDON [employer] [facility] Comment: No laboratory evidence of syphilis. If recent exposure is suspected, submit a new sample in 2-4 weeks. Serum Blood / Unknown 01/10/2024 9 :15 AM EDT 01/10/2024 9:16 AM EDT Narrative [employer] - 01/11/2024 9:55 AM EDT SPLIT 01/09/2024 FROM [id number] FASTING:YES Reading Trailsanjelica Barnes [facility] LAB - BLOOD DRAW Final Resul t Performing Organization Address [facility] Co de Phone Number [employer] [address] [address], [employer] [address] [address] * HIV 1/2 AG & AB W/RFLX (4TH GEN) (01/10/2024 9:15 AM EDT) HIV AG/AB, 4TH GEN NON-REAC TIVE NON-REAC TIVE [employer] [facility] Comment: HIV-1 antigen and HIV-1/HIV-2 antibodies were [...] ?? For additional information please refer to http://education.Nexx [place]/faq/IOE573 (This link is being provided for informational/ educational purposes only.) The performance of this assay has not been clinically validated in patients less than 2 years old. Blood Blood / Unknown 01/10/2024 9 :15 AM EDT 01/10/2024 9:16 AM EDT Narrative [employer] - 01/11/2024 9:55 AM EDT SPLIT 01/09/2024 FROM [id number] FASTING:YES [employer] StephaniGetourguideanjelica Barnes PA-C LAB - BLOOD DRAW Final Resul t [facility] [address] [place] [address], [facility] [address] [place] [phone] * REFERRAL FOR COLONOSCOPY (04/19/2022 3:00 AM EDT) 04/19/2022 3:00 AM EDT [employer] StephaniGetourguideanjelica Barnes PA-C REFERRAL Edited Resul t - Final * HEPATITIS C AB W/RFLX HCV RNA, QT, RT PCR (12/15/2020 9:14 AM EDT) HEPATITIS C ANTIBODY NON-REACT LYNDON NON-REACT LYNDON [facility] SIGNAL TO CUT-OFF 0.28 <1.00 [facility] Comment: HCV antibody was non-reactive. There is no laboratory evidence of HCV infection. In most cases, no further action is required. However, if recent HCV exposure is suspected, a test for HCV RNA (test code 39437) is suggested. For additional information please refer to http://education.[employer] [place]/faq/DRK48a8 (This link is being provided for informational/ educational purposes only.) Blood Blood / Unknown 12/15/2020 9 :14 AM EDT 12/15/2020 9:15 AM EDT us Rosy العلي [employer]BILE UI DEVELOPER LAB - BLOOD DRAW Final Result [facility] [address] [facility] [address] [place] [address], [facility] [address] [address] from Last 3 Months or Most Recently Relevant to Health Maintenance Insurance [address] [employer] [place] Care Teams Motor Operator Relationship Specialty Start Date End Date Rose Mary Barnes PA-C [address] [place] [address] PCP - General FAMILY MEDICINEEAN 08/10/21
--- OUTSIDE RECORDS SUMMARY | 2025-01-07 12:49 | XMS_ITS | Clinical Summary ---
Author Organization [address] [place] [address] Address [address] [place] [address] Phone Care Team Providers Care Finance Lead Name Role Phone Rose Mary Barnes Primary Care Provider [phone] Immunizations Name Administration Dates Next Due Moderna [...] to complete this topic Insurance [place] - [place] Care Teams Finance Lead Relationship Specialty Start Date End Date Rose Mary Barnes PA [address] [place] [address] PCP - General 07/29/24
== END 2025-01-07 12:08 | disposition home or self-care (01) ==
LOC: HO.HOS 11:22
PROVIDERS: PCP Internal Medicine Hematology & Oncology
DX: G56.03 Carpal tunnel syndrome, bilateral upper limbs (principal); T78.40XA Allergy, unspecified, initial encounter
CPT/HCPCS: 99024

== ENCOUNTER → 2025-01-07 11:21 | Outpatient (BNVA) | payer MEDICAID, SELFPAY | PROVIDERS: PCP Internal Medicine Hematology & Oncology | DX: Z48.811 Encounter for surgical aftercare following surgery on the nervous system (principal); T78.40XA Allergy, unspecified, initial encounter | CPT/HCPCS: 99212 ==

== ENCOUNTER 2025-03-12 14:23 | Outpatient (AMB) | payer MEDICAID, SELFPAY ==
--- NOTE | 2025-03-12 14:34 | A.OFFVIS_ITS ---
Vital Signs 03/12/25 14:35 Height 6 ft 2 in Weight 210 lb BMI 27.0 Intake Visit Reasons: OV-Right shoulder/limited ROM Intake Note: Manjinder is a 50 year old right hand dominant male who presents today a follow up of Bilateral Shoulder Tendonitis. Last seen by TM on 06/26/24 for B/L shoulders the right was injected (80mg) & referral to physical therapy was placed. At to day's visit patient states that the B/L shoulder pain is back and that he did attend physical therapy and finished with mild relief. He added that the injection gave mild relief but wore off quickly. Wild Oyster Harvester Required: Yes Wild Oyster Harvester Name: Ja Pizano [id number] Allergies Penicillins Allergy (Verified 03/12/25 14:41) Unknown Medication List - Last Reconciled 03/12/25 by Krpua Taveras PA-C atorvastatin 10 mg PO BEDTIME cetirizine 10 mg PO DAILY chlorthalidone 25 mg PO DAILY escitalopram oxalate 20 mg PO DAILY fluticasone propionate 50 mcg/actuation 2 sprays intranasal BEDTIME hydroxyzine HCl 50 mg PO TID PRN levothyroxine 150 mcg PO DAILY lorazepam 0.5 mg PO DAILY PRN omeprazole 20 mg PO QAM HPI HPI OV-Right shoulder/limited ROM: Details: 50 yo male returns to the office today fu rt shoulder s/p injection, he states the injection only lasted a few days. He states the pain in the shoulder has gotten worse and he has completed 10 visits of PT . He c/o worsening pain with overhead work, lifting or daily activities. [facility] Medical History Anxiety Depression GERD (gastroesophageal reflux disease) Hypercholesteremia Hypothyroid Surgical History History of surgery on lower extremity Hx of thyroidectomy Social History Are you a primary career advisor to a significant other at home: No Do you presently have visiting nurse or other home services: No Patient Tobacco Use Status: Never used Tobacco Current occupational status: unemployed Current occupation: right hand dominant Review of Systems Const All systems reviewed & are unremarkable except as noted in HPI and below Physical Exam Vital Signs: BMI result Body Mass Index 27.0 Extrem Other: We will shoulders are normal to inspection. He has full range of motion bi laterally. He has a positive Esteves on the right. Positive Curry's bilaterally. Neurovascularly intact. Office Procedures AMB Joint Injection/Aspiration Joint Injection/Aspiration Primary Site: right shoulder Secondary Site: left shoulder Prep: site was prepped using aseptic technique, ethochloride spray was applied and injection warnings given Injected: 80 mg of, DepoMedrol, with 8 mL of, 1% plain lidocaine and in the subcromial space Approach Used: posterolateral Procedure: The patient tolerated the procedure well and there was some relief with the local anesthesia Coding 35819 - Glenohumeral/Tronchanteric Bursa/Intraarticular Procedure code (CPT) selection complete Assessment & Plan Assessment & Plan (1) Tendonitis of both shoulders: Code(s): M77.8 - Other enthesopathies, not elsewhere classified Category: Medical Plan: We discussed options today which include repeat injections in both shoulders today which she tolerated well. An MRI of the right shoulder has also been ordered to further evaluate the integrity of the rotator cuff given his failed conservative measures. Once the scan is complete I will contact him to discuss the next step in his treatment. Coding Level of Care Code Est Pt Level 3 (64892) Complex EM visit Add On G2211 Diagnoses Tendonitis of both shoulders M77.8 CPT Codes Coding - Joint 7: 26585 - Glenohumeral/Tronchanteric Bursa/Intraarticular ([id number])
--- OUTSIDE RECORDS SUMMARY | 2025-03-12 14:34 | XMS_ITS | Clinical Summary ---
Author Organization [facility] Address [address] [place] [address] Phone Care Team Providers Care Retail Department Supervisor Name Role Phone Rose Mary Barnes Primary Care Provider [phone] Active Problems Problem Noted Date Diagnosed Date Carpal tunnel syndrome, bilateral upper limbs Encounters Date Type Department Care Team Description 02/24/2025 4:30 PM EDT Treatment [facility] [address] [place] [phone] Loren Hagan, OT Carpal tunnel syndrome, bilateral upper limbs (Primary Dx) 02/16/2025 4:30 PM EDT Treatment [facility] [address] [phone] Loren Hagan, OT Carpal tunnel syndrome, bilateral upper limbs (Primary Dx) 02/09/2025 4:30 PM EDT Treatment [facility] [address] [phone] Loren Hagan, OT Carpal tunnel syndrome, bilateral upper limbs (Primary Dx) 02/02/2025 4:45 PM EDT Treatment [facility] [address] [phone] Loren Hagan, OT Carpal tunnel syndrome, bilateral upper limbs (Primary Dx) 01/27/2025 4:30 PM EDT Treatment [facility] [address] [phone] Loren Hagan, OT Carpal tunnel syndrome, bilateral upper limbs (Primary Dx) 01/19/2025 4:30 PM EDT Treatment [facility] [address] [phone] HaganBkon Mamie, OT Carpal tunnel syndrome, bilateral upper limbs (Primary Dx) 01/12/2025 4:30 PM EDT Evaluation [facility] [address] [phone] Loren Hagan, OT Carpal tunnel syndrome, bilateral upper limbs 01/12/2025 Plan of Care Documentation [facility] [address] [phone] from Last 3 Months Immunizations Name Administration Dates Next Due Moderna SARS-CoV-2 COVID-19, mRNA, LNP-S, preservative free 09/17/2021,01/20/2021,12/25/2020 Surgical History Surgery Date Site/Laterality Comments OTHER SURGICAL HISTORY 02/22/2021 N/A PROCEDURE: [place] RPR UMBILICAL HRNA 5 YRS/> REDUCIBLE; COMMENT: open umbilical hernia repair with mesh - Dr. Star Bean [facility] Social History Tobacco Use Types Packs/Day [...] of 1 - PCV) 01/27/2024 COVID-19 Vaccine ( season) 2024 01/09/2024, 11/10/2022, 09/17/2021, Additional history exists Influenza Vaccine (#1) 2025 , 08/29/2023, 09/17/2021, Additional history exists Depression Screening 09/16/2025 09/16/2024 Hypertension/CHF/CAD Annual BMP Blood Test 10/15/2025 10/15/2024, 05/02/2024 DTaP,Tdap,and Td Vaccines (2 - Td or Tdap) 10/17/2028 10/17/2018 Cholesterol Screening (Lipid Panel) 10/15/2029 10/15/2024, 10/15/2024, 05/02/2024, Additional history exists Hepatitis C Screening Completed 12/15/2020 Hepatitis A Vaccines Aged Out 06/15/2023, 12/08/2022, 11/10/2022 No longer eligible based on patient's age to complete this topic Hepatitis B Vaccines Completed 06/15/2023, 12/08/2022, 11/10/2022 Zoster Vaccines Completed 09/16/2024, 04/10/2024 HIB Vaccines Aged Out No longer eligi [...] 5 Years) and At-Risk Patients (6 to 49 Years) Aged Out No longer eligible based on patient's age to complete this topic RSV Immunization Patients Under 20 months Aged Out No longer eligible based on patient's age to complete this topic Varicella Vaccines Aged Out No longer eligible based on patient's age to complete this topic Goals Goal Patient Goal Type Associated Problems Recent Progress Patient-Stated? Author <enter goal here> General On track( 025 4:42 PM EDT) Yes Loren Hagan, OT Note: OT PATIENT GOAL REGAIN FULL USE BOTH HANDS WITHOUT PAIN HAS REGAINED FULL FUNCTIONAL USE DOMINANT RIGHT HAND WITH FULL ROM AND TC OPERATOR TO 70 POUNDS. CONTINUES TO HAVE LEFT HAND PAIN AT VOLAR WRIST AND SCAR DESCRIBED SHOOTING WHICH IS WORSE AT NIGHT AND AFTER HEAVY GRIPPING TASKS. HE DID REGAIN FULL ROM AND TC OPERATOR TO 45 POUNDS Insurance MEDICAID - [place] Care Teams Retail Department Supervisor Relationship Specialty Start Date End Date Rose Mary Barnes PA [address] [place] [address] PCP - General 07/29/24
--- OUTSIDE RECORDS SUMMARY | 2025-03-12 14:34 | XMS_ITS | Encounter Summary ---
Author Organization [facility] Address [address] [place] [address] Care Team Providers Care Weather Clerk Name Role Phone Rose Mary Barnes PA-C Primary Care Provider [phone] Encounter Details Date Type Department Care Team (Late st Contact Info) Description 03/12/2025 Results Follow-Up [facility] [address] [place] [phone] Rose Mary Barnes PA-C [address] [place] [address] Social History Tobacco Use Types Packs/Day Years Used Date Smoking Tobacco: Never Smokeless Tobacco: Never Alcohol Use Standard Drinks/Week Comments No 0 (1 standard drink = 0.6 oz pur e alcohol) Social Connections Answer Date Recorded How often do you feel lonely or isolated from th ose around you? 1 09/16/2024 Financial Resource Strain Answer Date R ecorded Hard to pay for: Food 1 09/16/2024 Stress Answer Date Recorded Do you feel these kinds of stress these days? 1 09/16/2024 Physical Activity Answer Date Recorded Physical Activity 0 04/28/2019 Food Insecurity Answer Date Recorded Hard to pay for: Food 1 09/16/2024 Transportation Needs Answer Date Record ed Hard to pay for: Transportation 1 09/16/2024 Housing Stability Answer Date Recorded Hard to pay for: Rent/Mortgage payment 1 09/16/2024 Safety and Environment Answer Date Robert rded Safety 1 01/09/2024 Utilities Answer Date Recorded Hard to pay for: Utilities 1 09/16 Employment Answer Date Recorded Stress 0 11/21/2021 Sex and Gender Information Value Date Recorded Sex Assigned at Male 12/07/2017 10:09 AM PDT Legal Sex Male 6:41 AM PDT Gender Identity Male 12/07/2017 10:09 AM PDT Sexual Orientation Straight 12/07/2017 10 :09 AM PDT documented as of this encounter Plan of Treatment Upcoming Encounters Date Type Department Care Team (Late st Contact Info) Description 04/24/2025 1:00 PM EDT Office Visit [address] [phone] Luiza Garza [address] [place] [address] documented as of this encounter Visit Diagnoses Diagnosis Prediabetes Other abnormal glucose Mixed hyperlipidemia Essential hypertension documented in this encounter Additional Health Concerns Assessment Noted Time PHQ-9 Depression Total Score: 0 09/16/19 25 11:49 AM PST documented as of this encounter Care Teams Weather Clerk Relationship Specialty Start Date End Date Rose Mary Barnes PA-C [address] [place] [address] PCP - General FAMILY MEDICINE PA 08/10/21 documented as of this encounter
[2025-03-12 14:35] VITALS: BMI 27.0
== END 2025-03-12 15:24 | disposition home or self-care (01) ==
LOC: HO.HOS 14:23
PROVIDERS: PCP Internal Medicine Hematology & Oncology; Visit Provider Physician Assistant
DX: M77.8 Other enthesopathies, not elsewhere classified (principal)
CPT/HCPCS: 20610; 99213

== ENCOUNTER → 2025-03-12 14:23 | Outpatient (BNVA) | payer MEDICAID, SELFPAY | PROVIDERS: PCP Internal Medicine Hematology & Oncology; Visit Provider Physician Assistant | DX: M77.8 Other enthesopathies, not elsewhere classified (principal) | CPT/HCPCS: 20610; 99212; J1010; J2003 ==

== ENCOUNTER → 2025-04-26 14:08 | Outpatient (BNV) | payer MEDICAID, SELFPAY | PROVIDERS: PCP Internal Medicine Hematology & Oncology; Visit Provider Radiology Diagnostic Radiology | DX: M75.111 Incomplete rotator cuff tear or rupture of right shoulder, not specified as traumatic (principal) | CPT/HCPCS: 73221 ==

== ENCOUNTER 2025-04-26 14:09 | Outpatient (REF) | payer MEDICAID, SELFPAY ==
--- NOTE | ~2025-04-26 | MR_ITS ---
CLINICAL HISTORY: M77.8 - Other enthesopathies, not elsewhere classified Exam: MRI of the right shoulder without intravenous contrast. Comparison: Radiographs June 26, 2024. Findings: Shallow partial-thickness articular surface tear seen of the anterior and distal fibers of the supraspinatus tendon as it inserts upon the greater tuberosity footplate. This involves less than 10% of the tendon thickness. This tear measures 6 x 4 mm in size. There is moderate to severe tendinopathy of the supraspinatus tendon with mild tendinopathy of the infraspinatus tendon. Teres minor and subscapularis tendons are intact. There is a tear of the anterior labrum extending from the 3 o'clock to 6 o'clock position. There is a 2 mm paralabral cyst. No tear of the superior labrum is identified. The tendon of the long head of the biceps is appropriately positioned within the bicipital groove. There is increased fluid within the biceps tendon sheath. Mild degenerative change of the glenohumeral joint. Type 2 acromion. Moderate degenerative change of the AC joint with juxta-articular edema. There is increased fluid within the subacromial/subdeltoid bursa. Insertional changes seen upon the greater tuberosity Impression: 1. Moderate to severe tendinopathy of the supraspinatus tendon with shallow partial-thickness articular surface tear of the distal supraspinatus tendon. No full-thickness component identified. 2. Infraspinatus tendinopathy. 3. Anteroinferior labral tear without associated Hill-Sachs lesion or bony Bankart fracture. 3. AC joint DJD with subacromial/subdeltoid bursitis. This document has been electronically signed by: Aayush Sanabria MD on 04/28/2025 07:43:08
== END 2025-04-26 14:10 | disposition home or self-care (01) ==
LOC: HO.MRI 14:09
PROVIDERS: PCP Internal Medicine Hematology & Oncology; Visit Provider Physician Assistant
DX: M77.8 Other enthesopathies, not elsewhere classified (principal)
CPT/HCPCS: 73221

== ENCOUNTER 2025-06-01 14:44 | Outpatient (AMB) | payer MEDICAID, SELFPAY ==
--- NOTE | 2025-06-01 15:06 | A.OFFVIS_ITS ---
Vital Signs 06/01/25 15:14 Height 6 ft 2 in Weight 210 lb BMI 27.0 Intake Visit Reasons: OV-Rt shoulder MRI review Intake Note: Manjinder is a 50 year old male who presents today for an MRI review of right shoulder. Patient reports last injections provided relief for about 2 days. He states he believes his pain is worse, stating pain in both shoulders radiating into his neck. Microphone Boom Operator Required: No Microphone Boom Operator Services: Microphone Boom Operator Present Microphone Boom Operator Name: Aleisha ID#[id number] Allergies Penicillins Allergy (Verified 06/01/25 15:09) Unknown HPI HPI OV-Rt shoulder MRI review: Details: 50-year-old gentleman returns to the office today for a follow-up right shoulder pain status post MRI. He had an injection which was only helpful for about 2-3 days. He also had physical therapy which was somewhat helpful but he continues to have pain with daily activities and significant weakness. [facility] Medical History Anxiety Depression GERD (gastroesophageal reflux disease) Hypercholesteremia Hypothyroid Surgical History History of surgery on lower extremity Hx of thyroidectomy Social History Are you a primary manager long term care to a significant other at home: No Do you presently have visiting nurse or other home services: No Patient Tobacco Use Status: Never used Tobacco Current occupational status: unemployed Current occupation: right hand dominant Review of Systems Const All systems reviewed & are unremarkable except as noted in HPI and below Physical Exam Vital Signs: BMI result Body Mass Index 27.0 Extrem Other: rt shoulder normal to inspection. He has full range of motion. He has a positive Esteves on the right. Positive Spencer's. Weakness and compensation on the right shoulder with empty can Neurovascularly intact. Results Reviewed Results Reviewed: Impression: 1. Moderate to severe tendinopathy of the supraspinatus tendon with shallow partial-thickness articular surface tear of the distal supraspinatus tendon. No full-thickness component identified. 2. Infraspinatus tendinopathy. 3. Anteroinferior labral tear without associated Hill-Sachs lesion or bony Bankart fracture. 3. AC joint DJD with subacromial/subdeltoid bursitis. Assessment & Plan Assessment & Plan (1) Incomplete rotator cuff tear or rupture of right shoulder, not specified as traumatic: Code(s): M75.111 - Incomplete rotator cuff tear or rupture of right shoulder, not specified as traumatic Category: Medical Plan: I discussed the case with Dr. Harvey and the patient would likely benefit from a right shoulder arthroscopy with possible rotator cuff repair. I did briefly discuss with the patient the extent of the injury along with the surgical procedure. I will have the patient return to meet with Dr. Harvey to discuss further. I did place a booking sheet to hold a date for him. Patient does express understanding. Coding Level of Care Code Est Pt Level 3 (44593) Complex EM visit Add On G2211 Diagnoses Incomplete rotator cuff tear or rupture of right shoulder, not specified as traumatic M75.111
[2025-06-01 15:14] VITALS: BMI 27.0
--- OUTSIDE RECORDS SUMMARY | 2025-06-01 16:36 | XMS_ITS | Clinical Summary ---
Author Organization [employer] [facility] Address [address] [place] [address] Care Team Providers Care Product Development Actuary Name Role Phone Unavailable Primary Care Provider Unavailabl e Encounters Date Type Department Care Team Description 03/24/2025 Population Health Risk Score [facility] (C3) Department [address] [id number] Provider, Population Health Generic from Last 3 Months Social History Tobacco Use Types Packs/Day Years Used Date Smoking Tobacco: Never Assessed Sex and Gender Information Value Date Recorded Sex Assigned at Not on file Legal Sex Male 9:32 PM EDT Gender Identity Not on file Sexual Orientation Not on file Plan of Treatment Health Maintenance Due Date Last Done Comments CT Colonography 1974 Colonoscopy 1974 Colorectal Cancer Screening 1974 Depression Screening 1974 FIT DNA/Cologuard 1974 FIT 1974 FOBT 1974 Lipid Panel 1974 SDOH Screening 1974 Sigmoidoscopy 1974 Disability Screening 1974 Alcohol/Substance Use Screening 1986 Tobacco Screening 1986 Family Planning (PISQ) 1989 Hepatitis C Screening 01/27/1992 Pneumococcal Vaccine: 50+ Years (1 of 1 - PCV) 01/27/2024 COVID-19 Vaccine ( - season) 2025 01/09/2024, 11/10/2022, 09/17/2021, Additional history exists Influenza Vaccine (#1) 2025 , 08/29/2023, 09/17/2021, Additional history exists DTaP/Tdap/Td Vaccines (2 - Td or Tdap) 10/17/2028 10/17/2018 RSV Patients and Patients Aged 60 years or older (1 - 1-dose 75+ series) 2049 Hepatitis A Vaccines Aged Out 06/15/2023, 12/08/2022, 11/10/2022 No longer eligible based on patient's age to complete this topic Hepatitis B Vaccines Completed 06/15/2023, 12/08/2022, 11/10/2022 Zoster Vaccines Completed 09/16/2024, 04/10/2024 HIV Screening Completed 03/04/2025, 10/2024, 01/10/2024, Additional history exists HIB Vaccines Aged Out [...] patient's age to complete this topic Meningococcal Vaccine Aged Out No anibal antoni eligible based on patient's age to complete this topic RSV under 20 months Aged Out No longe r eligible based on patient's age to complete this topic Rotavirus Vaccines Aged Out No longer eligible based on patient's age to complete this topic
== END 2025-06-04 16:01 | disposition home or self-care (01) ==
LOC: HO.HOS 14:44
PROVIDERS: PCP Internal Medicine Hematology & Oncology; Visit Provider Physician Assistant
DX: M75.111 Incomplete rotator cuff tear or rupture of right shoulder, not specified as traumatic (principal)
CPT/HCPCS: 99213

== ENCOUNTER → 2025-06-01 14:44 | Outpatient (BNVA) | payer MEDICAID, SELFPAY | PROVIDERS: PCP Internal Medicine Hematology & Oncology; Visit Provider Physician Assistant | DX: M25.511 Pain in right shoulder (principal); M75.111 Incomplete rotator cuff tear or rupture of right shoulder, not specified as traumatic | CPT/HCPCS: 99212 ==

== ENCOUNTER 2025-06-18 10:58 | Outpatient (AMB) | payer MEDICAID, SELFPAY ==
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
--- OUTSIDE RECORDS SUMMARY | 2025-06-18 13:55 | XMS_ITS | Clinical Summary ---
Author Organization [email or web address] [facility] Address [address] [place] [address] Care Team Providers Care Nuclear Security Officer Name Role Phone Unavailable Primary Care Provider Unavailabl e Encounters Date Type Department Care Team Description 03/24/2025 Population Health Risk Score [facility] (C3) Department [address] [address] Provider, Population Health Generic from [...]
--- OUTSIDE RECORDS SUMMARY | 2025-06-18 13:55 | XMS_ITS | Clinical Summary ---
Author Organization [address] [place] [address] [place] [phone] Phone Care Team Providers Care Sports Commentator Name Role Phone Rose Mary Barnes Primary Care Provider [phone] Active Problems Problem Noted Date Diagnosed Date Carpal tunnel syndrome, bilateral upper limbs Immunizations Immunization Administration Dates Next Due Moderna SARS-CoV-2 COVID-19, mRNA, LNP-S, preservative free 09/17/2021,01/20/2021,12/25/2020 Surgical History Surgery Date Site/Laterality Comments OTHER SURGICAL HISTORY 02/22/2021 N/A PROCEDURE: ND RPR UMBILICAL HRNA 5 YRS/> REDUCIBLE; COMMENT: [...] DOMINANT RIGHT HAND WITH FULL ROM AND SUSPECT ARTIST SUPERVISOR TO 70 POUNDS. CONTINUES TO HAVE LEFT HAND PAIN AT VOLAR WRIST AND SCAR DESCRIBED SHOOTING WHICH IS WORSE AT NIGHT AND AFTER HEAVY GRIPPING TASKS. HE DID REGAIN FULL ROM AND SUSPECT ARTIST SUPERVISOR TO 45 POUNDS Insurance MEDICAID - [place] Care Teams Sports Commentator Relationship Specialty Start Date End Date Rose Mary Barnes PA [address] [place] [address] PCP - General 07/29/24
--- OUTSIDE RECORDS SUMMARY | 2025-06-18 13:55 | XMS_ITS | Clinical Summary ---
Author Organization [facility] Address [address] [place] [address] Care Team Providers Care Pin Machine Tender Name Role Phone Rose Mary Barnes PA-C [...] daily 452 g 2 04/10/20 24 Active tadalafiL (CIALIS) 20 mg tabletIndicatio ns:Other male erectile dysfunction Take 1 Tablet by mouth once daily as needed for erectile dysfunction 10 Tablet 2 06/05/20 24 Active omeprazole (PRILOSEC) [address] capsuleIndicati ons:Gastroesoph ageal reflux disease without esophagitis Take 1 Capsule by mouth every morning before breakfast 90 Capsule 1 12/30/19 25 Active escitalopram (LEXAPRO) 20 mg tabletIndicatio ns:Anxiety with depression TOME 1 TABLETA POR VIA ORAL TODOS LOS LYNNE 90 Tablet 1 01/31/20 25 Active fluticasone (FLONASE) 50 mcg/actuation nasal spray INSTILL 2 SPRAYS INTO EACH NOSTRIL ONCE DAILY AT BEDTIME 02/13/20 25 Active azelastine (ASTELIN) 137 mcg (0.1 %) nasal spray INHALE 1 SPRAYS EACH NOSTRIL AT TWICE A DAY 02/02/20 25 Active atorvastatin (LIPITOR) 10 mg tabletIndicatio ns:Prediabetes, Mixed hyperlipidemia, Essential hypertension Take 1 Tablet by mouth nightly at bedtime. 90 Tablet 1 03/12/20 25 Active cetirizine (ZYRTEC) 10 mg tabletIndicatio ns:Environmenta l allergies Take 1 Tablet by mouth once daily. 90 Tablet 1 05/06/20 25 Active chlorthalidone (HYGROTEN) 25 mg tabletIndicatio ns:Essential hypertension Take 1 Tablet by mouth once daily. 90 Tablet 05/06/20 25 Active levothyroxine 125 mcg tabletIndicatio ns:Hypothyroidi sm, unspecified type TOME 1 TABLETA POR VIA ORAL TODOS LOS LYNNE ANTES DEL DESAYUNO 90 Tablet 06/12/20 25 Active levothyroxine 125 mcg tabletIndicatio ns:Hypothyroidi sm, unspecified type Take 1 Tablet by mouth every morning before breakfast. 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 Whole body radioiodine scan (post [...] Department Care Team Description 05/20/2025 Interim Notes [address] [phone] Bentley Bowie 05/12/2025 2:20 PM EDT Office Visit [facility] [address] [place] [phone] Esau Ngo DDS 04/27/2025 3:00 PM EDT Office Visit [address] [phone] Leatha Jones 03/19/2025 Results Follow-Up [address] [phone] Rose Mary Barnes PA-C from Last 3 [...] Care Team (Late st Contact Info) Description 07/22/2025 1:20 PM EST Office Visit [facility] [address] [place] [address] Rose Mary Barnes PA-C [address] [place], [place] [phone] 10/29/2025 11:00 AM EST Office Visit [facility] [address] [place] [address] Billy Martin RHD [address] [place] [address] Health Maintenance Due Date Last Done Comments CT Colonography 2019 FIT/gFOBT 2019 Fecal DNA 2019 Flexible Sigmoidoscopy 2019 Imm-Pneumococcal 50+ (1 of 1 - PCV) 01/27/2024 Annual Wellness (Adult): Ind icated (All Coverage) 04/10/2025 04/10/2024, 10/25/2022, 01/18/2021, Additional history exists [id number] ( season) 2025 01/09/2024, 11/10/2022, 09/17/2021, Additional history exists Imm-Influenza (#1) 2025 06/05/2024, 1 10/30/2022, 09/17/2021, Additional history exists Depression Monitoring 05/27/2025 02/24/2025 , 09/16/2024, 06/05/2024, Additional history exists Anxiety Screening 09/16/2025 09/16/2024 Diabetes Screening 03/04/2026 03/04/2025, 0 10/15/2024, 10/15/2024, Additional history exists HIV Screening 03/04/2026 03/04/2025, 0505/2024, 12/29/2022, Additional history exists Lipid Screening 03/04/2026 03/04/2025, 10/04, 05/02/2024, Additional history exists Syphilis Screening 03/04/2026 03/04/2025, 0 01/10/2024, 12/29/2022, Additional history exists Dental BW 04/29/2026 04/27/2025, 02/2 09/2024, 04/10/2024, Additional history exists Dental Examination 04/29/2026 04/27/2025, 0 10/24/2024, 04/10/2024, Additional history exists Dental Perio Charting 04/29/2026 04/27/2025 , 04/10/2024, 01/09/2023, Additional history exists Dental Prophy 04/29/2026 04/27/2025, 0209/2024, 04/10/2024, Additional history exists Tobacco Screening 05/12/2026 [...] 04/14/2025 3:18 PM EDT Hypothyroidism, unspecified type HIV 1/2 AG & AB W/RFLX (4TH GEN) Routine 03/04/2025 8:34 AM EDT Routine screening for STI (sexually transmitted infection) RPR (DIAGNOSIS) WITH REFLEX TO TITER AND CONFIRMATORY TESTING Routine 03/04/2025 8:34 AM EDT Routine screening for STI (sexually transmitted infection) COMPREHENSIVE METABOLIC PANEL Routine 03/04/2025 8:34 AM EDT Prediabetes Mixed hyperlipidemia Essential hypertension LIPIDS W RFLX TO DIRECT LDL Routine [...] REFERRAL SCANNED DOCUMENT (05/18/2025 3:00 AM EDT) 05/18/2025 3:00 AM EDT [employer] Barnes PA-C SCAN REFERRAL Final Result * IMAGING SCANNED DOCUMENT (04/26/2025 3:00 AM EDT) 04/26/2025 3:00 AM EDT [employer] Barnes PA-C SCAN IMAGING Final Result * THYROID PANEL WITH TSH Routine (04/14/2025 3:18 PM EDT) Pathologist [facility] T-3 UPTAKE 27 22 - 35 % 04/15/2025 9:26 AM EDT [facility] T-4 (THYROXINE), TOTAL 8.8 4.9 - 10.5 mcg/dL 04/15/2025 9:26 AM EDT [facility] FREE T4 INDEX (T7) 2.4 1.4 - 3.8 04/15/2025 9:26 AM EDT [facility] TSH 2.78 0.40 - 4.50 mIU/L 04/15/2025 10:04 AM EDT [facility] Blood Blood / Unknown 04/14/2025 3 :18 PM EDT 04/15/2025 7:21 AM EDT [employer] Barnes PA-C LAB - BLOOD DRAW Final Resul t [employer] [address] [place] [phone], [employer] [address] [place] [phone] * RPR (DIAGNOSIS) WITH REFLEX TO TITER AND CONFIRMATORY TESTING Routine (03/04/2025 8:34 AM EDT) [facility] RPR (DX) W/REFL TITER AND CONFIRMATORY TESTING NON-REACT LYNDON NON-REACT LYNDON [facility] Comment: No laboratory evidence of syphilis. If recent exposure is suspected, submit a new sample in 2-4 weeks. Serum Blood / Unknown 03/04/2025 8 :34 AM EDT 03/04/2025 8:35 AM EDT Narrative [facility] - 03/09/2025 1:00 PM EDT FASTING:YES Rose Mary Barnes PA-C LAB - BLOOD DRAW Final Resul t Performing Organization Address [facility] Co de Phone Number [employer] [facility] [address] [address], [employer] [address] [phone] * HIV 1/2 AG & AB W/RFLX (4TH GEN) Routine (03/04/2025 8:34 AM EDT) HIV Screen Final See Note [facility] Comment: HIV Negative HIV-1 antigen and HIV-1/HIV-2 antibodies were not detected. There is no laboratory evidence of HIV infection. HIV AG/AB, 4TH GEN NON-REACT LYNDON NON-REACT LYNDON [facility] Blood Blood / Unknown 03/04/2025 8 :34 AM EDT 03/04/2025 8:35 AM EDT Narrative [facility] - 03/09/2025 1:00 PM EDT FASTING:YES us Rose Mary Barnes PA-C LAB - BLOOD DRAW Final Resul t Performing Organization Address [facility] Co de Phone Number [employer] [facility] [address] [address], [employer] [address] [phone] * (ABNORMAL) LIPIDS W RFLX TO DIRECT LDL Routine (03/04/2025 8:34 AM EDT) CHOLESTEROL, TOTAL 196 <200 mg/dL [facility] HDL CHOLESTEROL 34(L) > OR = 40 mg/dL [facility] TRIGLYCERIDES 106 <150 mg/dL [facility] LDL-CHOLESTEROL 140(H) 99 mg/dL (calc) [facility] Comment: Reference range: <100 Desirable range <100 mg/dL for primary prevention; <70 mg/dL for patients with CHD or diabetic patients with > or = 2 CHD risk factors. LDL-C is now calculated using the Edwina calculation, which is a validated novel method providing better accuracy than the Friedewald equation in the estimation of LDL-C. Hector LOMBARDO et al. RAAD. 2013;310(71): 3578-5685 (http://education.Predect/faq/MJJ854) CHOL/HDLC RATIO 5.8(H) <5.0 (calc) [facility] NON-HDL CHOLESTEROL 162(H) <130 mg/dL (calc) [facility] Comment: For patients with diabetes plus 1 major ASCVD risk factor, treating to a non-HDL-C goal of <100 mg/dL (LDL-C of <70 mg/dL) is considered a therapeutic option. Blood Blood / Unknown 03/04/2025 8 :34 AM EDT 03/04/2025 8:35 AM EDT Narrative [facility] - 03/09/2025 1:00 PM EDT FASTING:YES us Rose Mary Barnes PA-C LAB - BLOOD DRAW Final Resul t [employer] [address] [place] [id number], [facility] [address] [place] [phone] * (ABNORMAL) COMPREHENSIVE METABOLIC PANEL Routine (03/04/2025 8:34 AM EDT) Pathologist [facility] GLUCOSE 92 65 - 99 mg/dL [facility] Comment: Fasting reference interval UREA NITROGEN (BUN) 22 7 - 25 mg/dL [facility] CREATININE (blood) 0.73 0.70 - 1.30 mg/dL [facility] EGFR 110 > OR = 60 mL/min/1. 73m2 [facility] BUN/CREATININE RATIO SEE NOTE: [facility] Comment: Not Reported: BUN and Creatinine are within reference range. SODIUM 137 135 - 146 mmol/L [facility] POTASSIUM 3.6 3.5 - 5.3 mmol/L [facility] CHLORIDE 100 98 - 110 mmol/L [facility] CARBON DIOXIDE 30 20 - 32 mmol/L [facility] CALCIUM 9.1 8.6 - 10.3 mg/dL [facility] PROTEIN, TOTAL 7.4 6.1 - 8.1 g/dL [facility] ALBUMIN 4.3 3.6 - 5.1 g/dL [facility] GLOBULIN 3.1 1.9 - 3.7 g/dL (calc) [facility] ALBUMIN/GLOBULI N RATIO 1.4 1.0 - 2.5 (calc) [facility] BILIRUBIN, TOTAL 1.3(H) 0.2 - 1.2 mg/dL [facility] ALKALINE PHOSPHATASE 69 35 - 144 U/L [facility] AST 17 10 - 35 U/L [facility] ALT 19 9 - 46 U/L [facility] Blood Blood / Unknown 03/04/2025 8 :34 AM EDT 03/04/2025 8:35 AM EDT Narrative [facility] - 03/09/2025 1:00 PM EDT FASTING:YES Rose Mary Barnes PA-C LAB - BLOOD DRAW Edited Resu lt - Final [facility] [address] [address], [employer] [address] [phone] * REFERRAL FOR COLONOSCOPY (04/19/2022 3:00 AM EDT) 04/19/2022 3:00 AM EDT us Rose Mary Barnes PA-C REFERRAL Edited Resul t - Final * HEPATITIS C AB W/RFLX HCV RNA, QT, RT PCR (12/15/2020 9:14 AM EDT) HEPATITIS C ANTIBODY NON-REACT LYNDON NON-REACT LYNDON [facility] SIGNAL TO CUT-OFF 0.28 <1.00 [facility] Comment: HCV antibody was non-reactive. There is no laboratory evidence of HCV infection. In most cases, no further action is required. However, if recent HCV exposure is suspected, a test for HCV RNA (test code 49423) is suggested. For additional information please refer to http://education.Dibspace/faq/ZLC98o9 (This link is being provided for informational/ educational purposes only.) Blood Blood / Unknown 12/15/2020 9 :14 AM EDT 12/15/2020 9:15 AM EDT Rosy Severiano [employer] LAB - BLOOD DRAW Final Result [facility] [address] [address], [employer] [address] [address] from Last 3 Months or Most Recently Relevant to Health Maintenance Insurance [address] [employer] [place] Care Teams Pin Machine Tender Relationship Specialty Start Date End Date Rose Mary Barnes PA-C [address] [place] [address] PCP - General FAMILY MEDICINE, EAN 08/10/21
== END 2025-06-18 11:22 | disposition home or self-care (01) ==
LOC: HO.HOS 10:58
PROVIDERS: PCP Internal Medicine Hematology & Oncology; Visit Provider Orthopaedic Surgery
DX: M75.111 Incomplete rotator cuff tear or rupture of right shoulder, not specified as traumatic (principal)
CPT/HCPCS: 99024

== ENCOUNTER → 2025-06-18 10:58 | Outpatient (BNVA) | payer MEDICAID, SELFPAY | PROVIDERS: PCP Internal Medicine Hematology & Oncology; Visit Provider Orthopaedic Surgery | DX: M75.111 Incomplete rotator cuff tear or rupture of right shoulder, not specified as traumatic (principal) | CPT/HCPCS: 99212 ==

== ENCOUNTER 2025-06-24 06:25 | Day surgery (SDC) | payer MEDICAID, SELFPAY ==
--- OUTSIDE RECORDS SUMMARY | 2025-06-04 10:31 | XMS_ITS | Clinical Summary ---
Author Organization [facility] Address [address] [place] [address] Care Team Providers Care Detail Assembler Name Role Phone Unavailable Primary Care Provider Unavailabl e Encounters Date Type Department Care Team Description 03/24/2025 Population Health Risk Score [facility] (C3) Department [address] [id number] Provider, Population Health Generic from [...]
--- OUTSIDE RECORDS SUMMARY | 2025-06-04 10:31 | XMS_ITS | Clinical Summary ---
Author Organization [facility] Address [address] [place] [address] Care Team Providers Care Leak Detection Engineer Name Role Phone Rose Mary Barnes PA-C [...] times daily 452 g 2 4 Active tadalafiL (CIALIS) 20 mg tabletIndication s:Other male erectile dysfunction Take 1 Tablet by mouth once daily as needed for erectile dysfunction 10 Tablet 2 4 Active omeprazole (PRILOSEC) [address] capsuleIndicatio ns:Gastroesophag eal reflux disease without esophagitis Take 1 Capsule by mouth every morning before breakfast 90 Capsule 1 5 Active escitalopram (LEXAPRO) 20 mg tabletIndication s:Anxiety with depression TOME 1 TABLETA POR VIA ORAL TODOS [place] 90 Tablet 1 5 Active fluticasone (FLONASE) 50 mcg/actuation nasal spray INSTILL 2 SPRAYS INTO EACH NOSTRIL ONCE DAILY AT BEDTIME 5 Active azelastine (ASTELIN) 137 mcg (0.1 %) nasal spray INHALE 1 SPRAYS EACH NOSTRIL AT TWICE A DAY 5 Active atorvastatin (LIPITOR) 10 mg tabletIndication s:Prediabetes,Mi xed hyperlipidemia,E ssential hypertension Take 1 Tablet by mouth nightly at bedtime. 90 Tablet 1 5 Active levothyroxine 125 mcg tabletIndication s:Hypothyroidism , unspecified type Take 1 Tablet by mouth every morning before breakfast. 90 Tablet 5 Active cetirizine (ZYRTEC) 10 mg tabletIndication s:Environmental allergies Take 1 Tablet by mouth once daily. 90 Tablet 1 5 Active chlorthalidone (HYGROTEN) 25 mg tabletIndication s:Essential hypertension Take 1 Tablet by mouth once daily. 90 Tablet 5 Active Active Problems Problem Noted Date Diagnosed Date Carpal tunnel syndrome, bilateral upper limbs Trochanteric bursitis of left hip 06/13/2023 Arthritis [...] due to papillary microcarcinoma on 10/09/2016 at [place], [place]. 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 18 01/18/2021 Encounters Date Type Department Care Team Description 05/20/2025 Interim Notes [address] [phone] Bentley Bowie 05/12/2025 2:20 PM EDT Office Visit [facility] [address] [place] [phone] Esau Ngo DDS 04/27/2025 3:00 PM EDT Office Visit [facility] [address] [place] [phone] Anthony Jonessssita Tanner 03/19/2025 Results Follow-Up [address] [phone] Rose Mary Barnes PA-C 03/17/2025 Interim Notes [address] [phone] Scott Mitchell FNP-C 03/12/2025 Results Follow-Up [address] [phone] Rose Mary Barnes PA-C from Last 3 Months Immunizations Immunization Administration [...] Sign Reading Time Taken Comments Blood Pressure 108/66 02/24/2025 11:35 AM EDT Pulse 74 02/24/2025 11:35 AM EDT Temperature 37.1 C (98.7 F) 02/24/2025 11:35 AM EDT Respiratory Rate 16 02/24/2025 11:35 AM EDT Oxygen Saturation 99% 02/24/2025 11:35 AM EDT Inhaled Oxygen Concentration - - Weight 97.1 kg (214 lb) 02/24/2025 11:35 AM EDT Height 188 cm (6' 2 ) 02/24/2025 11:35 AM EDT Body Mass Index 27.48 02/24/2025 11:35 AM EDT Plan of Treatment Upcoming Encounters Date Type Department Care Team (Late st Contact Info) Description 06/24/2025 10:20 AM EDT Office Visit [facility] [address] [place] [phone] Jeni GERARDO berry [address] [place] [address] 07/22/2025 1:20 PM EST Office Visit [facility] [address] [place] [phone] Rose Mary Barnes PA-C [address] [place], [place] [phone] 10/29/2025 2:20 PM EST Office Visit [place] [address] [place] [phone] Kriss Jonessita aTnner [address] [place] [address] Health Maintenance Due Date Last Done Comments CT Colonography 2019 FIT/gFOBT 2019 Fecal DNA 2019 Flexible Sigmoidoscopy 2019 Imm-Pneumococcal 50+ (1 of 1 - PCV) 01/27/2024 Annual Wellness (Adult): Ind icated (All Coverage) 04/10/2025 04/10/2024, 10/25/2022, 01/18/2021, Additional history exists [id number] ( season) 2025 01/09/2024, 11/10/2022, 09/17/2021, Additional history exists Imm-Influenza (#1) 2025 06/05/2024, 1 10/30/2022, 09/17/2021, Additional history exists Depression Monitoring 05/27/2025 02/24/2025 , 09/16/2024, 06/05/2024, Additional history exists Anxiety Screening 09/16/2025 09/16/2024 Diabetes Screening 03/04/2026 03/04/2025, 0 10/15/2024, 10/15/2024, Additional history exists HIV Screening 03/04/2026 03/04/2025, 05/0 05/2024, 12/29/2022, Additional history exists Lipid Screening 03/04/2026 03/04/2025, 10/04, 05/02/2024, Additional history exists Syphilis Screening 03/04/2026 03/04/2025, 0 01/10/2024, 12/29/2022, Additional history exists Dental BW 04/29/2026 04/27/2025, 10/05, 04/10/2024, Additional history exists Dental Examination 04/29/2026 04/27/2025, 0 10/24/2024, 04/10/2024, Additional history exists Dental Perio Charting 04/29/2026 04/27/2025 , 04/10/2024, 01/09/2023, Additional history exists Dental Prophy 04/29/2026 04/27/2025, 10/05, 04/10/2024, Additional history exists Tobacco Screening 05/12/2026 05/12/2025 Imm-DTaP/Tdap/Td (2 - Td or Tdap) 10/17/2028 019 Dental FMX/Pano 07/13/2029 07/11/2024, 01/09/2023 Colonoscopy 04/19/2032 04/19/2022 Colorectal Cancer Screening 04/19/2032 Hepatitis C Screening Completed 12/15/2020 Imm-Hepatitis A Completed 06/15/2023, 04/0 03/2023, 11/10/2022 Imm-Hepatitis B Completed 06/15/2023, 04/0 03/2023, 11/10/2022 Alcohol and Drug Screen Completed 09/16/19, 06/05/2024, 04/10/2024, Additional history exists Imm-Zoster, Recombinant Completed 09/16/2024, 04/10 Procedures Procedure Name Priority Date/Time Associated Diagnosis Comments REFERRAL SCANNED DOCUMENT 05/18/2025 3:00 AM EDT CASE PRESENTATION SUBS DTL & EXTENSIVE TX PLN Routine 05/12/2025 2:20 PM EDT Abfraction 23 F(V) RESIN-BASED COMPOSITE ONE SURFACE ANTERIOR Routine 05/12/2025 2:20 PM EDT [employer] PERIODIC ORAL EVALUATION ESTABLISHED PATIENT Routine 04/27/2025 3:00 PM EDT Encounter for dental examination and cleaning without abnormal findings DENTAL CASE MANAGEMENT - MOTIVATIONAL INTV Routine 04/27/2025 3:00 PM EDT Encounter for dental examination and cleaning without abnormal findings PROPHYLAXIS - ADULT Routine 04/27/2025 3 :00 PM EDT Encounter for dental examination and cleaning without abnormal findings COMP PERIODONTAL EVALUATION - NEW/EST PATIENT Routine 04/27/2025 3:00 PM EDT Encounter for dental examination and cleaning without abnormal findings BITEWINGS - FOUR RADIOGRAPHIC IMAGES Routine 04/27/2025 3:00 PM EDT Encounter for dental examination and cleaning without abnormal findings CARIES RISK ASSESSMENT & DOC FINDING HIGH RISK Routine 04/27/2025 3:00 PM EDT Encounter for dental examination and cleaning without abnormal findings NUTRITIONAL COUNSELING CONTROL OF DENTAL DISEASE Routine 04/27/2025 3:00 PM EDT Encounter for dental examination and cleaning without abnormal findings ORAL HYGIENE INSTRUCTIONS Routine 04/27/2025 3:00 PM EDT Encounter for dental examination and cleaning without abnormal findings ORAL CANCER SCREENING Routine 04/27/2025 3:00 PM EDT Encounter for dental examination and cleaning without abnormal findings CASE PRESENTATION SUBS DTL & EXTENSIVE TX PLN Routine 04/27/2025 3:00 PM EDT Encounter for dental examination and cleaning without abnormal findings IMAGING SCANNED DOCUMENT 04/26/2025 3:00 AM EDT THYROID PANEL WITH TSH Routine 04/14/2025 3:18 PM EDT Hypothyroidism, unspecified type ASSAY OF FREE THYROXINE Routine 03/17/2025 10:10 AM EDT TSH W/RFLX FREE T4 Routine 03/17/2025 10 :10 AM EDT Hypothyroidism, unspecified type REFERRAL SCANNED DOCUMENT 03/12/2025 3:00 AM EDT C TRACHOMATIS/N GONORRHOEAE RNA,TMA Routine 03/04/2025 8:34 AM EDT Routine screening for STI (sexually transmitted infection) RPR (DIAGNOSIS) WITH REFLEX TO TITER AND CONFIRMATORY TESTING Routine 03/04/2025 8:34 AM EDT Routine screening for STI (sexually transmitted infection) HIV 1/2 AG & AB W/RFLX (4TH GEN) Routine 03/04/2025 8:34 AM EDT Routine screening for STI (sexually transmitted infection) LIPIDS W RFLX TO DIRECT LDL Routine 03/04/2025 8:34 AM EDT Prediabetes Mixed hyperlipidemia Essential hypertension COMPREHENSIVE METABOLIC PANEL Routine 03/04/2025 8:34 AM EDT Prediabetes Mixed hyperlipidemia Essential hypertension BLOOD COUNT COMPLETE AUTO&AUTO DIFRNTL WBC Routine 03/04/2025 8:34 AM EDT Prediabetes Mixed hyperlipidemia Essential hypertension PANORAMIC RADIOGRAPHIC IMAGE Routine 07/11/2024 2:00 PM EST Impacted third molar tooth REFERRAL FOR COLONOSCOPY Routine 04/19/2022 3:00 AM EDT Colon cancer screening HEPATITIS C AB W/RFLX HCV RNA, QT, RT PCR Routine 12/15/2020 9:14 AM EDT Screening for viral disease from Last 3 Months or Most Recently Relevant to Health Maintenance Results * REFERRAL SCANNED DOCUMENT (05/18/2025 3:00 AM EDT) Only the most recent of2 resultswithin the time period is included. 05/18/2025 3:00 AM EDT us Pop.itimar Barnes PA-C SCAN REFERRAL Final Result * IMAGING SCANNED DOCUMENT (04/26/2025 3:00 AM EDT) 04/26/2025 3:00 AM EDT us Rosimar Barnes PA-C SCAN IMAGING Final Result * THYROID PANEL WITH TSH Routine (04/14/2025 3:18 PM EDT) T-3 UPTAKE 27 22 - 35 % 04/15/2025 9:26 AM EDT [facility] T-4 (THYROXINE), TOTAL 8.8 4.9 - 10.5 mcg/dL 04/15/2025 9:26 AM EDT [facility] [place] [facility] FREE T4 INDEX (T7) 2.4 1.4 - 3.8 04/15/2025 9:26 AM EDT [facility] TSH 2.78 0.40 - 4.50 mIU/L 04/15/2025 10:04 AM EDT [facility] Blood Blood / Unknown 04/14/2025 3 :18 PM EDT 04/15/2025 7:21 AM EDT Rose Mary Barnes PA-C LAB - BLOOD DRAW Final Resul t [facility] [address] [address], [facility] [address] [address] * (ABNORMAL) TSH W/RFLX FREE T4 Routine (03/17/2025 10:10 AM EDT) TSH W/REFLEX TO FT4 0.20(L) 0.40 - 4.50 mIU/L [facility] Blood Blood / Unknown 03/17/2025 1 0:10 AM EDT 03/17/2025 10:11 AM EDT Scott LINARES-C LAB - BLOOD DRAW Final Re sult [facility] [address] [address], [facility] [address] [address] * ASSAY OF FREE THYROXINE Routine (03/17/2025 10:10 AM EDT) T-4, FREE 1.6 0.8 - 1.8 ng/dL [facility] 03/17/2025 10:1 0 AM EDT 03/17/2025 10:11 AM EDT Scott Stephen PROFESSOR OF FOOD BIOCHEMISTRY-C LAB - BLOOD DRAW Final Re sult Performing Organization Address City/[facility]/ZIP Co de Phone Number [facility] [address] [address], [facility] [address] [address] * RPR (DIAGNOSIS) WITH REFLEX TO TITER AND CONFIRMATORY TESTING Routine (03/04/2025 8:34 AM EDT) RPR (DX) W/REFL TITER AND CONFIRMATORY TESTING NON-REACT LYNDON NON-REACT LYNDON [facility] Comment: No laboratory evidence of syphilis. If recent exposure is suspected, submit a new sample in 2-4 weeks. Serum Blood / Unknown 03/04/2025 8 :34 AM EDT 03/04/2025 8:35 AM EDT Narrative [facility] - 03/09/2025 1:00 PM EDT FASTING:YES Rose Mary Barnes PA-C LAB - BLOOD DRAW Final Resul t Performing Organization Address [facility] Co de Phone Number [facility] [address] [address], [facility] [address] [address] * HIV 1/2 AG & AB W/RFLX (4TH GEN) Routine (03/04/2025 8:34 AM EDT) HIV Screen Final See Note [facility] Comment: HIV Negative HIV-1 antigen and HIV-1/HIV-2 antibodies were not detected. There is no laboratory evidence of HIV infection. HIV AG/AB, 4TH GEN NON-REACT LYNDON NON-REACT LYNDON [facility] Blood Blood / Unknown 03/04/2025 8 :34 AM EDT 03/04/2025 8:35 AM EDT Narrative [facility] - 03/09/2025 1:00 PM EDT FASTING:YES [employer] Rose Mary Barnes PA-C LAB - BLOOD DRAW Final Resul t Performing Organization Address City/[facility]/ZIP Co de Phone Number [facility] [address] [address], [facility] [address] [address] * CHLAMYDIA/NEISSERIA GONORRHOEAE RNA, TMA, UROGENITAL Urine Urine Routine (03/04/2025 8:34 AM EDT) CHLAMYDIA TRACHOMATIS RNA, TMA NOT DETECTED NOT DETECTED [facility] NEISSERIA GONORRHOEAE RNA, TMA NOT DETECTED NOT DETECTED [facility] COMMENT [facility] Urine Urine specimen / Unknown 03/04/2025 8:34 AM EDT 03/04/2025 8:35 AM EDT Narrative [facility] - 03/09/2025 1:00 PM EDT FASTING:YES The analytical performance characteristics of this assay, when used to test SurePath(TM) specimens have been determined by [employer]. The modifications have not been cleared or approved by the FDA. This assay has been validated pursuant to the CLIA regulations and is used for clinical purposes. For additional information, please refer to https://education.[employer]/faq/ZUD168 (This link is being provided for information/ educational purposes only.) us Rose Mary Barnes PA-C LAB BODY FLUIDS AND STOOLS A MBULATORY Edited Result - Final Performing Organization Address [facility] Co de Phone Number [facility] [address] [address], [facility] [address] [address] * (ABNORMAL) LIPIDS W RFLX TO DIRECT LDL Routine (03/04/2025 8:34 AM EDT) CHOLESTEROL, TOTAL 196 <200 mg/dL [facility] HDL CHOLESTEROL 34(L) > OR = 40 mg/dL [facility] TRIGLYCERIDES 106 <150 mg/dL [facility] LDL-CHOLESTEROL 140(H) 99 mg/dL (calc) [facility] Comment: Reference range: <100 Desirable range <100 mg/dL for primary prevention; <70 mg/dL for patients with CHD or diabetic patients with > or = 2 CHD risk factors. LDL-C is now calculated using the Edwina calculation, which is a validated novel method providing better accuracy than the Friedewald equation in the estimation of LDL-C. Hector LOMBARDO et al. RAAD. 2013;310(19): 3128-8463 (http://education.[employer]/faq/XXY088) CHOL/HDLC RATIO 5.8(H) <5.0 (calc) [facility] NON-HDL CHOLESTEROL 162(H) <130 mg/dL (calc) [facility] Comment: For patients with diabetes plus 1 major ASCVD risk factor, treating to a non-HDL-C goal of <100 mg/dL (LDL-C of <70 mg/dL) is considered a therapeutic option. Blood Blood / Unknown 03/04/2025 8 :34 AM EDT 03/04/2025 8:35 AM EDT Narrative [employer] [facility] - 03/09/2025 1:00 PM EDT FASTING:YES Rose Mary Barnes PA-C LAB - BLOOD DRAW Final Resul t [facility] [address] [place] [address], [facility] [address] [place] [phone] * BLOOD COUNT COMPLETE AUTO&AUTO DIFRNTL WBC Routine (03/04/2025 8:34 AM EDT) WHITE BLOOD CELL COUNT 5.1 3.8 - 10.8 Thousand/ uL [facility] RED BLOOD CELL COUNT 4.61 4.20 - 5.80 Million/u L [facility] HEMOGLOBIN 13.6 13.2 - 17.1 g/dL [facility] HEMATOCRIT 42.3 38.5 - 50.0 % [facility] MCV 91.8 80.0 - 100.0 fL [facility] MCH 29.5 27.0 - 33.0 pg [facility] MCHC 32.2 32.0 - 36.0 g/dL [facility] Comment: For adults, a slight decrease in the calculated MCHC value (in the range of 30 to 32 g/dL) is most likely not clinically significant; however, it should be interpreted with caution in correlation with other red cell parameters and the patient's clinical condition. RDW 13.6 11.0 - 15.0 % [facility] PLATELET COUNT 307 140 - 400 Thousand/ uL [facility] MPV 9.2 7.5 - 12.5 fL [facility] ABSOLUTE NEUTROPHILS 3,269 1,500 - 7,800 cells/uL [facility] ABSOLUTE LYMPHOCYTES 1,122 850 - 3,900 cells/uL [facility] ABSOLUTE MONOCYTES 607 200 - 950 cells/uL [facility] ABSOLUTE EOSINOPHILS 71 15 - 500 cells/uL [facility] ABSOLUTE BASOPHILS 31 0 - 200 cells/uL [facility] NEUTROPHILS PCT 64.1 % [employer] LYMPHOCYTES 22.0 % [facility] [employer] MONOCYTES 11.9 % [employer] DIAG [email or web address] EOSINOPHILS 1.4 % Swag [employer] DI [employer] BASOPHILS 0.6 % [email or web address] Blood Blood / Unknown 03/04/2025 8 :34 AM EDT 03/04/2025 8:35 AM EDT Narrative [employer] [facility] - 03/09/2025 1:00 PM EDT FASTING:YES Rose Mary Barnes PA-C LAB - BLOOD DRAW Edited Resu lt - Final [employer] [facility] [address] [place] [address], [facility] [address] [place] [phone] * (ABNORMAL) COMPREHENSIVE METABOLIC PANEL Routine (03/04/2025 8:34 AM EDT) GLUCOSE 92 65 - 99 mg/dL [facility] Comment: Fasting reference interval UREA NITROGEN (BUN) 22 7 - 25 mg/dL [facility] CREATININE (blood) 0.73 0.70 - 1.30 mg/dL [facility] EGFR 110 > OR = 60 mL/min/1. 73m2 [facility] BUN/CREATININE RATIO SEE NOTE: 6 - [facility] Comment: Not Reported: BUN and Creatinine are within reference range. SODIUM 137 135 - 146 mmol/L [facility] POTASSIUM 3.6 3.5 - 5.3 mmol/L [facility] CHLORIDE 100 98 - 110 mmol/L [facility] CARBON DIOXIDE 30 20 - 32 mmol/L [facility] CALCIUM 9.1 8.6 - 10.3 mg/dL [facility] PROTEIN, TOTAL 7.4 6.1 - 8.1 g/dL [facility] ALBUMIN 4.3 3.6 - 5.1 g/dL [facility] GLOBULIN 3.1 1.9 - 3.7 g/dL (calc) [facility] ALBUMIN/GLOBULI N RATIO 1.4 1.0 - 2.5 (calc) [facility] BILIRUBIN, TOTAL 1.3(H) 0.2 - 1.2 mg/dL [facility] ALKALINE PHOSPHATASE 69 35 - 144 U/L [facility] AST 17 10 - 35 U/L [facility] ALT 19 9 - 46 U/L [facility] Blood Blood / Unknown 03/04/2025 8 :34 AM EDT 03/04/2025 8:35 AM EDT Narrative [facility] - 03/09/2025 1:00 PM EDT FASTING:YES us Rose Mary Barnes PA-C LAB - BLOOD DRAW Edited Resu lt - Final [facility] [address] [address], [facility] [address] [address] * REFERRAL FOR COLONOSCOPY (04/19/2022 3:00 AM EDT) 04/19/2022 3:00 AM EDT us Rose Mary Barnes PA-C REFERRAL Edited Resul t - Final * HEPATITIS C AB W/RFLX HCV RNA, QT, RT PCR (12/15/2020 9:14 AM EDT) HEPATITIS C ANTIBODY NON-REACT LYNDON NON-REACT LYNDON [facility] SIGNAL TO CUT-OFF 0.28 <1.00 [facility] Comment: HCV antibody was non-reactive. There is no laboratory evidence of HCV infection. In most cases, no further action is required. However, if recent HCV exposure is suspected, a test for HCV RNA (test code 09733) is suggested. For additional information please refer to http://education.[employer]/faq/MKH78s4 (This link is being provided for informational/ educational purposes only.) Blood Blood / Unknown 12/15/2020 9 :14 AM EDT 12/15/2020 9:15 AM EDT Rosy العلي PROFESSOR OF FOOD BIOCHEMISTRY LAB - BLOOD DRAW Final Result [facility] [place] [facility] [address] [address], [facility] [address] [address] from Last 3 Months or Most Recently Relevant to Health Maintenance Insurance [address] [employer] [place] MEDICAID DENTAL Care Teams Leak Detection Engineer Relationship Specialty Start Date End Date Rose Mary Barnes PA-C [address] [place] [address] PCP - General FAMILY MEDICINEEAN 08/10/21
--- OUTSIDE RECORDS SUMMARY | 2025-06-04 10:31 | XMS_ITS | Clinical Summary ---
Author Organization [address] [place] [address] [place] [phone] Phone Care Team Providers Care Economic Development Specialist Name Role Phone Rose Mary Barnes Primary Care Provider [phone] Active Problems Problem Noted Date Diagnosed Date Carpal tunnel syndrome, bilateral upper limbs Immunizations Immunization Administration Dates Next Due Moderna SARS-CoV-2 COVID-19, mRNA, LNP-S, preservative free 09/17/2021,01/20/2021,12/25/2020 Surgical History Surgery Date Site/Laterality Comments OTHER SURGICAL HISTORY 02/22/2021 N/A PROCEDURE: PA RPR UMBILICAL HRNA 5 YRS/> REDUCIBLE; COMMENT: [...] Last Done Comments Colorectal Cancer Screening: Colonoscopy 1974 HIV Screening 08/01/2022 Social Influencers of Health Screening 08/01/2022 Pneumococcal Vaccine: 50+ Years (1 of 1 - PCV) 01/27/2024 Depression Screening 09/03/2024 COVID-19 Vaccine ( - season) 2025 01/09/2024, 11/10/2022, 09/17/2021, Additional history exists Influenza Vaccine (#1) 2025 , 08/29/2023, 09/17/2021, Additional history exists Hypertension/CHF/CAD Annual BMP Blood Test 10/15/2025 10/15/2024, 05/02/2024 DTaP,Tdap,and Td Vaccines (2 - Td or Tdap) 10/17/2028 10/17/2018 Cholesterol Screening (Lipid Panel) 10/15/2029 10/15/2024, 10/15/2024, 05/02/2024, Additional history exists RSV Immunization Adult Patients (1 - 1-dose 75+ series) 2049 Hepatitis C Screening Completed 12/15/2020 Hepatitis A [...] DOMINANT RIGHT HAND WITH FULL ROM AND OUTSIDE SALES REPRESENTATIVE TO 70 POUNDS. CONTINUES TO HAVE LEFT HAND PAIN AT [facility]OLAR WRIST AND SCAR DESCRIBED SHOOTING WHICH IS WORSE AT NIGHT AND AFTER HEAVY GRIPPING TASKS. HE DID REGAIN FULL ROM AND OUTSIDE SALES REPRESENTATIVE TO 45 POUNDS Insurance MEDICAID - [place] Care Teams Economic Development Specialist Relationship Specialty Start Date End Date Rose Mary Barnes PA [address] [place] [address] PCP - General 07/29/24
--- OUTSIDE RECORDS SUMMARY | 2025-06-04 10:31 | XMS_ITS | Encounter Summary ---
Author Organization [facility] Address [address] [place] [address] Care Team Providers Care Revenue Officer Name Role Phone Rose Mary Barnes PA-C Primary Care Provider [phone] Encounter Details Date Type Department Care Team (Late st Contact Info) Description 12/23/2024 [facility] [address] [place] [phone] Rose Mary Barnes PA-C [address] [place] [address] Social History Tobacco Use Types Packs/Day Years [...] Description 06/24/2025 10:20 AM EDT Office Visit [facility] [address] [place] [phone] Esau Ngo DDS [address] [place] [address] 07/22/2025 1:20 PM EST Office Visit [place] [address] [address] [place] [phone] Rose Mary Barnes PA-C [address] [place] [address] 10/29/2025 2:20 PM EST Office Visit [facility] [place] [phone] Leatha Jones Y [address] [place] [address] documented as of this encounter Procedures Procedure Name Priority Date/Time Associated Diagnosis Comments PATHOLOGY SCANNED DOCUMENT 12/23/2024 3:00 AM EDT documented in this encounter Results * PATHOLOGY SCANNED DOCUMENT (12/23/2024 3:00 AM EDT) 12/23/2024 3:00 AM EDT Rose Mary Barnes PA-C SCAN LAB Final Result documented in this encounter Visit Diagnoses Not on filedocumented in this encounter Additional Health Concerns Assessment Noted Time PHQ-9 Depression Total Score: 0 09/16/19 25 11:49 AM PST A Depression follow-up plan has been documented for the patient 11/07/2021 10:22 AM PST documented as of this encounter Care Teams Revenue Officer Relationship Specialty Start Date End Date Rose Mary Barnes PA-C [address] [place] [address] PCP - General FAMILY MEDICINEEAN 08/10/21 documented as of this encounter
[2025-06-18 14:42] VITALS: BMI 27.6
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
[2025-06-24 06:28] VITALS: BP 105/70; PULSE 77; RESP 16; TEMP 36.1; O2SAT 96
[2025-06-24] MEDS: Lactated Ringers 1,000 ML 100 ML IVCONT (06:46)
--- NOTE | 2025-06-24 07:28 | MHC.SHP ---
Pre-Procedural Eval Section A - 24 Hr Update-Section A only Date of Service: 06/24/25 The patient is an INPATIENT: No Changes since office visit: No Cold of Flu in the past 2 weeks, No New Medical Problems, No Changes in Medication and No Patient answered all questions The patient has been examined within 24 hours of the surgical procedure. The History & Physical has been completed within 30 days and I have reviewed it.: Yes Section B - Complete if H&P > 30 days Chief Complaint: Incomplete rotator cuff tear or rupture of right Allergies: Allergies Allergy/AdvReac Type Severity Reaction Status Date / Time Penicillins Allergy Unknown Verified 06/01/25 15:09 Plan I have reviewed the history and physical and performed a pertinent physical examination on my patient. No changes have occurred unless specified. Time Spent With Patient Time: Total time managing care of this patient today ____ minutes.
[2025-06-24 10:35] VITALS: BP 131/80; PULSE 64; RESP 12; TEMP 36.1; O2SAT 97
[2025-06-24 10:40] VITALS: BP 129/71; PULSE 66; RESP 14; O2SAT 97
[2025-06-24 10:45] VITALS: BP 121/70; PULSE 67; RESP 14; O2SAT 94
[2025-06-24 10:50] VITALS: BP 123/59; PULSE 71; RESP 16; O2SAT 94
[2025-06-24 11:05] VITALS: BP 105/59; PULSE 73; RESP 16; TEMP 36.1; O2SAT 96
--- NOTE | 2025-06-24 11:14 | P.BOP_ITS ---
Brief Operative Note Date of Service: 06/24/25 Pre-op diagnosis: Right rtc tear Post-op diagnosis: other (Right RTC tear; Right biceps tendon tear) Procedure: Right RTC repair, Biceps tenotomy, SAD Implants: Styles and Nephew 4.75 x 2 medial row x2 and 5.0 lateral x 2 Surgeon: Alexandro Harvey MD Anesthesia: GETA and regional Was an Senior Physical Therapist used for this Procedure?: Yes Senior Physical Therapist: Lolis Ag Estimated blood loss (mL): 20 IV fluids (mL): 1,000 Pathology: none sent Condition: stable Disposition: PACU
--- NOTE | 2025-06-26 08:14 | P.OP_ITS ---
Operative Note Operative Note Date of Service: 06/24/25 Narrative: Date of Service: 06/24/25 Pre-op diagnosis: Right rtc tear Post-op diagnosis: other (Right RTC tear; Right biceps tendon tear) Procedure: Right RTC repair, Biceps tenotomy, SAD Implants: Styles and Nephew 4.75 x 2 medial row x2 and 5.0 lateral x 2 Surgeon: Alexandro Harvey MD Anesthesia: GETA and regional Was an Artifacts Conservator used for this Procedure?: Yes Artifacts Conservator: Lolis Ag Estimated blood loss (mL): 20 IV fluids (mL): 1,000 Pathology: none sent Condition: stable Disposition: PACU Procedure in detail: Patient was brought to the operating room and placed the the beach chair position. All bony prominences were well padded and the limb was prepped and draped in standard sterile fashion. A time out was called to identify proper site, proper procedure and proper surgeon. IV antibiotics per weight were admi nistered. I began by making a posterolateral stab incision with a 15 blade. A blunt trochar was placed into the glenohumeral joint and I insufflated the joint with saline and a 30 degree arthroscope was placed. Under direct visualization, I established an outside- in anterior portal just distal to the biceps tendon and proximal to the subscapularis. I began my inspection of the glenohumeral joint. There was a large degenerative SLAP tear at hte biceps anchor. There were minimal cartilage changes at the inferior glenoid without humeral head changes. There was a full thickness tear of the supraspinatus with no retraction.. The subcapularis was intact. I debrided the loose cartilage of the glenoid and the degenerative labral tearing and performed a biceps tenotomy. I then removed the trochar and entered the subacromial space. A direct lateral portal was then established and I performed a bursectomy. The cuff was then examined. There was a full thickness tear of the supraspinatus without retraction. I debrided the edges of the tear and established a second lateral portal. I insured that I was able to visualize the entirety of the tear and that the undersurface was well visualized. I then placed 4 looped sutures through the tear for suture shuttling. I placed two medial row double loaded anchors after using a tap just adjacent to the articular cartilage and then brought the suture limbs ( 8) through the medial cuff using the looped sutures. I then debrided the bare area down to bleeding bone and, using a cross bridge configuration, brought 4 limbs to each of two lateral 5.0 anchors in standard cross bridge configuration,. This re-approximated the cuff anatomy anatomically. Once I was satisfied with the repair final images were captured and a 5mm anterior subacromial decompression was performed using an oval gloria via the anterolateral portal. I was satisfied with the resection and final pictures were taken. I then removed all instrumentation. Portals were closed with nylon. Patient was placed in an abduction sling, extubated and brought to the recovery room in stable condition. There were no known complications.
== END 2025-06-24 12:32 | disposition home or self-care (01) ==
LOC: HO.SSS 06:25
PROVIDERS: PCP Dentist General Practice; Visit Provider Orthopaedic Surgery
PROC: (CPT 29827; principal; 2025-06-24 08:30)
DX: M75.111 Incomplete rotator cuff tear or rupture of right shoulder, not specified as traumatic (principal); M66.821 Spontaneous rupture of other tendons, right upper arm; M25.511 Pain in right shoulder; I10 Essential (primary) hypertension; E78.00 Pure hypercholesterolemia, unspecified; E89.0 Postprocedural hypothyroidism; F32.A Depression, unspecified; F41.9 Anxiety disorder, unspecified; Z85.850 Personal history of malignant neoplasm of thyroid; Z88.0 Allergy status to penicillin; Z87.81 Personal history of (healed) traumatic fracture; Z87.828 Personal history of other (healed) physical injury and trauma; Z98.890 Other specified postprocedural states; Z56.0 Unemployment, unspecified
CPT/HCPCS: 29827; 29822; 29826; C1713; J0131; J0165; J0330; J0665; J0736; J1100; J2003; J2250; J2405; J2704; J3010

== ENCOUNTER → 2025-06-24 06:25 | Outpatient (BNV) | payer MEDICAID, SELFPAY | PROVIDERS: PCP Dentist General Practice; Visit Provider Orthopaedic Surgery | DX: M75.111 Incomplete rotator cuff tear or rupture of right shoulder, not specified as traumatic (principal); S43.431A Superior glenoid labrum lesion of right shoulder, initial encounter | CPT/HCPCS: 29827 ==

== ENCOUNTER 2025-07-02 13:32 | Outpatient (AMB) | payer MEDICAID, SELFPAY ==
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
--- OUTSIDE RECORDS SUMMARY | 2025-07-02 16:34 | XMS_ITS | Clinical Summary ---
Author Organization [address] [place] [address] [place] [id number] Phone Care Team Providers Care Deck And Hull Assembler Name Role Phone Rose Mary Barnes Primary Care Provider [phone] Active Problems Problem Noted Date Diagnosed Date Carpal tunnel syndrome, bilateral upper limbs Immunizations Immunization Administration Dates Next Due Moderna SARS-CoV-2 COVID-19, mRNA, LNP-S, preservative free 09/17/2021,01/20/2021,12/25/2020 Surgical History Surgery Date Site/Laterality Comments OTHER SURGICAL HISTORY 02/22/2021 N/A PROCEDURE: NE RPR UMBILICAL HRNA 5 YRS/> REDUCIBLE; COMMENT: [...] history exists Hypertension/CHF/CAD Annual BMP Blood Test 03/04/2026 03/04/2025, 10/15/2024, 05/02/2024 DTaP,Tdap,and Td Vaccines (2 - Td or Tdap) 10/17/2028 10/17/2018 Cholesterol Screening (Lipid Panel) 03/04/2030 03/04/2025, 10/15/2024, 10/15/2024, Additional history exists RSV Immunization Adult Patients [...] DOMINANT RIGHT HAND WITH FULL ROM AND BODILY INJURY ADJUSTER TO 70 POUNDS. CONTINUES TO HAVE LEFT HAND PAIN AT VOLAR WRIST AND SCAR DESCRIBED SHOOTING WHICH IS WORSE AT NIGHT AND AFTER HEAVY GRIPPING TASKS. HE DID REGAIN FULL ROM AND BODILY INJURY ADJUSTER TO 45 POUNDS Insurance MEDICAID - [place] Care Teams Deck And Hull Assembler Relationship Specialty Start Date End Date Rose Mary Barnes PA [address] [place] [address] PCP - General 07/29/24
--- OUTSIDE RECORDS SUMMARY | 2025-07-02 16:34 | XMS_ITS | Clinical Summary ---
Author Organization [employer] Address [address] [place] [address] [address] [place] [address] Care Team Providers Care Patient Services Coordinator Name Role Phone Unavailable Primary Care Provider Unavailabl e Social History Tobacco Use Types Packs/Day Years [...] - PCV) 01/27/2024 COVID-19 Vaccine ( season) 2025 01/09/2024, 11/10/2022, 09/17/2021, Additional [...] Completed 09/16/2024, 04/10/2024 HIV Screening Completed 03/04/2025, 05/2024, 12/29/2022, Additional history exists HIB Vaccines Aged Out [...]
== END 2025-07-02 15:12 | disposition home or self-care (01) ==
LOC: HO.HOS 13:33
PROVIDERS: PCP Internal Medicine Hematology & Oncology; Visit Provider Physician Assistant
DX: Z98.890 Other specified postprocedural states (principal)
CPT/HCPCS: 99024

== ENCOUNTER → 2025-07-02 13:32 | Outpatient (BNVA) | payer MEDICAID, SELFPAY | PROVIDERS: PCP Internal Medicine Hematology & Oncology; Visit Provider Physician Assistant | DX: Z98.890 Other specified postprocedural states (principal) | CPT/HCPCS: 99212 ==

== ENCOUNTER 2025-08-06 12:27 | Outpatient (AMB) | payer MEDICAID, SELFPAY ==
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
== END 2025-08-06 13:34 | disposition home or self-care (01) ==
LOC: HO.HOS 12:27
PROVIDERS: PCP Internal Medicine Hematology & Oncology; Visit Provider Physician Assistant
DX: Z98.890 Other specified postprocedural states (principal)
CPT/HCPCS: 99024

== ENCOUNTER → 2025-08-06 12:27 | Outpatient (BNVA) | payer MEDICAID, SELFPAY | PROVIDERS: PCP Internal Medicine Hematology & Oncology; Visit Provider Physician Assistant | DX: Z47.89 Encounter for other orthopedic aftercare (principal) | CPT/HCPCS: 99212 ==

== ENCOUNTER 2025-08-20 10:45 | Outpatient (AMB) | payer MEDICAID, SELFPAY ==
--- OUTSIDE RECORDS SUMMARY | 2025-08-17 15:00 | XMS_ITS | Encounter Summary ---
Author Organization [facility] Address [address] [place] [address] Care Team Providers Care Warrant Clerk Name Role Phone Rose Mary Barnes Primary Care Provider [phone] Reason for Visit * Consultation (Routine) - Authorized Specialty Diagnoses / Procedures Referred By Lori tanner Referred To Contact Physical Therapy Diagnoses Other specified postprocedural states Lolis Ag PA [address] [place] [address] Referral ID Status Reason Start Date Expiration Date Visits Requested Visits Authorized [id number] Authorized Specialty Services Required 07/03/2026 20 9 Encounter Details Date Type Department Care Team (Late st Contact Info) Description 08/17/2025 3:00 PM EST Treatment [address] [phone] Levi Thomason, PT Right shoulder pain, unspecified chronicity (Primary Dx) Social History Tobacco Use Types Packs/Day Years Used Date Smoking Tobacco: Never Smokeless Tobacco: Never Alcohol Use Standard Drinks/Week Comments Never 0 (1 standard drink = 0.6 oz pur e alcohol) Sex and Gender Information Value Date Recorded Sex Assigned at Not on file Legal Sex Male 10:26 AM EST Gender Identity Not on file Sexual Orientation Not on file documented as of this encounter Progress Notes * Levi Thomason, PT - 08/17/2025 3:00 PM EST [facility] - Outpatient PHYSICAL THERAPY DAILY TREATMENT NOTE - OP Date: 08/17/2025 Visit Number: 4 Patient Name: Manjinder Choe Mir Moreno : 1975 Age: 50 y.o. Gender: male Diagnosis: No diagnosis found. Date of Onset/Surgery: Multiple active episodes found Referring Provider: Lolis Ag PA Insurance: Payor: MEDICAID ADVANTAGE GENERIC / Plan[place] MEDICAID ADVANTAGE [place] / Product Type: *No Product type* / Patient Identified by: Levi Thomason PT Language: Speaks and understands Mosotho as preferred language with no merchandise planning manager required Medications: Medications Ordered Prior to Encounter[1] Allergies: has no allergies on file. Precautions: Fall risk: No SUBJECTIVE Subjective Report: Pt reports no new complaints. Chart Reviewed: Yes Pain: Right shoulder pain 12/11 TREATMENT INTERVENTION: Right shoulder therex: Wand flexion, Abducton, ER each x10 x2 sets Standing green t-band shoulder ER and IR x10 x2 sets Standing B shoulder rows vs blue t-band x10 Active shoulder abduction x10 Isometric right shoulder flexion, abduction, extension, each with 5 sec hold x10 x2 sets ASSESSMENT/Response to Treatment Good Pt with increasing active motion of RUE as seen with active abduction ex as above Patient Education: Education provided: HEP Education Provided To: Patient utilizing Explanation and Demonstration mode(s) of education Response to Education: Applied Knowledge and Verbal Understanding PLAN POC Development/Review: No Change in the Plan of Care; Participants: Patient Interventions Time Entry: Modalities: Therapeutic procedures: Total Treatment Time: 30 Documentation completed by eLvi Thomason PT [1] No current outpatient medications on file prior to visit. No current facility-administered medications on file prior to visit. documented in this encounter Plan of Treatment Upcoming Encounters Date Type Department Care Team (Late st Contact Info) Description 08/20/2025 3:00 PM EST Treatment [facility] [address] [phone] Guille Maria PTA 08/24/2025 3:15 PM EST Treatment [facility] [address] [phone] Piter Bowman PTA documented as of this encounter Goals Goal Patient Goal Type Associated Problems Recent Progress Patient-Stated? Author <enter goal here> General On track( 025 4:42 PM EDT) Yes Loren Hagan OT Note: OT PATIENT GOAL REGAIN FULL USE BOTH HANDS WITHOUT PAIN HAS REGAINED FULL FUNCTIONAL USE DOMINANT RIGHT HAND WITH FULL ROM AND CRYSTAL GROWER TO 70 POUNDS. CONTINUES TO HAVE LEFT HAND PAIN AT VOLAR WRIST AND SCAR DESCRIBED SHOOTING WHICH IS WORSE AT NIGHT AND AFTER HEAVY GRIPPING TASKS. HE DID REGAIN FULL ROM AND CRYSTAL GROWER TO 45 POUNDS PT LTGs General No Levi Thomason, PT Note: Pt will be independent with upper body dressing using RUE Pt will report no right shoulder pain with upper body ADLs Pt will return to full, daily activity with dominant RUE without pain Pt will be independent with HEP PT STGs General No Levi Thomason, PT Note: Pt will increase Right shoulder PROM to 50% WNL Pt will rpeort right hsoulder pain no greater than 2/10 with PROM testing Further goals to be established once MD protocol is received documented as of this encounter Visit Diagnoses Diagnosis Right shoulder pain, unspecified chronicity- Primary documented in this encounter Care Teams Warrant Clerk Relationship Specialty Start Date End Date Rose Mary Barnes PA [facility] [place] [address] PCP - General 07/29/24 documented as of this encounter
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
[2025-08-20 10:53] VITALS: BMI 27.5
--- OUTSIDE RECORDS SUMMARY | 2025-08-20 13:43 | XMS_ITS | Clinical Summary ---
Author Organization [address] [facility] Address [address] [place] [address] Phone Care Team Providers Care Steward/Stewardess Name Role Phone Rose Mary Barnes Primary Care Provider [phone] Active Problems Problem Noted Date Diagnosed Date Carpal tunnel syndrome, bilateral upper limbs Encounters Date Type Department Care Team Description 08/17/2025 3:00 PM EST Treatment [address] [phone] Levi Thomason, PT Right shoulder pain, unspecified chronicity (Primary Dx) 08/13/2025 3:00 PM EST Treatment [address] [phone] Levi Thomason, PT Right shoulder pain, unspecified chronicity (Primary Dx) 08/10/2025 3:30 PM EST Treatment [address] [phone] Guille Maria, FORKLIFT TECHNICIAN Right shoulder pain, unspecified chronicity (Primary Dx) 08/03/2025 3:30 PM EST Treatment [facility] [address] [phone] Guille Maria, FORKLIFT TECHNICIAN Right shoulder pain, unspecified chronicity (Primary Dx); Other specified postprocedural states 07/29/2025 3:00 PM EST Treatment [address] [phone] Maldonado Solano, FORKLIFT TECHNICIAN Other specified postprocedural states (Primary Dx) 07/06/2025 12:30 PM EST Evaluation [facility] [address] [phone] Levi Thomason, PT Other specified postprocedural states from Last 3 Months Immunizations Immunization Administration Dates Next Due Moderna SARS-CoV-2 COVID-19, mRNA, LNP-S, preservative free 09/17/2021,01/20/2021,12/25/2020 Surgical History Surgery Date Site/Laterality Comments OTHER SURGICAL HISTORY 02/22/2021 N/A PROCEDURE: NC RPR UMBILICAL HRNA 5 YRS/> REDUCIBLE; COMMENT: open umbilical hernia repair with mesh - Dr. Star [facility] Social History Tobacco Use Types Packs/Day [...] Orientation Not on file Plan of Treatment Upcoming Encounters Date Type Department Care Team (Late st Contact Info) Description 08/20/2025 3:00 PM EST Treatment [facility] [address] [phone] Guille Maria PTA 08/24/2025 3:15 PM EST Treatment [facility] [address] [phone] Piter Bowman PTA Health Maintenance Due Date Last Done Comments Colorectal Cancer Screening: Colonoscopy 1975 HIV Screening 08/01/2022 Social Influencers of Health Screening 08/01/2022 Pneumococcal Vaccine: 50+ Years (1 of 1 - PCV) 01/27/2024 Depression Screening 09/03/2024 COVID-19 Vaccine ( season) 2025 01/09/2024, 11/10/2022, 09/17/2021, Additional history exists Influenza Vaccine (#1) 2025 , 08/29/2023, 09/17/2021, Additional history exists Hypertension/CHF/CAD Annual BMP Blood Test 07/24/2026 07/24/2025, 03/04/2025, 10/15/2024, Additional history exists DTaP,Tdap,and Td Vaccines (2 - Td or Tdap) 10/17/2028 10/17/2018 Cholesterol Screening (Lipid Panel) 07/24/2030 07/24/2025, 03/04/2025, 10/15/2024, Additional history exists RSV Immunization Adult [...] DOMINANT RIGHT HAND WITH FULL ROM AND MOVEMENT EDUCATION SPECIALIST TO 70 POUNDS. CONTINUES TO HAVE LEFT HAND PAIN AT VOLAR WRIST AND SCAR DESCRIBED SHOOTING WHICH IS WORSE AT NIGHT AND AFTER HEAVY GRIPPING TASKS. HE DID REGAIN FULL ROM AND MOVEMENT EDUCATION SPECIALIST TO 45 POUNDS PT LTGs General No [...] be established once MD protocol is received Insurance MEDICAID ADVANTAGE GENERIC Care Teams Steward/Stewardess Relationship Specialty Start Date End Date Rose Mary Barnes PA [address] [place] [address] PCP - General 07/29/24
--- OUTSIDE RECORDS SUMMARY | 2025-08-20 13:43 | XMS_ITS | Clinical Summary ---
Author Organization [employer] Address [address] [place] [address] [address] [place] [address] Care Team Providers Care Hand Worker Name Role Phone Unavailable Primary Care Provider [...]
== END 2025-08-20 12:11 | disposition home or self-care (01) ==
LOC: HO.HOS 10:45
PROVIDERS: PCP Internal Medicine Hematology & Oncology; Visit Provider Physical Medicine & Rehabilitation
DX: M54.2 Cervicalgia (principal); G89.29 Other chronic pain; M54.50 Low back pain, unspecified
CPT/HCPCS: 99214

== ENCOUNTER 2025-08-20 10:45 | Outpatient (REF) | payer MEDICAID, SELFPAY ==
--- NOTE | ~2025-08-20 | XR_ITS ---
EXAMINATION: XR CERVICAL SPINE CLINICAL INFORMATION: M54.2 - Cervicalgia COMPARISON: None available. TECHNIQUE: AP lateral and atlantoodontoid views. FINDINGS: Craniocervical junction is intact. Limbus vertebral C4, C5 and C6. No acute cortical disruption or malalignment. No lytic or blastic lesions. XR/XR cervical spine 3V IMPRESSION: Mild spondylosis without acute fracture or listhesis. EXAMINATION: XR LUMBOSACRAL SPINE CLINICAL INFORMATION: M54.9 -dorsalgia, unspecified COMPARISON: None available. TECHNIQUE: AP and lateral views upright position. FINDINGS: Multilevel endplate sclerosis and small marginal osteophyte formation. No acute cortical disruption or malalignment. Trabeculated sclerotic abnormality in the vertebral body of L3. No lytic or blastic lesions. IMPRESSION: Multilevel thoracolumbar spondylosis without acute fracture or gross listhesis. 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 Electronically signed by: Michael Kelly MD 08/20/2025 11:39 AM [facility]
--- NOTE | ~2025-08-20 | XR_ITS ---
EXAMINATION: XR CERVICAL SPINE CLINICAL INFORMATION: M54.2 - Cervicalgia COMPARISON: None available. TECHNIQUE: AP lateral and atlantoodontoid views. FINDINGS: Craniocervical junction is intact. Limbus vertebral C4, C5 and C6. No acute cortical disruption or malalignment. No lytic or blastic lesions. XR/XR lumbar spine 2-3V IMPRESSION: Mild spondylosis without acute fracture or listhesis. EXAMINATION: XR LUMBOSACRAL SPINE CLINICAL INFORMATION: M54.9 -dorsalgia, unspecified COMPARISON: None available. TECHNIQUE: AP and lateral views upright position. FINDINGS: Multilevel endplate sclerosis and small marginal osteophyte formation. No acute cortical disruption or malalignment. Trabeculated sclerotic abnormality in the vertebral body of L3. No lytic or blastic lesions. IMPRESSION: Multilevel thoracolumbar spondylosis without acute fracture or gross listhesis. 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 Electronically signed by: Michael Kelly MD 08/20/2025 11:39 AM [facility]
== END 2025-08-20 10:46 | disposition home or self-care (01) ==
LOC: HO.HOSX 10:45
PROVIDERS: PCP Internal Medicine Hematology & Oncology; Visit Provider Physical Medicine & Rehabilitation
DX: G89.29 Other chronic pain (principal); M54.2 Cervicalgia; M54.50 Low back pain, unspecified
CPT/HCPCS: 72040; 72100

== ENCOUNTER → 2025-08-20 11:17 | Outpatient (BNV) | payer MEDICAID, SELFPAY | PROVIDERS: PCP Internal Medicine Hematology & Oncology; Visit Provider Radiology Diagnostic Radiology | DX: M47.812 Spondylosis without myelopathy or radiculopathy, cervical region (principal); M47.815 Spondylosis without myelopathy or radiculopathy, thoracolumbar region | CPT/HCPCS: 72040; 72100 ==